=== PATIENT | female | born 1950 | race Caucasian/White ===

== ENCOUNTER 2017-10-18 01:54 | Emergency (ER) | payer MEDICARE, BC ==
[2017-10-18 02:04] VITALS: BP 143/70
--- NOTE | 2017-10-18 02:43 | EDM.PDOC ---
ED HPI GENERAL MEDICAL PROBLEM - General Chief Complaint: Cardiovascular Problem Stated Complaint: BOTH LEGS ARE SWOLLEN Time Seen by Provider: 10/18/17 02:09 Source of Information: Reports: Patient, Family (Daughter) History Limitations: Reports: No Limitations - History of Present Illness INITIAL COMMENTS - FREE TEXT/NARRATIVE: The patient states that she fell onto her right knee, not all the way to the ground, about one week ago. She developed ecchymosis and swelling to her right knee. She saw Dr. Mixon in occupational medicine on 10/10/2017, who recommended no treatment, as it appeared that the patient simply had a bruise to the area. Several days later, the patient noticed ecchymosis to her right foot and ankle, which has since resolved. The patient states that she noticed edema to her right leg this past Friday, , and edema to her left leg yesterday, 10/17/2017. She denies pain to either leg. The patient acknowledges that she does not watch her salt intake. Ordinarily, due to chronic pain, she is not able to ambulate very far, but acknowledges that she has ambulated less than usual recently. The patient has had palpitations for nearly one year, which is currently being worked up. She reports occasional dyspnea, but no different than her usual. The patient's PCP is Dr. Jennifer Berman. - Related Data Allergies Allergy/AdvReac Type Severity Reaction Status Date / Time Dairy Products Allergy Cannot Verified 11/08/14 15:20 Remember duloxetine HCl Allergy Rash Verified 11/08/14 15:20 [From Cymbalta] hydrocodone Allergy Itching Verified 11/08/14 15:20 milnacipran HCl Allergy Rash Verified 11/08/14 15:20 [From Savella] Penicillins Allergy Hives Verified 11/08/14 15:20 pregabalin [From Lyrica] Allergy Rash Verified 11/08/14 15:20 sertraline HCl [From Zoloft] Allergy Rash Verified 11/08/14 15:20 tramadol Allergy Cannot Verified 08/09/16 14:59 Remember turkey Allergy Cannot Verified 05/02/15 11:38 Remember venom-honey bee Allergy Swelling Verified 11/08/14 15:20 [bee venom (honey bee)] lactase AdvReac Other Verified 08/09/16 14:57 milnacipran AdvReac Tachycardia Verified 08/09/16 14:58 tomato AdvReac Stomach Verified 08/09/16 14:58 Upset wheat AdvReac Other Verified 08/09/16 14:59 duck Allergy Cannot Uncoded 05/02/15 11:38 Remember dust Allergy Cannot Uncoded 05/02/15 11:38 Remember pet dander Allergy Cannot Uncoded 05/02/15 11:38 Remember Home Meds: Home Meds Amitriptyline [Elavil] 1 tab PO BEDTIME 11/08/14 [History] Amitriptyline [Elavil] 1 tab PO BEDTIME 11/08/14 [History] Baclofen 1 - 2 tab PO TID PRN 11/08/14 [History] LORazepam [Ativan] 1 - 2 tab PO Q6H PRN 11/08/14 [History] Lansoprazole 30 mg PO BID 11/08/14 [History] Metoprolol Succinate [Toprol XL] 50 mg PO DAILY 11/08/14 [History] Zolpidem [Ambien] 10 mg PO BEDTIME 11/08/14 [History] amLODIPine Besylate [Amlodipine Besylate] 5 mg PO BID 11/08/14 [History] metFORMIN [Glucophage] 500 mg PO BIDM 11/08/14 [History] Ondansetron [Zofran ODT] 4 mg PO Q6H 05/02/15 [History] atorvaSTATin Calcium [Atorvastatin Calcium] 20 mg PO BEDTIME 05/02/15 [History] Past Medical History HEENT History: Reports: Allergic Rhinitis, Impaired Vision Other HEENT History: WEARS GLASSES Cardiovascular History: Reports: High Cholesterol, Hypertension Respiratory History: Reports: Pneumothorax, Sleep Apnea Gastrointestinal History: Reports: GERD, PUD Genitourinary History: Reports: Urinary Incontinence : 2 Musculoskeletal History: Reports: Arthritis, Back Pain, Chronic, Osteoarthritis Neurological History: Reports: Other (See Below) (Lacunar infarcts on MRI of the brain) Psychiatric History: Reports: Addiction (Alcohol), Anxiety, Depression, Other ( See Below) (Fibromyalgia) Endocrine/Metabolic History: Reports: Diabetes, Type II, Obesity/BMI 30+ Hematologic History: Reports: Blood Transfusion(s) Oncologic (Cancer) History: Reports: Breast (left) - Past Surgical History GI Surgical History: Reports: Cholecystectomy Female Surgical History: Reports: Hysterectomy Neurological Surgical History: Reports: Lumbar Spine (x 2) Oncologic Surgical History: Reports: Lumpectomy (left) Social & Family History - Family History Family Medical History: Noncontributory - Tobacco Use Smoking Status *Q: Current Every Day Smoker Years of Tobacco use: 56 Packs/Tins Daily: 1 Packs/Tins Daily Comment: Down from 2 ppd - Caffeine Use Caffeine Use: Reports: Coffee, Tea - Alcohol Use Alcohol Use History: Yes Date/Time of Last Drink Comment: Alcoholic, in recovery - Recreational Drug Use Recreational Drug Use: No - Living Situation & Occupation Living situation: Reports: , Alone Occupation: Unemployed ED ROS GENERAL - Review of Systems Review Of Systems: ROS reveals no pertinent complaints other than HPI. ED EXAM, GENERAL - Physical Exam Exam: See Below Exam Limited By: No Limitations General Appearance: Alert, WD/WN, No Apparent Distress Extremities: Other (1+ pretibial pitting edema bilaterally, with edema to the posterior aspect of the right foot, but not the left. Neurovascular status of the bilateral lower extremities is intact.) Course - Vital Signs Last Recorded V/S: Last Vital Signs Temp 35.9 C 10/18/17 02:01 Pulse 73 10/18/17 02:01 Resp 18 10/18/17 02:01 BP 143/70 H 10/18/17 02:01 Pulse Ox 90 L 10/18/17 02:01 - Re-Assessments/Exams Free Text/Narrative Re-Assessment/Exam: 10/18/17 02:36 The patient presents with bilateral lower extremity edema, slightly worse on the right than the left. She acknowledges that she does not watch her salt intake, and has also had decreased activity for the past several days. Clinically, I have a low suspicion for a DVT, particularly because the edema is in both legs, however, I offered to call the bakery technician in, if the patient wanted to undergo a Doppler ultrasound. She declined, and agrees to follow-up with her PCP, Dr. Jennifer Berman, this coming week, where she could have an outpatient Doppler. In the meantime, I am recommending that the patient consciously decrease her salt intake and elevate her feet when not ambulating. I would also like her to increase her ambulation. We discussed the use of compression stockings, however, the patient reports that she would have difficulty getting them on. Departure - Departure Time of Disposition: 02:37 Disposition: Home, Self-Care 01 Condition: Good Clinical Impression: Bilateral lower extremity edema - Discharge Information Referrals: Jennifer Berman MD [Primary Care Provider] - Additional Instructions: You were seen in the emergency room for edema both of your legs. Based on your history and physical examination, the edema is MOST LIKELY due to excessive salt intake and prolonged dependency of your legs. We recommend that you consciously decrease your salt intake to 1200 mg per day. Elevate your feet when not walking around, however, we would recommend that you increase your ambulation. If someone can help you put them on, knee-high compression stockings can help reduce and prevent reaccumulation of leg swelling. If your legs are still swollen by 10/20/2017, please follow-up with your PCP, Dr. Jennifer Berman, for further evaluation. If any other problems, please do not hesitate to return to the ER.
== END 2017-10-18 02:53 | disposition home or self-care (01) ==
LOC: JD.ED 01:54
DX: R60.0 Localized edema (principal); E78.00 Pure hypercholesterolemia, unspecified; I10 Essential (primary) hypertension; E11.9 Type 2 diabetes mellitus without complications; F17.210 Nicotine dependence, cigarettes, uncomplicated; Z91.011 Allergy to milk products; Z88.5 Allergy status to narcotic agent; Z88.8 Allergy status to other drugs, medicaments and biological substances; Z88.0 Allergy status to penicillin; Z91.030 Bee allergy status; Z91.018 Allergy to other foods; Z91.048 Other nonmedicinal substance allergy status; Z79.899 Other long term (current) drug therapy; Z79.84 Long term (current) use of oral hypoglycemic drugs
CPT/HCPCS: 99283

== ENCOUNTER 2018-01-08 17:39 | Emergency (ER) | payer MEDICARE, BC ==
[2018-01-08] MEDS ORDERED: Alum Hydrox/Mag Hydrox/Simeth 30 ML, Lidocaine 2% 15 ML PO ONE ×2 (18:29)
[2018-01-08] MEDS ORDERED: Albuterol 0.083% 2.5 MG/3 ML Neb Soln NEB ONE (18:29)
[2018-01-08] MEDS ORDERED: Sodium Chloride 0.9% 10 ML Syringe FLUSH PRN (18:32)
--- NOTE | 2018-01-08 18:33 | EDM.PDOC ---
ED HPI GENERAL MEDICAL PROBLEM - General Chief Complaint: Chest Pain Stated Complaint: TIGHT CHEST Time Seen by Provider: 01/08/18 18:14 Source of Information: Reports: Patient History Limitations: Reports: No Limitations - History of Present Illness INITIAL COMMENTS - FREE TEXT/NARRATIVE: Patient is a 67-year-old female presents ED complaining of tightness around her chest is been present for many weeks. States the tightness is rated 3 out of 10. Worse with taking a deep breath. She has no chest pain currently. But states at times she experiences intermittent sharp discomfort to the midsternal portion of her chest that comes and goes. Not worsened with exertion. Last week she experienced sharp pain to the chest and took a nitroglycerin. Pain went away immediately. As of recent she has noticed some increase in acid reflux and takes a PPI daily. Again at times she has developed some epigastric discomfort. There is no nausea. No diaphoresis. No dizziness. No fever. No shortness of breath. She has a cough that is chronic. She continues to smoke 3 cigarettes a day. There's been no recent sick exposures. She does have history of fibromyalgia and notes it's hard to ascertain if the pain is related to her fibromyalgia or not. She did attempt to get in with her primary care provider today and they refused to see her. They told her to come into the ED. Per patient she has a history of heart disease but has never been formally worked up. She's had a chemically induced stress test and states it came back okay. She was placed on nitroglycerin for chest heaviness at onetime with no additional evaluation. Chest Pain Score (Numeric/FACES): 3 - Related Data Allergies Allergy/AdvReac Type Severity Reaction Status Date / Time Dairy Products Allergy Cannot Verified 01/08/18 17:48 Remember duloxetine HCl Allergy Rash Verified 01/08/18 17:48 [From Cymbalta] hydrocodone Allergy Itching Verified 01/08/18 17:48 milnacipran HCl Allergy Rash Verified 01/08/18 17:48 [From Savella] Penicillins Allergy Hives Verified 01/08/18 17:48 pregabalin [From Lyrica] Allergy Rash Verified 01/08/18 17:48 sertraline HCl [From Zoloft] Allergy Rash Verified 01/08/18 17:48 tramadol Allergy Cannot Verified 01/08/18 17:48 Remember turkey Allergy Cannot Verified 01/08/18 17:48 Remember venom-honey bee Allergy Swelling Verified 01/08/18 17:48 [bee venom (honey bee)] lactase AdvReac Other Verified 01/08/18 17:48 milnacipran AdvReac Tachycardia Verified 01/08/18 17:48 tomato AdvReac Stomach Verified 01/08/18 17:48 Upset wheat AdvReac Other Verified 01/08/18 17:48 duck Allergy Cannot Uncoded 01/08/18 17:48 Remember dust Allergy Cannot Uncoded 01/08/18 17:48 Remember pet dander Allergy Cannot Uncoded 01/08/18 17:48 Remember Home Meds: Home Meds Amitriptyline [Elavil] 1 tab PO BEDTIME 11/08/14 [History] Amitriptyline [Elavil] 1 tab PO BEDTIME 11/08/14 [History] Baclofen 1 - 2 tab PO TID PRN 11/08/14 [History] LORazepam [Ativan] 1 - 2 tab PO Q6H PRN 11/08/14 [History] Lansoprazole 30 mg PO BID 11/08/14 [History] Metoprolol Succinate [Toprol XL] 50 mg PO DAILY 11/08/14 [History] Zolpidem [Ambien] 10 mg PO BEDTIME 11/08/14 [History] amLODIPine Besylate [Amlodipine Besylate] 5 mg PO BID 11/08/14 [History] metFORMIN [Glucophage] 500 mg PO BIDM 11/08/14 [History] Ondansetron [Zofran ODT] 4 mg PO Q6H 05/02/15 [History] atorvaSTATin Calcium [Atorvastatin Calcium] 20 mg PO BEDTIME 05/02/15 [History] Albuterol [Proventil HFA] 200 puff INH Q4H PRN #1 inhaler 01/08/18 [Rx] Past Medical History HEENT History: Reports: Allergic Rhinitis, Impaired Vision Other HEENT History: WEARS GLASSES Cardiovascular History: Reports: High Cholesterol, Hypertension Respiratory History: Reports: Pneumothorax, Sleep Apnea Other Respiratory History: COUGH, LUNG NODULE, LUNG ABSCESS Gastrointestinal History: Reports: GERD, PUD Other Gastrointestinal History: vomitting, weight loss Genitourinary History: Reports: Urinary Incontinence Other [employer] History: HX OF X2, VAGINAL BIRTHS, L breast lump with lumpectomy Musculoskeletal History: Reports: Arthritis, Back Pain, Chronic, Osteoarthritis Other Musculoskeletal History: osteopenia, low back surgery, chronic pain Neurological History: Reports: Other (See Below) Other Neuro History: stroke Psychiatric History: Reports: Addiction, Anxiety, Depression, Other (See Below) Other Psychiatric History: HX ETOH ABUSE Endocrine/Metabolic History: Reports: Diabetes, Type II, Obesity/BMI 30+ Hematologic History: Reports: Blood Transfusion(s) Oncologic (Cancer) History: Reports: Breast - Past Surgical History GI Surgical History: Reports: Cholecystectomy Female Surgical History: Reports: Hysterectomy Neurological Surgical History: Reports: Lumbar Spine Oncologic Surgical History: Reports: Lumpectomy Social & Family History - Family History Family Medical History: Noncontributory - Tobacco Use Smoking Status *Q: Current Every Day Smoker Years of Tobacco use: 50 Packs/Tins Daily: 0.1 - Caffeine Use Caffeine Use: Reports: Coffee, Tea - Recreational Drug Use Recreational Drug Use: No - Living Situation & Occupation Living situation: Reports: , Alone Occupation: Unemployed ED ROS GENERAL - Review of Systems Review Of Systems: ROS reveals no pertinent complaints other than HPI. ED EXAM, GENERAL - Physical Exam Exam: See Below Exam Limited By: No Limitations General Appearance: Alert, WD/WN, No Apparent Distress Ears: Hearing Grossly Normal Nose: Normal Inspection, Normal Mucosa Throat/Mouth: Normal Inspection, Normal Oropharynx, Normal Voice, No Airway Compromise Head: Atraumatic, Normocephalic Neck: Normal Inspection, Supple, Non-Tender, Full Range of Motion. No: Carotid Bruit, Lymphadenopathy (L), Lymphadenopathy (R) Respiratory/Chest: No Respiratory Distress, Lungs Clear, Normal Breath Sounds, No Accessory Muscle Use, Chest Non-Tender Cardiovascular: Normal Peripheral Pulses, Regular Rate, Rhythm, No Murmur ( obvious) Peripheral Pulses: 2+: Radial (L), Radial (R), Posterior Tibial (L), Posterior Tibial (R) GI/Abdominal: Normal Bowel Sounds, Soft, Non-Tender, No Organomegaly, No Distention Back Exam: Normal Inspection Extremities: Normal Inspection, Normal Range of Motion, Non-Tender (posterior lower legs), No Pedal Edema, Normal Capillary Refill, Other (Pain noted to the left posterior knee, chronic, present for years. ) Neurological: Alert, Oriented, CN II-XII Intact, Normal Cognition, No Motor/ Sensory Deficits Psychiatric: Normal Affect, Normal Mood Skin Exam: Warm, Dry, Intact, Normal Color, No Rash Course - Vital Signs Last Recorded V/S: Last Vital Signs Temp 98.2 F 01/08/18 17:48 Pulse 62 01/08/18 20:20 Resp 16 01/08/18 17:48 BP 159/72 H 01/08/18 20:20 Pulse Ox 96 01/08/18 18:39 - Orders/Labs/Meds Orders: Active Orders 24 hr Category Date Time Status EKG 12 Lead [EKG Documentation Completion] [RC] STAT Care 01/08/18 18:16 Active Peripheral IV Care [RC] . DIRECTED Care 01/08/18 18:32 Active RT Aerosol Therapy [RC] ASDIRECTED Care 01/08/18 18:30 Active Chest 1V Frontal [CR] Stat Exams 01/08/18 18:26 Taken Peripheral IV Insertion Adult [OM.PC] Routine Oth 01/08/18 18:32 Ordered Labs: Laboratory Tests 01/08/18 01/08/18 01/08/18 Range/Units 18:28 18:28 18:28 WBC 8.45 (3.98-10.04) K/mm3 RBC 4.40 (3.98-5.22) M/mm3 Hgb 14.1 (11.2-15.7) gm/L Hct 42.6 (34.1-44.9) % MCV 96.8 H (79.4-94.8) fl MCH 32.0 (25.6-32.2) pg MCHC 33.1 (32.2-35.5) g/dl RDW Std Deviation 46.5 H (36.4-46.3) fL Plt Count 238 (182-369) K/mm3 MPV 10.1 (9.4-12.3) fl Neutrophils % (Manual) 55 (40-60) % Band Neutrophils % 0 (0-10) % Lymphocytes % (Manual) 41 H (20-40) % Atypical Lymphs % 0 % Monocytes % (Manual) 4 (2-10) % Eosinophils % (Manual) 0 L (0.7-5.8) % Basophils % (Manual) 0 L (0.1-1.2) Platelet Estimate Adequate Plt Morphology Comment Normal RBC Morph Comment Normal PT 10.6 (9.5-12.1) SECONDS INR 0.97 APTT 26 (24-31) SECONDS D-Dimer, Quantitative (0.19-0.50) mg/L Sodium 140 (136-145) mEq/L Potassium 4.1 (3.5-5.1) mEq/L Chloride 106 (98-107) mEq/L Carbon Dioxide 23 (21-32) mEq/L Anion Gap 15.1 H (5-15) BUN 15 (7-18) mg/dL Creatinine 0.8 (0.55-1.02) mg/dL Est Cr Clr Drug Dosing 64.54 mL/min Estimated GFR (MDRD) > 60 (>60) mL/min BUN/Creatinine Ratio 18.8 H (14-18) Glucose 137 H (80-115) mg/dL Calcium 9.2 (8.5-10.1) mg/dL Total Bilirubin 0.2 (0.2-1.0) mg/dL AST 16 (15-37) U/L ALT 19 (14-59) U/L Alkaline Phosphatase 113 (46-116) U/L Troponin I < 0.017 (0.00-0.056) ng/mL C-Reactive Protein < 0.2 (<1.0) mg/dL Total Protein 6.8 (6.4-8.2) g/dl Albumin 3.3 L (3.4-5.0) g/dl Globulin 3.5 gm/dL Albumin/Globulin Ratio 0.9 L (1-2) Lipase 261 (73-393) U/L Urine Color (Yellow) Urine Appearance (Clear) Urine pH (5.0-8.0) Ur Specific Gillespie (1.005-1.030) Urine Protein (Negative) Urine Glucose (UA) (Negative) Urine Ketones (Negative) Urine Occult Blood (Negative) Urine Nitrite (Negative) Urine Bilirubin (Negative) Urine Urobilinogen (0.2-1.0) Ur Leukocyte Esterase (Negative) Urine RBC (0-5) /hpf Urine WBC (0-5) /hpf Ur Epithelial Cells (0-5) /hpf Urine Bacteria (FEW) /hpf Urine Mucus (FEW) /hpf 01/08/18 01/08/18 Range/Units 18:28 19:35 WBC (3.98-10.04) K/mm3 RBC (3.98-5.22) M/mm3 Hgb (11.2-15.7) gm/L Hct (34.1-44.9) % MCV (79.4-94.8) fl MCH (25.6-32.2) pg MCHC (32.2-35.5) g/dl RDW Std Deviation (36.4-46.3) fL Plt Count (182-369) K/mm3 MPV (9.4-12.3) fl Neutrophils % (Manual) (40-60) % Band Neutrophils % (0-10) % Lymphocytes % (Manual) (20-40) % Atypical Lymphs % % Monocytes % (Manual) (2-10) % Eosinophils % (Manual) (0.7-5.8) % Basophils % (Manual) (0.1-1.2) Platelet Estimate Plt Morphology Comment RBC Morph Comment PT (9.5-12.1) SECONDS INR APTT (24-31) SECONDS D-Dimer, Quantitative 0.59 H (0.19-0.50) mg/L Sodium (136-145) mEq/L Potassium (3.5-5.1) mEq/L Chloride (98-107) mEq/L Carbon Dioxide (21-32) mEq/L Anion Gap (5-15) BUN (7-18) mg/dL Creatinine (0.55-1.02) mg/dL Est Cr Clr Drug Dosing mL/min Estimated GFR (MDRD) (>60) mL/min BUN/Creatinine Ratio (14-18) Glucose (80-115) mg/dL Calcium (8.5-10.1) mg/dL Total Bilirubin (0.2-1.0) mg/dL AST (15-37) U/L ALT (14-59) U/L Alkaline Phosphatase (46-116) U/L Troponin I (0.00-0.056) ng/mL C-Reactive Protein (<1.0) mg/dL Total Protein (6.4-8.2) g/dl Albumin (3.4-5.0) g/dl Globulin gm/dL Albumin/Globulin Ratio (1-2) Lipase (73-393) U/L Urine Color Light yellow (Yellow) Urine Appearance Clear (Clear) Urine pH 6.5 (5.0-8.0) Ur Specific Gillespie 1.015 (1.005-1.030) Urine Protein Negative (Negative) Urine Glucose (UA) Negative (Negative) Urine Ketones Negative (Negative) Urine Occult Blood Negative (Negative) Urine Nitrite Negative (Negative) Urine Bilirubin Negative (Negative) Urine Urobilinogen 0.2 (0.2-1.0) Ur Leukocyte Esterase Trace H (Negative) Urine RBC Not seen (0-5) /hpf Urine WBC 0-5 (0-5) /hpf Ur Epithelial Cells 0-5 (0-5) /hpf Urine Bacteria Few (FEW) /hpf Urine Mucus Not seen (FEW) /hpf Meds: Medications Discontinued Medications Generic Name Dose Route Start Last Admin Trade Name Freq PRN Reason Stop Dose Admin Albuterol 2.5 mg 01/08/18 18:29 01/08/18 18:38 Proventil Neb Soln NEB 01/08/18 18:30 2.5 mg ONETIME ONE Administration Al Hydroxide/Mg Hydroxide 30 0 ml 01/08/18 18:29 01/08/18 18:46 ml/ Lidocaine HCl 15 ml PO 01/08/18 18:30 45 ml ONETIME ONE Administration Sodium Chloride 1,000 mls @ 125 mls/hr 01/08/18 18:45 01/08/18 18:49 Normal Saline IV 125 mls/hr ASDIRECTED CYNDY Administration Sodium Chloride 10 ml 01/08/18 18:32 01/08/18 18:49 Saline Flush FLUSH 10 ml ASDIRECTED PRN Administration Keep Vein Open - Re-Assessments/Exams Free Text/Narrative Re-Assessment/Exam: IV established with normal saline 125 mL per hour. Albuterol neb treatment 2.5 mg ordered. GI cocktail ordered as well. Initial labs and studies will include: CBC, chem 14, CRP, d-dimer, lipase, coag studies, troponin, UA, chest x-ray on view, and EKG. EKG sinus rhythm with no acute ST changes noted. CXR impression: reviewed with Dr. Baker. No acute findings noted. Final interpretation is pending. Labs reviewed: CBC essentially normal. D-dimer is mildly elevated at 0.59 age appropriate. CMP was essentially normal as well. Troponin less than 0.017. CRP normal. Lipase 261. Symptoms been going on for multiple weeks. Suspected related to the heart her enzyme she did have positive. 1934 reassessment, patient states after the breathing treatment she has no chest tightness and also after burping the discomfort is gone. I suspect this is more likely related to her chronic lung disease and also GERD. Again she has a history of acid reflux and continues to smoke cigarettes daily. She has a long history of smoking. I will get the patient up and ambulate around the ED and see how she does. She had no pain with ambulation to the restroom. Patient got up and walked with nursing staff with no issues. She had no chest pain or shortness of breath. She felt quite well getting up and walking. She is wanting to go home. Second troponin was ordered for 2129. Patient is not wanting to wait for 2nd troponin. She would like to go home at this time. Again suspect symptoms are related to her GERD and also chronic lung disease. She may have a component of gastritis and is currently on lansoprazole. Will have her continue those as prescribed with addition of Zantac as needed. She will see her PCP this coming week for reevaluation. We will discharge her home with a prescription for albuterol. Departure - Departure Time of Disposition: 20:34 Disposition: Home, Self-Care 01 Condition: Good Clinical Impression: Atypical chest pain GERD (gastroesophageal reflux disease) Qualifiers: Esophagitis presence: esophagitis presence not specified Qualified Code(s): K21.9 - Gastro-esophageal reflux disease without esophagitis Prescriptions: Albuterol [Proventil HFA] 200 puff INH Q4H PRN #1 inhaler PRN Reason: Dyspnea Instructions: Heartburn, Food Choices for Gastroesophageal Reflux Disease, Adult, Nonspecific Chest Pain Referrals: Jennifer Berman MD [Primary Care Provider] - Forms: ED Department Discharge Additional Instructions: Continue taking all home medications as prescribed. In addition will add Zantac 150 milligrams at at bedtime if acid reflux persist. No eating or drinking within 4 hours of going to bed. Please review the foods to refrain from with GERD education pamphlet. Take albuterol inhaler 1-2 puffs every 4 hours as needed for cough and shortness of breath. Please follow up with your primary care provider this coming week for reevaluation. Return to the ED if you develop any new or worsening symptoms as discussed. - My Orders Last 24 Hours: My Active Orders 01/08/18 18:16 EKG 12 Lead [EKG Documentation Completion] [RC] STAT 01/08/18 18:26 Chest 1V Frontal [CR] Stat 01/08/18 18:30 RT Aerosol Therapy [RC] ASDIRECTED 01/08/18 18:32 Peripheral IV Care [RC] . DIRECTED Peripheral IV Insertion Adult [OM.PC] Routine - Assessment/Plan Last 24 Hours: My Active Orders 01/08/18 18:16 EKG 12 Lead [EKG Documentation Completion] [RC] STAT 01/08/18 18:26 Chest 1V Frontal [CR] Stat 01/08/18 18:30 RT Aerosol Therapy [RC] ASDIRECTED 01/08/18 18:32 Peripheral IV Care [RC] . DIRECTED Peripheral IV Insertion Adult [OM.PC] Routine
[2018-01-08] MEDS ORDERED: Sodium Chloride 0.9% 1,000 ML IV SCH (18:45)
[2018-01-08 20:21] VITALS: BP 159/72
--- NOTE | 2018-01-09 10:05 | CR ---
Chest: Portable view of the chest was obtained. Comparison: Prior chest x-ray of 12/22/14. Heart size and mediastinum are normal. Lungs are clear. Minimal scoliosis is noted within the spine. Impression: 1. Nothing acute is seen on portable chest x-ray. Diagnostic code #1
== END 2018-01-08 20:43 | disposition home or self-care (01) ==
LOC: JD.ED 17:39
DX: K21.9 Gastro-esophageal reflux disease without esophagitis (principal); I11.9 Hypertensive heart disease without heart failure; E11.9 Type 2 diabetes mellitus without complications; E66.9 Obesity, unspecified; M79.7 Fibromyalgia; Z79.84 Long term (current) use of oral hypoglycemic drugs; F17.210 Nicotine dependence, cigarettes, uncomplicated; Z79.899 Other long term (current) drug therapy; Z88.5 Allergy status to narcotic agent; Z88.0 Allergy status to penicillin; Z91.030 Bee allergy status; Z88.8 Allergy status to other drugs, medicaments and biological substances; Z91.018 Allergy to other foods; Z91.011 Allergy to milk products
CPT/HCPCS: 36415; 71045; 80053; 81001; 83690; 84484; 85007; 85027; 85379; 85610; 85730; 86140; 93005; 94640; 96360; 96361; 99285; A9270; J7040; J7050

== ENCOUNTER 2019-05-28 17:25 | Inpatient (IN) | payer MEDICARE, BC ==
--- NOTE | 2019-05-28 17:59 | PCM.HP.2 ---
H&P History of Present Illness - General Date of Service: 05/28/19 Admit Problem/Dx: Abdominal Pain with New onset of Afib Source of Information: Patient, Family, Old Records, Provider History Limitations: Reports: No Limitations - History of Present Illness Initial Comments - Free Text/Narative: This is a 68 yo elderly white female with past medical hx/o Fibromyalgia, HTN, DM2, Constipation, Depression, GERD, Vincent's Esophagus, Small Hiatal Hernia, Chronic Abdominal Pain, and Obesity who was seen for routine visit with her PCP and was diagnosed with new onset of atrial fibrillation with HR in the low hundreds. She endorses chronic abdominal discomfort associated with nausea, vomiting, lightheadedness, dizziness and chest heaviness. She has had upper and lower endoscopy performed by Dr. Salter in [facility] back in Feb with benign results. However she has not gone back to see him for follow up since the procedures. She has not been diagnosed with gastroparesis or PUD. However she carries GERD, Hiatal Hernia, Vincent's Esophagus and long standing hx/o Diabetes. Her initial work up at the clinic shows a fairly unremarkable WBC. Her chemistry is significant for BS of 144 and Cl of 110. Her Lipid panel shows a Chol of 196, Trig of 201, HLD of 49, and LDL of 107. Her UA is negative for UTI. Her A1C is 6.0. Patient is coming in primarily for further management of new onset of atrial fibrillation. - Related Data Allergies/Adverse Reactions: Allergies Allergy/AdvReac Type Severity Reaction Status Date / Time Dairy Products Allergy Cannot Verified 01/08/18 17:48 Remember duloxetine HCl Allergy Rash Verified 01/08/18 17:48 [From Cymbalta] hydrocodone Allergy Itching Verified 01/08/18 17:48 milnacipran HCl Allergy Rash Verified 01/08/18 17:48 [From Savella] Penicillins Allergy Hives Verified 01/08/18 17:48 pregabalin [From Lyrica] Allergy Rash Verified 01/08/18 17:48 sertraline HCl [From Zoloft] Allergy Rash Verified 01/08/18 17:48 tramadol Allergy Cannot Verified 01/08/18 17:48 Remember turkey Allergy Cannot Verified 01/08/18 17:48 Remember venom-honey bee Allergy Swelling Verified 01/08/18 17:48 [bee venom (honey bee)] lactase AdvReac Other Verified 01/08/18 17:48 milnacipran AdvReac Tachycardia Verified 01/08/18 17:48 tomato AdvReac Stomach Verified 01/08/18 17:48 Upset wheat AdvReac Other Verified 01/08/18 17:48 duck Allergy Cannot Uncoded 01/08/18 17:48 Remember dust Allergy Cannot Uncoded 01/08/18 17:48 Remember pet dander Allergy Cannot Uncoded 01/08/18 17:48 Remember Home Medications: Home Meds Baclofen 10 mg PO TID PRN 11/08/14 [History] LORazepam [Ativan] 1 mg PO BID PRN 11/08/14 [History] Metoprolol Succinate [Toprol XL] 100 mg PO DAILY 11/08/14 [History] Zolpidem [Ambien] 5 mg PO BEDTIME 11/08/14 [History] amLODIPine Besylate [Amlodipine Besylate] 5 mg PO DAILY 11/08/14 [History] metFORMIN [Glucophage] 500 mg PO BIDM 11/08/14 [History] Acetaminophen [Acetaminophen Extra Strength] 1,000 mg PO BID PRN 05/29/19 [ History] Aspirin [Halfprin] 81 mg PO DAILY 05/29/19 [History] Omeprazole 40 mg PO DAILY 05/29/19 [History] Past Medical History HEENT History: Reports: Allergic Rhinitis, Impaired Vision Other HEENT History: WEARS GLASSES Cardiovascular History: Reports: High Cholesterol, Hypertension Respiratory History: Reports: Pneumothorax, Sleep Apnea Other Respiratory History: COUGH, LUNG NODULE, LUNG ABSCESS Gastrointestinal History: Reports: GERD, PUD Other Gastrointestinal History: vomitting, weight loss Genitourinary History: Reports: Urinary Incontinence Other OB/BYN History: HX OF X2, VAGINAL BIRTHS, L breast lump with lumpectomy Musculoskeletal History: Reports: Arthritis, Back Pain, Chronic, Osteoarthritis Other Musculoskeletal History: osteopenia, low back surgery, chronic pain Neurological History: Reports: Other (See Below) Other Neuro History: stroke Psychiatric History: Reports: Addiction, Anxiety, Depression, Other (See Below) Other Psychiatric History: HX ETOH ABUSE Endocrine/Metabolic History: Reports: Diabetes, Type II, Obesity/BMI 30+ Hematologic History: Reports: Blood Transfusion(s) Oncologic (Cancer) History: Reports: Breast - Past Surgical History GI Surgical History: Reports: Cholecystectomy Female Surgical History: Reports: Hysterectomy Neurological Surgical History: Reports: Lumbar Spine Oncologic Surgical History: Reports: Lumpectomy Social & Family History - Family History Family Medical History: Noncontributory - Caffeine Use Caffeine Use: Reports: Coffee, Tea - Living Situation & Occupation Living situation: Reports: , Alone Occupation: Unemployed H&P Review of Systems - Review of Systems: Review Of Systems: See Below General: Denies: Fever, Chills, Fatigue, Weight Loss HEENT: Reports: No Symptoms Pulmonary: Denies: Shortness of Breath Cardiovascular: Reports: Other (chest heaviness) Gastrointestinal: Reports: Nausea, Vomiting, Other (abdominal discomfort). Denies: Abdominal Pain Genitourinary: Reports: No Symptoms Musculoskeletal: Reports: No Symptoms Skin: Reports: No Symptoms Psychiatric: Denies: Confusion, Depression, Anxiety Neurological: Denies: Confusion, Numbness, Seizure, Weakness Hematologic/Lymphatic: Reports: No Symptoms Immunologic: Reports: No Symptoms Exam - Exam Exam: See Below - Exam General: Alert, Oriented, Cooperative HEENT: Conjunctiva Clear, EACs Clear, EOMI, Hearing Intact, Mucosa Moist & [place] , Nares Patent, Normal Nasal Septum, Posterior Pharynx Clear, Pupils Equal, Pupils Reactive, TMs Clear Neck: Supple, Trachea Midline Lungs: Clear to Auscultation, Normal Respiratory Effort Cardiovascular: Irregular Rhythm GI/Abdominal Exam: Normal Bowel Sounds, Soft, Non-Tender, No Organomegaly, No Distention, No Abnormal Bruit (Female) Exam: Deferred Rectal (Female) Exam: Deferred Back Exam: Normal Inspection, Decreased Range of Motion Extremities: Normal Inspection, Normal Range of Motion, Non-Tender, No Pedal Edema, Normal Capillary Refill Peripheral Pulses: 2+: Posterior Tibial (L), Posterior Tibial (R), Dorsalis Pedis (L), Dorsalis Pedis (R) Skin: Warm, Dry, Intact Neurological: Cranial Nerves Intact Neuro Extensive - Mental Status: Oriented x3, Normal Cognition, Memory Intact Neuro Extensive - Motor, Sensory, Reflexes: CN II-XII Intact, Normal Gait Psychiatric: Alert, Normal Affect, Normal Mood - Patient Data Result Diagrams: 05/29/19 05:52 05/29/19 05:52 EKG INTERPRETATION EKG Date: 05/28/19 Time: 04:26 Rhythm: A-Fib Rate (Beats/Min): 106 [place]: RAD-Right [place] Deviation P-Wave: Absent QRS: Normal ST-T: Other (Flat T wave in inferior lead) Problem List Initiated/Reviewed/Updated: Yes Assessment/Plan Comment:: Acute: Atrial Fibrillation New onset Was found with irregular heart rate at the clinic with a HR f 106 on EKG ALFRED VASC score of 4; carries moderate high risk w/o anticoagulation PLAN: Thyroid panel 2D echo Friday-no services on weekend Rate control agent Warfarin and Heparin for stroke prophylaxis with INR goal of bet 2-3 Abdominal Discomfort with nausea nd vomiting Risk factors: GERD, Vincent's Esophagus, Long standing DM2, and Hiatal Hernia No GB but still has appendix No other GI surgery except for hysterectomy Has been going on for a while now No specific triggers Recently had Upper and lower endoscopy in [facility] Unfortunately prep was poor but had polypectomy Has not had follow up appointment since the procedure PLAN: Abdominal/Pelvis CT scan with oral and IV contrast 250 ml before and after CT scan Clear liquid diet for now Gastric emptying if CT scan is negative Lightheadedness and Dizziness Carries a hx/o dizziness felt to be associated with abdominal discomfort Gets symptomatic with abrupt change in position or when she gets up quickly However she was just diagnosed with new onset of atrial fibrillation She has no focal neurological deficits PLAN: Fall Precautions and PT/OT eval UA negative Chest Pain r/o ACS R/o Angina Equivalent Risk Factors: HTN, HLD, DM2, and Atherosclerosis (diagnosed on previous abdominal CT scan taken in 2016) Heaviness today on presentation to her PCP for routine follow up appointment PLAN: Serial Troponin and EKG Lipid Panel in AM Consider stress test Friday Had stress test back in December with benign work up She follows cardiology in [place] Hyperglycemia with DM2. BS of 144 from the clinic. Last A1C 6 taken on today shows A1C of 6.0. Accu-check Q6H with low dose ISS. Dyslipidemia Lipid Panel at the clinic shows elevated Trig level of 201 nd LDL of 107. However HDL is 49 Already on Atorvastatin 20 mg po Daily AHA diet once po with regular meal Chronic: Fibromyalgia, HTN, DM2, Constipation, Depression, GERD, Vincent's Esophagus, Small Hiatal Hernia, Chronic Abdominal Pain, and Obesity Plan: Admit to [facility] as directed admit. CP work up. Clear liquid diet. Resume some home meds once verified. Abdominal/Pelvis CT scan. IVF for hydration. Fall precautions. GI prophylaxis. DVT/Stroke prophylaxis as above. PT/OT consult. Code status is full. - Mortality Measure Prognosis:: Good
[2019-05-28] MEDS ORDERED: Bisacodyl 5 MG Tab PO PRN (18:01)
[2019-05-28] MEDS ORDERED: Ondansetron 4 MG/2 ML SDV IV PRN (18:01)
[2019-05-28] MEDS ORDERED: Albuterol/Ipratropium 3.0-0.5 MG/3 ML Neb Soln NEB PRN (18:01)
[2019-05-28] MEDS ORDERED: Polyethylene Glycol 3350 Powder 17 GM Packet PO PRN (18:01)
[2019-05-28] MEDS ORDERED: Promethazine 12.5 MG in Sodium Chloride 0.9% 50 ML IV PRN (18:01)
[2019-05-28] MEDS ORDERED: Acetaminophen 650 MG Supp RECTAL PRN (18:01)
[2019-05-28] MEDS ORDERED: Sodium Chloride 0.9% 500 ML IV ONE (18:10)
[2019-05-28] MEDS ORDERED: Lactated Ringers 1,000 ML IV SCH (18:15)
[2019-05-28] MEDS ORDERED: Metoprolol Tartrate 5 MG/5 ML SDV IVPUSH PRN (18:26)
[2019-05-28] MEDS ORDERED: Scopolamine 1.5 MG Transdermal Patch TRDERM ONE (19:37)
[2019-05-28] MEDS ORDERED: 50% Dextrose in Water 50 ML Syringe IVPUSH PRN (19:41)
[2019-05-28] MEDS ORDERED: Diatrizoate Meglumine/Diatrizoate Sodium 37% 120 ML Bottle PO ONE (20:48)
[2019-05-28] MEDS ORDERED: Iopamidol 612 MG/ML 100 ML Bottle IVPUSH ONE (20:48)
[2019-05-28] MEDS: Metoprolol Tartrate 25 MG Tab PO SCH (20:58)
[2019-05-28] MEDS: Heparin Sodium 5,000 Units/ML Vial SUBCUT SCH (21:01)
[2019-05-28] MEDS: Insulin Lispro 100 Units/ML 3 ML Vial SUBCUT SCH (22:15)
[2019-05-28] MEDS: Temazepam 7.5 MG Cap PO PRN (22:23)
[2019-05-29] MEDS: Ketorolac 30 MG/ML SDV IV PRN ×2 (02:57→08:48)
[2019-05-29] MEDS: Heparin Sodium 5,000 Units/ML Vial SUBCUT SCH (02:59)
--- NOTE | 2019-05-29 06:54 | PCM.PN ---
- General Info Date of Service: 05/29/19 Admission Dx/Problem (Free Text): Abdominal Pain with New onset of Afib Subjective Update: Follow Up Functional Status: Reports: Pain Controlled - Review of Systems General: Denies: Fever, Chills HEENT: Reports: No Symptoms Pulmonary: Denies: Shortness of Breath Cardiovascular: Denies: Chest Pain, Dyspnea on Exertion, Lightheadedness Gastrointestinal: Reports: Other (no abdominal discomfort but epigastric). Denies: Abdominal Pain, Nausea, Vomiting Genitourinary: Reports: No Symptoms Musculoskeletal: Reports: No Symptoms Skin: Denies: Cyanosis Neurological: Denies: Confusion, Seizure, Tingling Psychiatric: Denies: Anxiety, Agitation, Hallucinations Systems Review Comment:: Slept okay last night. No acute issues except for loose stool and bowel leakage. Her CT scan report read suggestive of gastroenteritis. - Patient Data Vitals - Most Recent: Last Vital Signs Temp 36.7 C 05/29/19 03:06 Pulse 81 05/29/19 03:06 Resp 12 05/29/19 03:06 BP 117/82 05/29/19 03:06 Pulse Ox 93 L 05/29/19 03:06 Weight - Most Recent: 88.269 kg I&O - Last 24 Hours: Intake & Output 05/28/19 05/28/19 05/29/19 14:59 22:59 06:59 Intake Total 500 2219 Output Total 975 Balance 500 1244 Lab Results Last 24 Hours: Laboratory Results - last 24 hr 05/28/19 05/28/19 05/28/19 Range/Units 18:20 18:20 18:20 WBC (3.98-10.04) K/mm3 RBC (3.98-5.22) M/mm3 Hgb (11.2-15.7) gm/dl Hct (34.1-44.9) % MCV (79.4-94.8) fl MCH (25.6-32.2) pg MCHC (32.2-35.5) g/dl RDW Std Deviation (36.4-46.3) fL Plt Count (182-369) K/mm3 MPV (9.4-12.3) fl Neut % (Auto) (34.0-71.1) % Lymph % (Auto) (19.3-51.7) % [place] % (Auto) (4.7-12.5) % Eos % (Auto) (0.7-5.8) Baso % (Auto) (0.1-1.2) % Neut # (Auto) (1.56-6.13) K/mm3 Lymph # (Auto) (1.18-3.74) K/mm3 [place] # (Auto) (0.24-0.36) K/mm3 Eos # (Auto) (0.04-0.36) K/mm3 Baso # (Auto) (0.01-0.08) K/mm3 Sodium 144 (136-145) mEq/L Potassium 4.0 (3.5-5.1) mEq/L Chloride 107 (98-107) mEq/L Carbon Dioxide 24 (21-32) mEq/L Anion Gap 17.0 H (5-15) BUN 19 H (7-18) mg/dL Creatinine 0.9 (0.55-1.02) mg/dL Est Cr Clr Drug Dosing TNP Estimated GFR (MDRD) > 60 (>60) mL/min BUN/Creatinine Ratio 21.1 H (14-18) Glucose 86 (80-115) mg/dL POC Glucose (80-115) mg/dL Calcium 9.1 (8.5-10.1) mg/dL Magnesium 2.3 (1.8-2.4) mg/dl Total Bilirubin 0.3 (0.2-1.0) mg/dL AST 16 (15-37) U/L ALT 28 (14-59) U/L Alkaline Phosphatase 120 H (46-116) U/L CK-MB (CK-2) (0-3.6) ng/ml Troponin I (0.00-0.056) ng/mL C-Reactive Protein 0.2 (<1.0) mg/dL Total Protein 7.3 (6.4-8.2) g/dl Albumin 3.7 (3.4-5.0) g/dl Globulin 3.6 gm/dL Albumin/Globulin Ratio 1.0 (1-2) Lipase (73-393) U/L TSH 3rd Generation 2.188 (0.358-3.74) uIU/mL 01/03/20 01/03/20 01/04/20 Range/Units 18:20 21:02 00:25 WBC (3.98-10.04) K/mm3 RBC (3.98-5.22) M/mm3 Hgb (11.2-15.7) gm/dl Hct (34.1-44.9) % MCV (79.4-94.8) fl MCH (25.6-32.2) pg MCHC (32.2-35.5) g/dl RDW Std Deviation (36.4-46.3) fL Plt Count (182-369) K/mm3 MPV (9.4-12.3) fl Neut % (Auto) (34.0-71.1) % Lymph % (Auto) (19.3-51.7) % [place] % (Auto) (4.7-12.5) % Eos % (Auto) (0.7-5.8) Baso % (Auto) (0.1-1.2) % Neut # (Auto) (1.56-6.13) K/mm3 Lymph # (Auto) (1.18-3.74) K/mm3 [place] # (Auto) (0.24-0.36) K/mm3 Eos # (Auto) (0.04-0.36) K/mm3 Baso # (Auto) (0.01-0.08) K/mm3 Sodium (136-145) mEq/L Potassium (3.5-5.1) mEq/L Chloride (98-107) mEq/L Carbon Dioxide (21-32) mEq/L Anion Gap (5-15) BUN (7-18) mg/dL Creatinine (0.55-1.02) mg/dL Est Cr Clr Drug Dosing Estimated GFR (MDRD) (>60) mL/min BUN/Creatinine Ratio (14-18) Glucose (80-115) mg/dL POC Glucose 96 (80-115) mg/dL Calcium (8.5-10.1) mg/dL Magnesium (1.8-2.4) mg/dl Total Bilirubin (0.2-1.0) mg/dL AST (15-37) U/L ALT (14-59) U/L Alkaline Phosphatase (46-116) U/L CK-MB (CK-2) 1.3 1.2 (0-3.6) ng/ml Troponin I < 0.017 < 0.017 (0.00-0.056) ng/mL C-Reactive Protein (<1.0) mg/dL Total Protein (6.4-8.2) g/dl Albumin (3.4-5.0) g/dl Globulin gm/dL Albumin/Globulin Ratio (1-2) Lipase 82 (73-393) U/L TSH 3rd Generation (0.358-3.74) uIU/mL 05/29/19 Range/Units 05:52 WBC 7.40 (3.98-10.04) K/mm3 RBC 4.15 (3.98-5.22) M/mm3 Hgb 12.9 (11.2-15.7) gm/dl Hct 41.0 (34.1-44.9) % MCV 98.8 H (79.4-94.8) fl MCH 31.1 (25.6-32.2) pg MCHC 31.5 L (32.2-35.5) g/dl RDW Std Deviation 47.6 H (36.4-46.3) fL Plt Count 217 (182-369) K/mm3 MPV 10.0 (9.4-12.3) fl Neut % (Auto) 50.3 (34.0-71.1) % Lymph % (Auto) 38.2 (19.3-51.7) % [place] % (Auto) 8.6 (4.7-12.5) % Eos % (Auto) 2.3 (0.7-5.8) Baso % (Auto) 0.3 (0.1-1.2) % Neut # (Auto) 3.72 (1.56-6.13) K/mm3 Lymph # (Auto) 2.83 (1.18-3.74) K/mm3 [place] # (Auto) 0.64 H (0.24-0.36) K/mm3 Eos # (Auto) 0.17 (0.04-0.36) K/mm3 Baso # (Auto) 0.02 (0.01-0.08) K/mm3 Sodium (136-145) mEq/L Potassium (3.5-5.1) mEq/L Chloride (98-107) mEq/L Carbon Dioxide (21-32) mEq/L Anion Gap (5-15) BUN (7-18) mg/dL Creatinine (0.55-1.02) mg/dL Est Cr Clr Drug Dosing Estimated GFR (MDRD) (>60) mL/min BUN/Creatinine Ratio (14-18) Glucose (80-115) mg/dL POC Glucose (80-115) mg/dL Calcium (8.5-10.1) mg/dL Magnesium (1.8-2.4) mg/dl Total Bilirubin (0.2-1.0) mg/dL AST (15-37) U/L ALT (14-59) U/L Alkaline Phosphatase (46-116) U/L CK-MB (CK-2) (0-3.6) ng/ml Troponin I (0.00-0.056) ng/mL C-Reactive Protein (<1.0) mg/dL Total Protein (6.4-8.2) g/dl Albumin (3.4-5.0) g/dl Globulin gm/dL Albumin/Globulin Ratio (1-2) Lipase (73-393) U/L TSH 3rd Generation (0.358-3.74) uIU/mL Med Orders - Current: Current Medications Acetaminophen (Tylenol) 650 mg PO Q4H PRN PRN Reason: Pain (Mild 1-3)/fever Acetaminophen (Tylenol) 650 mg RECTAL Q4H PRN PRN Reason: Pain (mild 1-3) Albuterol/Ipratropium (Duoneb 3.0-0.5 Mg/3 Ml) 3 ml NEB Q4H PRN PRN Reason: Shortness Of Breath/wheezing Bisacodyl (Dulcolax) 5 mg PO DAILY PRN PRN Reason: Constipation Dextrose/Water (Dextrose 50% In Water) 50 ml IVPUSH ASDIRECTED PRN PRN Reason: Hypoglycemia Heparin Sodium (Porcine) (Heparin Sodium) 5,000 units SUBCUT Q8H [facility] Last Admin: 05/29/19 02:59 Dose: 5,000 units Lactated Ringer's (Ringers, Lactated) 1,000 mls @ 50 mls/hr IV ASDIRECTED CYNDY Stop: 05/29/19 14:14 Last Admin: 05/28/19 22:14 Dose: 50 mls/hr Promethazine HCl 12.5 mg/ (Sodium Chloride) 50.5 mls @ 100 mls/hr IV Q6H PRN PRN Reason: Nausea/Vomiting Insulin Human Lispro (Humalog) 0 unit SUBCUT QIDACANDBED [facility]; Protocol Last Admin: 05/28/19 22:15 Dose: Not Given Ketorolac Tromethamine (Toradol) 15 mg IV Q6H PRN PRN Reason: Pain (moderate 4-6) Last Admin: 05/29/19 02:57 Dose: 15 mg Metoprolol Tartrate (Lopressor) 5 mg IVPUSH Q4H PRN PRN Reason: Tachycardia Metoprolol Tartrate (Lopressor) 12.5 mg PO BID [facility] Last Admin: 05/28/19 20:58 Dose: 12.5 mg Miscellaneous Information (Remove Patch) 1 ea TRDERM Q72H [facility] Last Admin: 05/28/19 22:14 Dose: Not Given Ondansetron HCl (Zofran) 4 mg IV Q6H PRN PRN Reason: Nausea/Vomiting Polyethylene Glycol (Miralax) 17 gm PO DAILY PRN PRN Reason: Constipation Senna/Docusate Sodium (Senna Plus) 1 tab PO BID PRN PRN Reason: Constipation Temazepam (Restoril) 7.5 mg PO BEDTIME PRN PRN Reason: Sleep Last Admin: 05/28/19 22:23 Dose: 7.5 mg Warfarin Sodium (Coumadin) 5 mg PO DAILY@1800 CYNDY Discontinued Medications Diatrizoate Meglum/Diatrizoate Sod (Gastrografin 37%) 60 ml PO ONETIME ONE Stop: 05/28/19 20:49 Last Admin: 05/28/19 21:45 Dose: 60 ml Sodium Chloride (Normal Saline) 500 mls @ 999 mls/hr IV .BOLUS ONE Stop: 05/28/19 18:40 Last Admin: 05/28/19 22:14 Dose: 999 mls/hr Iopamidol (Isovue-300 (61%)) 100 ml IVPUSH ONETIME ONE Stop: 05/28/19 20:49 Last Admin: 05/28/19 21:45 Dose: 100 ml Scopolamine (Transderm-Scop) 1.5 mg TRDERM Q72H ONE Stop: 05/28/19 19:38 Last Admin: 05/28/19 21:06 Dose: 1.5 mg - Exam General: Alert, Oriented, Cooperative, No Acute Distress HEENT: Pupils Equal, Pupils Reactive, EOMI, Mucous Membr. Moist/[place] Neck: Supple, Trachea Midline Lungs: Clear to Auscultation, Normal Respiratory Effort Cardiovascular: Irregular Rhythm GI/Abdominal Exam: Normal Bowel Sounds, Soft, Non-Tender, No Organomegaly, No Distention, No Abnormal Bruit, No Mass (Female) Exam: Deferred Back Exam: Normal Inspection, Decreased Range of Motion Extremities: Normal Inspection, Normal Range of Motion, Non-Tender, No Pedal Edema, Normal Capillary Refill Peripheral Pulses: 2+: Dorsalis Pedis (L), Dorsalis Pedis (R) Skin: Warm, Dry, Intact Neurological: No New Focal Deficit Psy/Mental Status: Alert, Normal Affect, Normal Mood Sepsis Event Note - Evaluation Sepsis Screening Result: No Definite Risk - Focused Exam Vital Signs: Vital Signs Temp Pulse Resp BP Pulse Ox 05/29/19 03:06 36.7 C 81 12 117/82 93 L 05/28/19 21:30 14 05/28/19 21:01 36.4 C 108 H 22 H 120/87 96 05/28/19 20:58 103 H 120/87 Date Exam was Performed: 05/29/19 Time Exam was Performed: 20:32 - Problem List Review Problem List Initiated/Reviewed/Updated: Yes - My Orders Last 24 Hours: My Active Orders 05/28/19 18:01 Height and Weight [RC] 04 Oxygen Therapy [RC] PRN Up ad Karli [RC] ASDIRECTED VTE/DVT Education [RC] BID Vital Signs [RC] Q4HR Consult to Case Management/Reducing System Operator [CONS] Routine Consult to Spiritual Care [CONS] Routine OT Evaluation and Treatment [CONS] Routine PT Evaluation and Treatment [CONS] Routine Acetaminophen [Tylenol] 650 mg PO Q4H PRN Acetaminophen [Tylenol] 650 mg RECTAL Q4H PRN Albuterol/Ipratropium [DuoNeb 3.0-0.5 MG/3 ML] 3 ml NEB Q4H PRN Docusate Sodium/Sennosides [Senna Plus] 1 tab PO BID PRN Ketorolac [Toradol] 15 mg IV Q6H PRN Ondansetron [Zofran] 4 mg IV Q6H PRN Polyethylene Glycol 3350 [MiraLAX] 17 gm PO DAILY PRN Promethazine [Phenergan] 12.5 mg Sodium Chloride 0.9% [Normal Saline] 50 ml IV Q6H Temazepam [Restoril] 7.5 mg PO BEDTIME PRN bisacodyL [Dulcolax] 5 mg PO DAILY PRN Resuscitation Status Routine 05/28/19 18:03 Cardiac Monitoring [RC] CONTINUOUS Intake and Output [RC] 04,16 05/28/19 18:05 RT Aerosol Therapy [RC] ASDIRECTED 05/28/19 18:15 Lactated Ringers [Ringers, Lactated] 1,000 ml IV ASDIRECTED 05/28/19 18:26 Metoprolol Tartrate [Lopressor] 5 mg IVPUSH Q4H PRN 05/28/19 18:27 Telemetry Monitoring [Cardiac Monitoring] [RC] . DIRECTED THYROXINE (T4) [REF] Routine 05/28/19 18:28 Abdomen Pelvis w Cont [CT] Routine 05/28/19 18:30 Metoprolol Tartrate [Lopressor] 12.5 mg PO BID 05/28/19 19:00 Heparin Sodium 5,000 units SUBCUT Q8H 05/28/19 19:34 Patient Status [ADT] Routine 05/28/19 19:40 Accu Check [Blood Glucose Check, Bedside] [RC] QIDACANDBED 05/28/19 19:41 Dextrose 50% in Water 50 ml IVPUSH ASDIRECTED PRN 05/28/19 19:45 Remove Patch 1 ea TRDERM Q72H 05/28/19 22:00 Insulin Lispro [HumaLOG] See Protocol SUBCUT QIDACANDBED 05/28/19 Dinner Clear Liquid Diet [DIET] 05/29/19 05:52 CKMB [CHEM] Q5H COMPREHENSIVE METABOLIC PN,CMP [CHEM] DAILY MAGNESIUM [CHEM] DAILY TROPONIN I [CHEM] Q5H 05/29/19 07:00 EKG Documentation Completion [RC] ASDIRECTED EKG 12 Lead [EK] Routine 05/29/19 18:00 Warfarin [Coumadin] 5 mg PO DAILY@1800 05/30/19 05:11 CBC WITH AUTO DIFF [HEME] AM 05/30/19 18:15 COMPREHENSIVE METABOLIC PN,CMP [CHEM] DAILY MAGNESIUM [CHEM] DAILY 05/31/19 05:11 CBC WITH AUTO DIFF [HEME] AM 05/31/19 18:15 COMPREHENSIVE METABOLIC PN,CMP [CHEM] DAILY MAGNESIUM [CHEM] DAILY 06/01/19 05:11 CBC WITH AUTO DIFF [HEME] AM 06/01/19 18:15 MAGNESIUM [CHEM] DAILY - Plan Plan:: Acute: Atrial Fibrillation, HR controlled New onset Was found with irregular heart rate at the clinic with a HR of 106 on EKG ALFRED VASC score of 4; carries moderate high risk w/o anticoagulation PLAN: Thyroid panel 2D echo Friday-no services on weekend Rate control agent- Metoprolol Succinate 50 mg po Daily Warfarin and Heparin for stroke prophylaxis with INR goal of bet 2-3 Gastroenteritis Risk factors: GERD, Vincent's Esophagus, Long standing DM2, and Hiatal Hernia No GB but still has appendix No other GI surgery except for hysterectomy No specific triggers Tolerated liquid diet last night No nausea or vomiting PLAN: Abdominal/Pelvis CT scan with oral and IV contrast confirms it Soft diet and advance as tolerated C. Diff screening Lightheadedness and Dizziness, Resolved Carries a hx/o dizziness felt to be associated with abdominal discomfort Gets symptomatic with abrupt change in position or when she gets up quickly However she was just diagnosed with new onset of atrial fibrillation She has no focal neurological deficits PLAN: Fall Precautions and PT/OT eval UA negative Chest Pain r/o ACS, Resolved R/o Angina Equivalent Risk Factors: HTN, HLD, DM2, and Atherosclerosis (diagnosed on previous abdominal CT scan taken in 2016) Heaviness today on presentation to her PCP for routine follow up appointment Serial troponin x 3 all negative No more chest pain PLAN: Had stress test back in December with benign work up Outpatient follow up with cardiology in [place] after discharge Hyperglycemia with DM2, Improved BS of 144 from the clinic--> now 116 Last A1C 6 taken on today shows A1C of 6.0 PLAN: Accu-check Q6H with low dose ISS Dyslipidemia Lipid Panel at the clinic shows elevated Trig level of 201 nd LDL of 107. However HDL is 49 Already on Atorvastatin 20 mg po Daily PLAN: AHA diet once po with regular meal Additional Abnormal CT scan Findings Left renal cysts Nonobstructing nephrolithiasis on left kidney Subcentimeter right/left renal hypodense lesions(s) too small to characterize Atherosclerotic calcification of the abdominal aorta and iliac arteries Small fat containing umbilical hernia Chronic: Fibromyalgia, HTN, DM2, Constipation, Depression, GERD, Vincent's Esophagus, Small Hiatal Hernia, Chronic Abdominal Pain, and Obesity Plan: Continue current treatment. Soft diet. Resume some home meds once verified. Discontinue IVF once current fluid is done. Fall precautions. GI prophylaxis. DVT/Stroke prophylaxis as above. PT/OT consult. Code status is full.
[2019-05-29] MEDS: Insulin Lispro 100 Units/ML 3 ML Vial SUBCUT SCH ×3 (07:52→18:13)
[2019-05-29] MEDS: Metoprolol Tartrate 25 MG Tab PO SCH (08:31)
[2019-05-29] MEDS: Acetaminophen 325 MG Tab PO PRN ×3 (08:35→20:04)
[2019-05-29] MEDS ORDERED: Albuterol 6.7 GM Inhaler INH PRN (08:59)
[2019-05-29] MEDS ORDERED: Baclofen 10 MG Tab PO PRN (08:59)
[2019-05-29] MEDS ORDERED: LORazepam 0.5 MG Tab PO SCH (09:00)
[2019-05-29] MEDS ORDERED: Metoprolol Succinate 50 MG Tab.ER PO SCH (09:00)
[2019-05-29] MEDS ORDERED: amLODIPine 5 MG Tab PO SCH (09:00)
[2019-05-29] MEDS ORDERED: Enoxaparin 100 MG/1 ML Syringe SUBCUT SCH (09:15)
[2019-05-29] MEDS: Enoxaparin 100 MG/1 ML Syringe SUBCUT SCH ×2 (10:17→20:05)
[2019-05-29] MEDS ORDERED: Warfarin 5 MG Tab PO SCH ×2 (18:00)
[2019-05-29] MEDS: Zolpidem 5 MG Tab PO SCH (20:05)
[2019-05-29] MEDS ORDERED: Zolpidem 10 MG Tab PO SCH (21:00)
[2019-05-29] MEDS: Temazepam 7.5 MG Cap PO PRN (23:20)
[2019-05-30] MEDS: LORazepam 0.5 MG Tab PO PRN ×2 (02:00→20:45)
[2019-05-30] MEDS: Insulin Lispro 100 Units/ML 3 ML Vial SUBCUT SCH ×5 (02:02→22:25)
--- NOTE | 2019-05-30 07:04 | PCM.PN ---
- General Info Date of Service: 05/30/19 Admission Dx/Problem (Free Text): Abdominal Pain with New onset of Afib Subjective Update: Follow Up Functional Status: Reports: Pain Controlled, Tolerating Diet, Ambulating, Urinating - Review of Systems General: Reports: Appetite (hungry). Denies: Fever, Weakness, Fatigue, Malaise , Chills HEENT: Reports: No Symptoms Pulmonary: Denies: Shortness of Breath Cardiovascular: Denies: Chest Pain, Palpitations, Dyspnea on Exertion, Lightheadedness Gastrointestinal: Denies: Abdominal Pain, Decreased Appetite, Diarrhea, Hematochezia, Melena, Nausea, Vomiting Genitourinary: Reports: No Symptoms Musculoskeletal: Reports: Neck Pain, Back Pain, Leg Pain, Joint Pain Skin: Denies: Cyanosis, Rash Neurological: Denies: Confusion, Syncope, Trouble Speaking, Weakness Psychiatric: Denies: Anxiety, Agitation, Hallucinations Systems Review Comment:: No overnight or acute issues. Morning labs and vitals were unremarkable. - Patient Data Vitals - Most Recent: Last Vital Signs Temp 36.4 C 05/29/19 23:23 Pulse 89 05/29/19 23:23 Resp 18 05/29/19 23:23 BP 131/89 05/29/19 23:23 Pulse Ox 97 05/29/19 23:23 Weight - Most Recent: 88.995 kg I&O - Last 24 Hours: Intake & Output 05/29/19 05/30/19 05/30/19 22:59 06:59 14:59 Intake Total 1525 960 Output Total 1853 1050 Balance -328 -90 Lab Results Last 24 Hours: Laboratory Results - last 24 hr 05/29/19 05/29/19 05/29/19 Range/Units 05:52 05:52 05:52 WBC (3.98-10.04) K/mm3 RBC (3.98-5.22) M/mm3 Hgb (11.2-15.7) gm/dl Hct (34.1-44.9) % MCV (79.4-94.8) fl MCH (25.6-32.2) pg MCHC (32.2-35.5) g/dl RDW Std Deviation (36.4-46.3) fL Plt Count (182-369) K/mm3 MPV (9.4-12.3) fl Neut % (Auto) (34.0-71.1) % Lymph % (Auto) (19.3-51.7) % [place] % (Auto) (4.7-12.5) % Eos % (Auto) (0.7-5.8) Baso % (Auto) (0.1-1.2) % Neut # (Auto) (1.56-6.13) K/mm3 Lymph # (Auto) (1.18-3.74) K/mm3 [place] # (Auto) (0.24-0.36) K/mm3 Eos # (Auto) (0.04-0.36) K/mm3 Baso # (Auto) (0.01-0.08) K/mm3 PT 10.9 (9.7-12.0) SECONDS INR 1.00 Sodium 142 (136-145) mEq/L Potassium 3.6 (3.5-5.1) mEq/L Chloride 107 (98-107) mEq/L Carbon Dioxide 25 (21-32) mEq/L Anion Gap 13.6 (5-15) BUN 12 (7-18) mg/dL Creatinine 0.6 (0.55-1.02) mg/dL Est Cr Clr Drug Dosing 84.84 mL/min Estimated GFR (MDRD) > 60 (>60) mL/min BUN/Creatinine Ratio 20.0 H (14-18) Glucose 105 (80-115) mg/dL POC Glucose (80-115) mg/dL Calcium 9.0 (8.5-10.1) mg/dL Magnesium 2.0 (1.8-2.4) mg/dl Total Bilirubin 0.3 (0.2-1.0) mg/dL AST 16 (15-37) U/L ALT 27 (14-59) U/L Alkaline Phosphatase 105 (46-116) U/L CK-MB (CK-2) 1.2 (0-3.6) ng/ml Troponin I < 0.017 (0.00-0.056) ng/mL Total Protein 6.5 (6.4-8.2) g/dl Albumin 3.4 (3.4-5.0) g/dl Globulin 3.1 gm/dL Albumin/Globulin Ratio 1.1 (1-2) C.difficile 027-NAP1-B1 C. difficile Tox (PCR) H. pylori IgG Antibody (NEGATIVE) 05/29/19 05/29/19 05/29/19 Range/Units 05:52 07:04 11:49 WBC (3.98-10.04) K/mm3 RBC (3.98-5.22) M/mm3 Hgb (11.2-15.7) gm/dl Hct (34.1-44.9) % MCV (79.4-94.8) fl MCH (25.6-32.2) pg MCHC (32.2-35.5) g/dl RDW Std Deviation (36.4-46.3) fL Plt Count (182-369) K/mm3 MPV (9.4-12.3) fl Neut % (Auto) (34.0-71.1) % Lymph % (Auto) (19.3-51.7) % [place] % (Auto) (4.7-12.5) % Eos % (Auto) (0.7-5.8) Baso % (Auto) (0.1-1.2) % Neut # (Auto) (1.56-6.13) K/mm3 Lymph # (Auto) (1.18-3.74) K/mm3 [place] # (Auto) (0.24-0.36) K/mm3 Eos # (Auto) (0.04-0.36) K/mm3 Baso # (Auto) (0.01-0.08) K/mm3 PT (9.7-12.0) SECONDS INR Sodium (136-145) mEq/L Potassium (3.5-5.1) mEq/L Chloride (98-107) mEq/L Carbon Dioxide (21-32) mEq/L Anion Gap (5-15) BUN (7-18) mg/dL Creatinine (0.55-1.02) mg/dL Est Cr Clr Drug Dosing mL/min Estimated GFR (MDRD) (>60) mL/min BUN/Creatinine Ratio (14-18) Glucose (80-115) mg/dL POC Glucose 131 H 116 H (80-115) mg/dL Calcium (8.5-10.1) mg/dL Magnesium (1.8-2.4) mg/dl Total Bilirubin (0.2-1.0) mg/dL AST (15-37) U/L ALT (14-59) U/L Alkaline Phosphatase (46-116) U/L CK-MB (CK-2) (0-3.6) ng/ml Troponin I (0.00-0.056) ng/mL Total Protein (6.4-8.2) g/dl Albumin (3.4-5.0) g/dl Globulin gm/dL Albumin/Globulin Ratio (1-2) C.difficile 027-NAP1-B1 C. difficile Tox (PCR) H. pylori IgG Antibody Negative (NEGATIVE) 05/29/19 05/29/19 05/29/19 Range/Units 13:45 17:40 20:08 WBC (3.98-10.04) K/mm3 RBC (3.98-5.22) M/mm3 Hgb (11.2-15.7) gm/dl Hct (34.1-44.9) % MCV (79.4-94.8) fl MCH (25.6-32.2) pg MCHC (32.2-35.5) g/dl RDW Std Deviation (36.4-46.3) fL Plt Count (182-369) K/mm3 MPV (9.4-12.3) fl Neut % (Auto) (34.0-71.1) % Lymph % (Auto) (19.3-51.7) % [place] % (Auto) (4.7-12.5) % Eos % (Auto) (0.7-5.8) Baso % (Auto) (0.1-1.2) % Neut # (Auto) (1.56-6.13) K/mm3 Lymph # (Auto) (1.18-3.74) K/mm3 [place] # (Auto) (0.24-0.36) K/mm3 Eos # (Auto) (0.04-0.36) K/mm3 Baso # (Auto) (0.01-0.08) K/mm3 PT (9.7-12.0) SECONDS INR Sodium (136-145) mEq/L Potassium (3.5-5.1) mEq/L Chloride (98-107) mEq/L Carbon Dioxide (21-32) mEq/L Anion Gap (5-15) BUN (7-18) mg/dL Creatinine (0.55-1.02) mg/dL Est Cr Clr Drug Dosing mL/min Estimated GFR (MDRD) (>60) mL/min BUN/Creatinine Ratio (14-18) Glucose (80-115) mg/dL POC Glucose 99 117 H (80-115) mg/dL Calcium (8.5-10.1) mg/dL Magnesium (1.8-2.4) mg/dl Total Bilirubin (0.2-1.0) mg/dL AST (15-37) U/L ALT (14-59) U/L Alkaline Phosphatase (46-116) U/L CK-MB (CK-2) (0-3.6) ng/ml Troponin I (0.00-0.056) ng/mL Total Protein (6.4-8.2) g/dl Albumin (3.4-5.0) g/dl Globulin gm/dL Albumin/Globulin Ratio (1-2) C.difficile 027-NAP1-B1 Presumptive negative C. difficile Tox (PCR) Negative H. pylori IgG Antibody (NEGATIVE) 05/30/19 05/30/19 05/30/19 Range/Units 05:12 05:12 05:12 WBC 6.85 (3.98-10.04) K/mm3 RBC 4.19 (3.98-5.22) M/mm3 Hgb 13.2 (11.2-15.7) gm/dl Hct 41.0 (34.1-44.9) % MCV 97.9 H (79.4-94.8) fl MCH 31.5 (25.6-32.2) pg MCHC 32.2 (32.2-35.5) g/dl RDW Std Deviation 45.9 (36.4-46.3) fL Plt Count 202 (182-369) K/mm3 MPV 10.5 (9.4-12.3) fl Neut % (Auto) 49.8 (34.0-71.1) % Lymph % (Auto) 38.0 (19.3-51.7) % [place] % (Auto) 9.2 (4.7-12.5) % Eos % (Auto) 2.3 (0.7-5.8) Baso % (Auto) 0.4 (0.1-1.2) % Neut # (Auto) 3.41 (1.56-6.13) K/mm3 Lymph # (Auto) 2.60 (1.18-3.74) K/mm3 [place] # (Auto) 0.63 H (0.24-0.36) K/mm3 Eos # (Auto) 0.16 (0.04-0.36) K/mm3 Baso # (Auto) 0.03 (0.01-0.08) K/mm3 PT 11.0 (9.7-12.0) SECONDS INR 1.01 Sodium 142 (136-145) mEq/L Potassium 4.0 (3.5-5.1) mEq/L Chloride 105 (98-107) mEq/L Carbon Dioxide 24 (21-32) mEq/L Anion Gap 17.0 H (5-15) BUN 17 (7-18) mg/dL Creatinine 0.9 (0.55-1.02) mg/dL Est Cr Clr Drug Dosing 56.56 mL/min Estimated GFR (MDRD) > 60 (>60) mL/min BUN/Creatinine Ratio 18.9 H (14-18) Glucose 99 (80-115) mg/dL POC Glucose (80-115) mg/dL Calcium 9.6 (8.5-10.1) mg/dL Magnesium 2.0 (1.8-2.4) mg/dl Total Bilirubin 0.3 (0.2-1.0) mg/dL AST 19 (15-37) U/L ALT 31 (14-59) U/L Alkaline Phosphatase 112 (46-116) U/L CK-MB (CK-2) (0-3.6) ng/ml Troponin I (0.00-0.056) ng/mL Total Protein 7.1 (6.4-8.2) g/dl Albumin 3.7 (3.4-5.0) g/dl Globulin 3.4 gm/dL Albumin/Globulin Ratio 1.1 (1-2) C.difficile 027-NAP1-B1 C. difficile Tox (PCR) H. pylori IgG Antibody (NEGATIVE) Med Orders - Current: Current Medications Acetaminophen (Tylenol) 650 mg PO Q4H PRN PRN Reason: Pain (Mild 1-3)/fever Last Admin: 05/29/19 20:04 Dose: 650 mg Acetaminophen (Tylenol) 650 mg RECTAL Q4H PRN PRN Reason: Pain (mild 1-3) Acetaminophen (Tylenol) 975 mg PO BID PRN PRN Reason: Pain Albuterol (Proventil Hfa) 1 - 2 gm INH Q4H PRN PRN Reason: Dyspnea Albuterol/Ipratropium (Duoneb 3.0-0.5 Mg/3 Ml) 3 ml NEB Q4H PRN PRN Reason: Shortness Of Breath/wheezing Amlodipine Besylate (Norvasc) 5 mg PO DAILY [facility] Aspirin (Halfprin) 81 mg PO DAILY [facility] Baclofen (Lioresal) 10 - 20 mg PO TID PRN PRN Reason: Muscle Spasm Last Admin: 05/29/19 10:10 Dose: 10 mg Bisacodyl (Dulcolax) 5 mg PO DAILY PRN PRN Reason: Constipation Dextrose/Water (Dextrose 50% In Water) 50 ml IVPUSH ASDIRECTED PRN PRN Reason: Hypoglycemia Enoxaparin Sodium (Lovenox) 90 mg SUBCUT Q12H [facility] Last Admin: 05/29/19 20:05 Dose: 90 mg Promethazine HCl 12.5 mg/ (Sodium Chloride) 50.5 mls @ 100 mls/hr IV Q6H PRN PRN Reason: Nausea/Vomiting Insulin Human Lispro (Humalog) 0 unit SUBCUT QIDACANDBED [facility]; Protocol Last Admin: 05/30/19 02:02 Dose: Not Given Lorazepam (Ativan) 1 mg PO BID PRN PRN Reason: Anxiety Last Admin: 05/30/19 02:00 Dose: 1 mg Metoprolol Succinate (Toprol Xl) 50 mg PO DAILY [facility] Metoprolol Tartrate (Lopressor) 5 mg IVPUSH Q4H PRN PRN Reason: Tachycardia Miscellaneous Information (Remove Patch) 1 ea TRDERM Q72H [facility] Last Admin: 05/28/19 22:14 Dose: Not Given Ondansetron HCl (Zofran) 4 mg IV Q6H PRN PRN Reason: Nausea/Vomiting Polyethylene Glycol (Miralax) 17 gm PO DAILY PRN PRN Reason: Constipation Senna/Docusate Sodium (Senna Plus) 1 tab PO BID PRN PRN Reason: Constipation Temazepam (Restoril) 7.5 mg PO BEDTIME PRN PRN Reason: Sleep Last Admin: 05/29/19 23:20 Dose: 7.5 mg Warfarin Sodium (Pharmacy To Dose - Warfarin) 1 dose .XX ASDIRECTED PRN PRN Reason: RX TO DOSE WARFARIN Zolpidem Tartrate (Ambien) 5 mg PO BEDTIME [facility] Last Admin: 05/29/19 20:05 Dose: 5 mg Discontinued Medications Amlodipine Besylate (Norvasc) 5 mg PO BID [facility] Last Admin: 05/29/19 10:15 Dose: 5 mg Diatrizoate Meglum/Diatrizoate Sod (Gastrografin 37%) 60 ml PO ONETIME ONE Stop: 05/28/19 20:49 Last Admin: 05/28/19 21:45 Dose: 60 ml Enoxaparin Sodium (Lovenox) 100 mg SUBCUT Q12H [facility] Heparin Sodium (Porcine) (Heparin Sodium) 5,000 units SUBCUT Q8H [facility] Last Admin: 05/29/19 02:59 Dose: 5,000 units Lactated Ringer's (Ringers, Lactated) 1,000 mls @ 50 mls/hr IV ASDIRECTED CYNDY Stop: 05/29/19 14:14 Last Admin: 05/28/19 22:14 Dose: 50 mls/hr Sodium Chloride (Normal Saline) 500 mls @ 999 mls/hr IV .BOLUS ONE Stop: 05/28/19 18:40 Last Admin: 05/28/19 22:14 Dose: 999 mls/hr Iopamidol (Isovue-300 (61%)) 100 ml IVPUSH ONETIME ONE Stop: 05/28/19 20:49 Last Admin: 05/28/19 21:45 Dose: 100 ml Ketorolac Tromethamine (Toradol) 15 mg IV Q6H PRN PRN Reason: Pain (moderate 4-6) Last Admin: 05/29/19 08:48 Dose: 15 mg Lorazepam (Ativan) 0.5 mg PO BID [facility] Last Admin: 05/29/19 10:11 Dose: 0.5 mg Metoprolol Succinate (Toprol Xl) 50 mg PO DAILY [facility] Last Admin: 05/29/19 10:15 Dose: 50 mg Metoprolol Succinate (Toprol Xl) 100 mg PO DAILY [facility] Metoprolol Tartrate (Lopressor) 12.5 mg PO BID [facility] Last Admin: 05/29/19 08:31 Dose: 12.5 mg Scopolamine (Transderm-Scop) 1.5 mg TRDERM Q72H ONE Stop: 05/28/19 19:38 Last Admin: 05/28/19 21:06 Dose: 1.5 mg Warfarin Sodium (Coumadin) 5 mg PO DAILY@1800 [facility] Warfarin Sodium (Coumadin) 5 mg PO DAILY@1800 [facility] Stop: 05/29/19 18:01 Last Admin: 05/29/19 18:14 Dose: 5 mg Zolpidem Tartrate (Ambien) 10 mg PO BEDTIME [facility] - Exam General: Alert, Oriented, Cooperative, No Acute Distress HEENT: Pupils Equal, Pupils Reactive, EOMI, Mucous Membr. Moist/[place] Neck: Supple Lungs: Clear to Auscultation, Normal Respiratory Effort Cardiovascular: Regular Rate, Regular Rhythm GI/Abdominal Exam: Normal Bowel Sounds, Soft, Non-Tender, No Organomegaly, No Distention, No Abnormal Bruit, No Mass (Female) Exam: Deferred Back Exam: Normal Inspection, Decreased Range of Motion Extremities: Normal Inspection, Normal Range of Motion, Non-Tender, No Pedal Edema, Normal Capillary Refill Peripheral Pulses: 2+: Dorsalis Pedis (L), Dorsalis Pedis (R) Skin: Warm, Dry, Intact Neurological: No New Focal Deficit, Normal Gait Psy/Mental Status: Alert, Normal Affect, Normal Mood Sepsis Event Note - Evaluation Sepsis Screening Result: No Definite Risk - Focused Exam Vital Signs: Vital Signs Temp Pulse Resp BP Pulse Ox 05/29/19 23:23 36.4 C 89 18 131/89 97 05/29/19 20:14 36.6 C 93 22 H 107/69 94 L Date Exam was Performed: 05/30/19 Time Exam was Performed: 18:44 - Problem List Review Problem List Initiated/Reviewed/Updated: Yes - My Orders Last 24 Hours: My Active Orders 05/29/19 07:00 EKG 12 Lead [EK] Routine 05/29/19 08:59 Albuterol [Proventil HFA] 1 - 2 gm INH Q4H PRN Baclofen [Lioresal] 10 - 20 mg PO TID PRN 05/29/19 09:00 Enoxaparin [Lovenox] 90 mg SUBCUT Q12H Pharmacy to Dose - Warfarin 1 dose .XX ASDIRECTED PRN 05/29/19 19:26 Acetaminophen [Tylenol] 975 mg PO BID PRN 05/29/19 19:30 LORazepam [Ativan] 1 mg PO BID PRN 05/29/19 21:00 Zolpidem [Ambien] 5 mg PO BEDTIME 05/30/19 09:00 Aspirin [Halfprin] 81 mg PO DAILY Metoprolol Succinate [Toprol XL] 50 mg PO DAILY amLODIPine [Norvasc] 5 mg PO DAILY 05/30/19 Breakfast ADA Diabetic [[employer] Diet] [DIET] 05/31/19 05:11 CBC WITH AUTO DIFF [HEME] AM 05/31/19 05:15 COMPREHENSIVE METABOLIC PN,CMP [CHEM] DAILY MG [MAGNESIUM] [CHEM] DAILY 06/01/19 05:11 CBC WITH AUTO DIFF [HEME] AM 06/01/19 05:15 COMPREHENSIVE METABOLIC PN,CMP [CHEM] DAILY MG [MAGNESIUM] [CHEM] DAILY - Plan Plan:: Acute: Atrial Fibrillation, HR controlled New onset Was found with irregular heart rate at the clinic with a HR of 106 on EKG ALFRED VASC score of 4; carries moderate high risk w/o anticoagulation PLAN: Thyroid panel 2D echo Friday-no services on Rate control agent- Metoprolol Succinate 50 mg po Daily Warfarin and Heparin for stroke prophylaxis with INR goal of bet 2-3 Gastroenteritis Risk factors: GERD, Vincent's Esophagus, Long standing DM2, and Hiatal Hernia No GB but still has appendix No other GI surgery except for hysterectomy No specific triggers Tolerated liquid diet last night No nausea or vomiting PLAN: Abdominal/Pelvis CT scan with oral and IV contrast confirms it Soft diet and advance as tolerated C. Diff screening Hyperglycemia with DM2, Improved BS of 144 from the clinic-->now 116 Last A1C 6 taken on today shows A1C of 6.0 PLAN: Accu-check Q6H with low dose ISS Dyslipidemia Lipid Panel at the clinic shows elevated Trig level of 201 nd LDL of 107. However HDL is 49 Already on Atorvastatin 20 mg po Daily PLAN: AHA diet once po with regular meal Subtherapeutic INR INR is 1.0 Continue Lovenox 90 units SubQ BID Warfarin for pharmacy to dose Resolved: Lightheadedness and Dizziness, Resolved Carries a hx/o dizziness felt to be associated with abdominal discomfort Gets symptomatic with abrupt change in position or when she gets up quickly However she was just diagnosed with new onset of atrial fibrillation She has no focal neurological deficits PLAN: Fall Precautions and PT/OT eval UA negative Chest Pain r/o ACS, Resolved R/o Angina Equivalent Risk Factors: HTN, HLD, DM2, and Atherosclerosis (diagnosed on previous abdominal CT scan taken in 2016) Heaviness today on presentation to her PCP for routine follow up appointment Serial troponin x 3 all negative No more chest pain PLAN: Had stress test back in December with benign work up Outpatient follow up with cardiology in [place] after discharge Additional Abnormal CT scan Findings Left renal cysts Nonobstructing nephrolithiasis on left kidney Subcentimeter right/left renal hypodense lesions(s) too small to characterize Atherosclerotic calcification of the abdominal aorta and iliac arteries Small fat containing umbilical hernia Chronic: Fibromyalgia, HTN, DM2, Constipation, Depression, GERD, Vincent's Esophagus, Small Hiatal Hernia, Chronic Abdominal Pain, and Obesity Plan: Continue current treatment. Regular diet. Fall precautions. GI prophylaxis. DVT/Stroke prophylaxis as above. PT/OT consult. Dietary consult for weight management. Encourage to ambulate as tolerated. Code status is full.
--- NOTE | 2019-05-30 07:23 | CT ---
CT abdomen and pelvis Technique: Multiple axial sections were obtained from above the dome of the diaphragm inferiorly through the pubic symphysis. Intravenous and oral contrast was given. Delayed images were also obtained. Comparison: Previous CT abdomen and pelvis study of 03/13/17. Findings: Visualized lung bases show slight atelectasis within the right middle lobe. Nothing acute is otherwise appreciated within the lung bases. Liver contains no focal abnormality. Spleen appears within normal limits. Small hiatal hernia is noted. Adrenal glands show no nodule. Cysts are noted within the left kidney. Small abnormality is noted more inferiorly within the left kidney measuring 6 mm. This is too small to measure by Hounsfield unit measurements but given the other appearance of cysts within the left kidney this likely is of similar etiology. Small abnormality is also noted within the mid right kidney which does have Hounsfield unit measurements of a cyst and measures 1.1 cm. Delayed images show contrast within both ureters and bladder without evidence of ureteral obstruction. Small nonobstructing stone is noted within the inferior left kidney measuring 5 mm. Pancreas is within normal limits. Aorta shows atherosclerotic calcification without aneurysm. Atherosclerotic change continues into the iliac vessels. No retroperitoneal adenopathy or mesenteric abnormalities are seen. Appendix is not visualized with certainty. No pelvic mass or adenopathy is seen. No free fluid or inflammatory change is identified. Prior hysterectomy is noted. Small fat-containing umbilical hernia is noted. Diffuse disc space narrowing is noted within the visualized spine with multiple levels of vacuum phenomena and endplate spurring. Impression: 1. Findings as noted above. 2. Nothing acute is appreciated on CT study of the abdomen and pelvis. Diagnostic code #2 This report was dictated in [place] Standard Time I agree with preliminary report from [facility], finalized on 05/28/19, 11:43 PM Central Time
[2019-05-30] MEDS: Aspirin 81 MG Tab.EC PO SCH (08:51)
[2019-05-30] MEDS: amLODIPine 5 MG Tab PO SCH (08:52)
[2019-05-30] MEDS: Metoprolol Succinate 50 MG Tab.ER PO SCH (08:52)
[2019-05-30] MEDS: Enoxaparin 100 MG/1 ML Syringe SUBCUT SCH ×2 (08:53→20:50)
[2019-05-30] MEDS ORDERED: Metoprolol Succinate 50 MG Tab.ER PO SCH (09:00)
[2019-05-30] MEDS: Acetaminophen 325 MG Tab PO PRN (14:23)
[2019-05-30] MEDS ORDERED: Warfarin 5 MG Tab PO SCH (18:00)
[2019-05-30] MEDS ORDERED: Warfarin 7.5 MG Tab PO ONE (18:45)
[2019-05-30] MEDS: Zolpidem 5 MG Tab PO SCH (20:45)
[2019-05-31] MEDS ORDERED: Aluminum Hydroxide/Magnesium Hydroxide/Simethicone Susp 30 ML Cup PO ONE (02:19)
[2019-05-31] MEDS: LORazepam 0.5 MG Tab PO PRN ×2 (03:28→21:08)
[2019-05-31] MEDS: Acetaminophen 325 MG Tab PO PRN ×2 (06:37→17:04)
[2019-05-31] MEDS: Aspirin 81 MG Tab.EC PO SCH (10:01)
[2019-05-31] MEDS: Metoprolol Succinate 50 MG Tab.ER PO SCH (10:02)
[2019-05-31] MEDS: amLODIPine 5 MG Tab PO SCH (10:02)
[2019-05-31] MEDS: Enoxaparin 100 MG/1 ML Syringe SUBCUT SCH ×2 (10:03→21:08)
--- NOTE | 2019-05-31 12:39 | PCM.PN ---
- General Info Date of Service: 05/31/19 Admission Dx/Problem (Free Text): Abdominal Pain with New onset of Afib Subjective Update: Follow Up Functional Status: Reports: Pain Controlled, Tolerating Diet, Ambulating, Urinating - Review of Systems General: Denies: Fever, Weakness, Fatigue, Malaise, Chills HEENT: Reports: No Symptoms Pulmonary: Reports: No Symptoms. Denies: Shortness of Breath Cardiovascular: Denies: Chest Pain, Dyspnea on Exertion, Lightheadedness Gastrointestinal: Denies: Abdominal Pain, Nausea, Vomiting Genitourinary: Reports: No Symptoms Musculoskeletal: Reports: No Symptoms Skin: Reports: No Symptoms Neurological: Denies: Tingling, Trouble Speaking, Weakness Psychiatric: Reports: Anxiety, Other (Insomnia) Systems Review Comment:: Patient slept from 10-2 AM. After that she had trouble getting back to sleep. She was apparently got caught smoking in the bathroom and since then she was upset and irate. Night nurse warned me that she might take it out on me which she did during my morning rounds with her. She reports no acute issues but complains about not being able to rest/sleep well. She had a small stool early this morning. - Patient Data Vitals - Most Recent: Last Vital Signs Temp 36.6 C 05/31/19 11:39 Pulse 107 H 05/31/19 11:39 Resp 17 05/31/19 11:39 BP 97/80 05/31/19 11:39 Pulse Ox 94 L 05/31/19 11:39 Weight - Most Recent: 88.405 kg I&O - Last 24 Hours: Intake & Output 05/30/19 05/31/19 05/31/19 22:59 06:59 14:59 Intake Total 600 1600 Output Total 1300 2300 Balance -700 -700 Lab Results Last 24 Hours: Laboratory Results - last 24 hr 05/30/19 05/30/19 05/30/19 Range/Units 12:11 16:27 20:40 WBC (3.98-10.04) K/mm3 RBC (3.98-5.22) M/mm3 Hgb (11.2-15.7) gm/dl Hct (34.1-44.9) % MCV (79.4-94.8) fl MCH (25.6-32.2) pg MCHC (32.2-35.5) g/dl RDW Std Deviation (36.4-46.3) fL Plt Count (182-369) K/mm3 MPV (9.4-12.3) fl Neut % (Auto) (34.0-71.1) % Lymph % (Auto) (19.3-51.7) % [place] % (Auto) (4.7-12.5) % Eos % (Auto) (0.7-5.8) Baso % (Auto) (0.1-1.2) % Neut # (Auto) (1.56-6.13) K/mm3 Lymph # (Auto) (1.18-3.74) K/mm3 [place] # (Auto) (0.24-0.36) K/mm3 Eos # (Auto) (0.04-0.36) K/mm3 Baso # (Auto) (0.01-0.08) K/mm3 PT (9.7-12.0) SECONDS INR Sodium (136-145) mEq/L Potassium (3.5-5.1) mEq/L Chloride (98-107) mEq/L Carbon Dioxide (21-32) mEq/L Anion Gap (5-15) BUN (7-18) mg/dL Creatinine (0.55-1.02) mg/dL Est Cr Clr Drug Dosing mL/min Estimated GFR (MDRD) (>60) mL/min BUN/Creatinine Ratio (14-18) Glucose (80-115) mg/dL POC Glucose 94 145 H 125 H (80-115) mg/dL Calcium (8.5-10.1) mg/dL Magnesium (1.8-2.4) mg/dl Total Bilirubin (0.2-1.0) mg/dL AST (15-37) U/L ALT (14-59) U/L Alkaline Phosphatase (46-116) U/L Total Protein (6.4-8.2) g/dl Albumin (3.4-5.0) g/dl Globulin gm/dL Albumin/Globulin Ratio (1-2) 05/31/19 05/31/19 05/31/19 Range/Units 05:13 05:13 05:13 WBC 7.53 (3.98-10.04) K/mm3 RBC 4.36 (3.98-5.22) M/mm3 Hgb 13.7 (11.2-15.7) gm/dl Hct 42.6 (34.1-44.9) % MCV 97.7 H (79.4-94.8) fl MCH 31.4 (25.6-32.2) pg MCHC 32.2 (32.2-35.5) g/dl RDW Std Deviation 46.2 (36.4-46.3) fL Plt Count 231 (182-369) K/mm3 MPV 10.5 (9.4-12.3) fl Neut % (Auto) 56.4 (34.0-71.1) % Lymph % (Auto) 30.8 (19.3-51.7) % [place] % (Auto) 10.4 (4.7-12.5) % Eos % (Auto) 1.7 (0.7-5.8) Baso % (Auto) 0.4 (0.1-1.2) % Neut # (Auto) 4.25 (1.56-6.13) K/mm3 Lymph # (Auto) 2.32 (1.18-3.74) K/mm3 [place] # (Auto) 0.78 H (0.24-0.36) K/mm3 Eos # (Auto) 0.13 (0.04-0.36) K/mm3 Baso # (Auto) 0.03 (0.01-0.08) K/mm3 PT 11.9 (9.7-12.0) SECONDS INR 1.10 Sodium 143 (136-145) mEq/L Potassium 3.7 (3.5-5.1) mEq/L Chloride 106 (98-107) mEq/L Carbon Dioxide 24 (21-32) mEq/L Anion Gap 16.7 H (5-15) BUN 19 H (7-18) mg/dL Creatinine 0.9 (0.55-1.02) mg/dL Est Cr Clr Drug Dosing 56.56 mL/min Estimated GFR (MDRD) > 60 (>60) mL/min BUN/Creatinine Ratio 21.1 H (14-18) Glucose 107 (80-115) mg/dL POC Glucose (80-115) mg/dL Calcium 9.7 (8.5-10.1) mg/dL Magnesium 2.2 (1.8-2.4) mg/dl Total Bilirubin 0.2 (0.2-1.0) mg/dL AST 16 (15-37) U/L ALT 28 (14-59) U/L Alkaline Phosphatase 115 (46-116) U/L Total Protein 7.4 (6.4-8.2) g/dl Albumin 3.9 (3.4-5.0) g/dl Globulin 3.5 gm/dL Albumin/Globulin Ratio 1.1 (1-2) 05/31/19 Range/Units 06:32 WBC (3.98-10.04) K/mm3 RBC (3.98-5.22) M/mm3 Hgb (11.2-15.7) gm/dl Hct (34.1-44.9) % MCV (79.4-94.8) fl MCH (25.6-32.2) pg MCHC (32.2-35.5) g/dl RDW Std Deviation (36.4-46.3) fL Plt Count (182-369) K/mm3 MPV (9.4-12.3) fl Neut % (Auto) (34.0-71.1) % Lymph % (Auto) (19.3-51.7) % [place] % (Auto) (4.7-12.5) % Eos % (Auto) (0.7-5.8) Baso % (Auto) (0.1-1.2) % Neut # (Auto) (1.56-6.13) K/mm3 Lymph # (Auto) (1.18-3.74) K/mm3 [place] # (Auto) (0.24-0.36) K/mm3 Eos # (Auto) (0.04-0.36) K/mm3 Baso # (Auto) (0.01-0.08) K/mm3 PT (9.7-12.0) SECONDS INR Sodium (136-145) mEq/L Potassium (3.5-5.1) mEq/L Chloride (98-107) mEq/L Carbon Dioxide (21-32) mEq/L Anion Gap (5-15) BUN (7-18) mg/dL Creatinine (0.55-1.02) mg/dL Est Cr Clr Drug Dosing mL/min Estimated GFR (MDRD) (>60) mL/min BUN/Creatinine Ratio (14-18) Glucose (80-115) mg/dL POC Glucose 157 H (80-115) mg/dL Calcium (8.5-10.1) mg/dL Magnesium (1.8-2.4) mg/dl Total Bilirubin (0.2-1.0) mg/dL AST (15-37) U/L ALT (14-59) U/L Alkaline Phosphatase (46-116) U/L Total Protein (6.4-8.2) g/dl Albumin (3.4-5.0) g/dl Globulin gm/dL Albumin/Globulin Ratio (1-2) Med Orders - Current: Current Medications Acetaminophen (Tylenol) 650 mg PO Q4H PRN PRN Reason: Pain (Mild 1-3)/fever Last Admin: 05/31/19 06:37 Dose: 650 mg Acetaminophen (Tylenol) 650 mg RECTAL Q4H PRN PRN Reason: Pain (mild 1-3) Acetaminophen (Tylenol) 975 mg PO BID PRN PRN Reason: Pain Last Admin: 05/30/19 14:23 Dose: 975 mg Albuterol (Proventil Hfa) 1 - 2 gm INH Q4H PRN PRN Reason: Dyspnea Albuterol/Ipratropium (Duoneb 3.0-0.5 Mg/3 Ml) 3 ml NEB Q4H PRN PRN Reason: Shortness Of Breath/wheezing Amlodipine Besylate (Norvasc) 5 mg PO DAILY [facility] Last Admin: 05/31/19 10:02 Dose: 5 mg Aspirin (Halfprin) 81 mg PO DAILY [facility] Last Admin: 05/31/19 10:01 Dose: 81 mg Baclofen (Lioresal) 10 - 20 mg PO TID PRN PRN Reason: Muscle Spasm Last Admin: 05/29/19 10:10 Dose: 10 mg Bisacodyl (Dulcolax) 5 mg PO DAILY PRN PRN Reason: Constipation Dextrose/Water (Dextrose 50% In Water) 50 ml IVPUSH ASDIRECTED PRN PRN Reason: Hypoglycemia Enoxaparin Sodium (Lovenox) 90 mg SUBCUT Q12H [facility] Last Admin: 05/31/19 10:03 Dose: 90 mg Promethazine HCl 12.5 mg/ (Sodium Chloride) 50.5 mls @ 100 mls/hr IV Q6H PRN PRN Reason: Nausea/Vomiting Insulin Human Lispro (Humalog) 0 unit SUBCUT QIDACANDBED [facility]; Protocol Last Admin: 05/30/19 22:25 Dose: Not Given Lorazepam (Ativan) 1 mg PO BID PRN PRN Reason: Anxiety Last Admin: 05/31/19 03:28 Dose: 1 mg Metoprolol Succinate (Toprol Xl) 50 mg PO DAILY [facility] Last Admin: 05/31/19 10:02 Dose: 50 mg Metoprolol Tartrate (Lopressor) 5 mg IVPUSH Q4H PRN PRN Reason: Tachycardia Miscellaneous Information (Remove Patch) 1 ea TRDERM Q72H [facility] Last Admin: 05/28/19 22:14 Dose: Not Given Ondansetron HCl (Zofran) 4 mg IV Q6H PRN PRN Reason: Nausea/Vomiting Polyethylene Glycol (Miralax) 17 gm PO DAILY PRN PRN Reason: Constipation Senna/Docusate Sodium (Senna Plus) 1 tab PO BID PRN PRN Reason: Constipation Temazepam (Restoril) 7.5 mg PO BEDTIME PRN PRN Reason: Sleep Last Admin: 05/29/19 23:20 Dose: 7.5 mg Warfarin Sodium (Pharmacy To Dose - Warfarin) 1 dose .XX ASDIRECTED PRN PRN Reason: RX TO DOSE WARFARIN Warfarin Sodium (Coumadin) 5 mg PO DAILY@1800 [facility] Zolpidem Tartrate (Ambien) 5 mg PO BEDTIME [facility] Last Admin: 05/30/19 20:45 Dose: 5 mg Discontinued Medications Al Hydroxide/Mg Hydroxide (Mag-Al Plus) 30 ml PO ONETIME ONE Stop: 05/31/19 02:20 Last Admin: 05/31/19 02:35 Dose: 30 ml Amlodipine Besylate (Norvasc) 5 mg PO BID [facility] Last Admin: 05/29/19 10:15 Dose: 5 mg Diatrizoate Meglum/Diatrizoate Sod (Gastrografin 37%) 60 ml PO ONETIME ONE Stop: 05/28/19 20:49 Last Admin: 05/28/19 21:45 Dose: 60 ml Enoxaparin Sodium (Lovenox) 100 mg SUBCUT Q12H [facility] Heparin Sodium (Porcine) (Heparin Sodium) 5,000 units SUBCUT Q8H [facility] Last Admin: 05/29/19 02:59 Dose: 5,000 units Lactated Ringer's (Ringers, Lactated) 1,000 mls @ 50 mls/hr IV ASDIRECTED CYNDY Stop: 05/29/19 14:14 Last Admin: 05/28/19 22:14 Dose: 50 mls/hr Sodium Chloride (Normal Saline) 500 mls @ 999 mls/hr IV .BOLUS ONE Stop: 05/28/19 18:40 Last Admin: 05/28/19 22:14 Dose: 999 mls/hr Iopamidol (Isovue-300 (61%)) 100 ml IVPUSH ONETIME ONE Stop: 05/28/19 20:49 Last Admin: 05/28/19 21:45 Dose: 100 ml Ketorolac Tromethamine (Toradol) 15 mg IV Q6H PRN PRN Reason: Pain (moderate 4-6) Last Admin: 05/29/19 08:48 Dose: 15 mg Lorazepam (Ativan) 0.5 mg PO BID [facility] Last Admin: 05/29/19 10:11 Dose: 0.5 mg Metoprolol Succinate (Toprol Xl) 50 mg PO DAILY [facility] Last Admin: 05/29/19 10:15 Dose: 50 mg Metoprolol Succinate (Toprol Xl) 100 mg PO DAILY [facility] Metoprolol Tartrate (Lopressor) 12.5 mg PO BID [facility] Last Admin: 05/29/19 08:31 Dose: 12.5 mg Scopolamine (Transderm-Scop) 1.5 mg TRDERM Q72H ONE Stop: 05/28/19 19:38 Last Admin: 05/28/19 21:06 Dose: 1.5 mg Warfarin Sodium (Coumadin) 5 mg PO DAILY@1800 [facility] Warfarin Sodium (Coumadin) 5 mg PO DAILY@1800 [facility] Stop: 05/29/19 18:01 Last Admin: 05/29/19 18:14 Dose: 5 mg Warfarin Sodium (Coumadin) 5 mg PO QPM CYNDY Stop: 05/30/19 18:01 Last Admin: 05/30/19 17:23 Dose: 5 mg Zolpidem Tartrate (Ambien) 10 mg PO BEDTIME [facility] - Exam General: Alert, Oriented, Cooperative, No Acute Distress, Other (Hyped-up) HEENT: Pupils Equal, Pupils Reactive, EOMI, Mucous Membr. Moist/[place] Neck: Supple Lungs: Clear to Auscultation, Normal Respiratory Effort Cardiovascular: Irregular Rhythm GI/Abdominal Exam: Normal Bowel Sounds, Soft, Non-Tender, No Organomegaly, No Distention, No Abnormal Bruit (Female) Exam: Deferred Back Exam: Normal Inspection, Decreased Range of Motion Extremities: Normal Inspection, Normal Range of Motion, Non-Tender, No Pedal Edema, Normal Capillary Refill Peripheral Pulses: 2+: Dorsalis Pedis (L), Dorsalis Pedis (R) Skin: Warm, Dry, Intact Neurological: No New Focal Deficit Psy/Mental Status: Normal Affect, Anxious, Other Physical Findings Comments:: Angry/mad Sepsis Event Note - Evaluation Sepsis Screening Result: No Definite Risk - Focused Exam Vital Signs: Vital Signs Temp Pulse Resp BP Pulse Ox 05/31/19 11:39 36.6 C 107 H 17 97/80 94 L 05/31/19 10:02 93 124/72 05/31/19 08:31 36.6 C 93 16 124/72 96 05/31/19 03:21 36.6 C 89 20 132/82 94 L Date Exam was Performed: 06/01/19 Time Exam was Performed: 14:24 - Problem List Review Problem List Initiated/Reviewed/Updated: Yes - My Orders Last 24 Hours: My Active Orders 05/31/19 12:16 Consult to Physician [CONS] Urgent 05/31/19 12:18 Notify Provider Consults [RC] ASDIRECTED 05/31/19 18:00 Warfarin [Coumadin] 5 mg PO DAILY@1800 06/01/19 05:11 CBC WITH AUTO DIFF [HEME] AM 06/01/19 05:15 COMPREHENSIVE METABOLIC PN,CMP [CHEM] DAILY MG [MAGNESIUM] [CHEM] DAILY - Plan Plan:: Acute: Atrial Fibrillation, HR controlled New onset Was found with irregular heart rate at the clinic with a HR of 106 on EKG ALFRED VASC score of 4; carries moderate high risk w/o anticoagulation PLAN: Thyroid panel 2D echo today Rate control agent- Metoprolol Succinate 50 mg po Daily Warfarin and Heparin for stroke prophylaxis with INR goal of bet 2-3 Gastroenteritis, Improved Risk factors: GERD, Vincent's Esophagus, Long standing DM2, and Hiatal Hernia No GB but still has appendix No other GI surgery except for hysterectomy No specific triggers Tolerated liquid diet last night No nausea or vomiting C. Diff test negative PLAN: Abdominal/Pelvis CT scan with oral and IV contrast confirms it She is now on regular diet Hyperglycemia with DM2, Improved BS of 144 from the clinic-->now 116 Last A1C 6 taken on today shows A1C of 6.0 PLAN: Accu-check Q6H with low dose ISS Dyslipidemia Lipid Panel at the clinic shows elevated Trig level of 201 nd LDL of 107. However HDL is 49 Already on Atorvastatin 20 mg po Daily PLAN: AHA diet once po with regular meal Subtherapeutic INR INR is 1.0-->1.10 Continue Lovenox 90 units SubQ BID Warfarin for pharmacy to dose Severe Insomnia This is chronic to her and had trouble getting rest or sleeping for many years now Takes Ambien 5mg plus Baclofen and Ativan scheduled for night time States the regimen sometimes work Also thinks anxiety and racing thoughts may be contributory Denies drinking caffeinated products or coffee at night prior to bed time Has poor sleep hygiene w/o consistent bedtime hours Received Restoril and Ambien plus Baclofen and Ativan Friday Evening but the regimen did not work according to her Offered Psych to address Sleep Related Mood Disorders Sleep Related Mood Disorder (SRMD) Has not well controlled anxiety and poor sleep habits/insomnia She states I was not addressing it but untrue Had Ambien, Restoril, Ativan and Baclofen Friday night but reports not relief from it Had her usual night time dose last night but it did not work Offered Tele-psych but only agrees if her insurance covers it Resolved: Lightheadedness and Dizziness, Resolved Carries a hx/o dizziness felt to be associated with abdominal discomfort Gets symptomatic with abrupt change in position or when she gets up quickly However she was just diagnosed with new onset of atrial fibrillation She has no focal neurological deficits PLAN: Fall Precautions and PT/OT eval UA negative Chest Pain r/o ACS, Resolved R/o Angina Equivalent Risk Factors: HTN, HLD, DM2, and Atherosclerosis (diagnosed on previous abdominal CT scan taken in 2016) Heaviness today on presentation to her PCP for routine follow up appointment Serial troponin x 3 all negative No more chest pain PLAN: Had stress test back in December with benign work up Outpatient follow up with cardiology in [place] after discharge Additional Abnormal CT scan Findings Left renal cysts Nonobstructing nephrolithiasis on left kidney Subcentimeter right/left renal hypodense lesions(s) too small to characterize Atherosclerotic calcification of the abdominal aorta and iliac arteries Small fat containing umbilical hernia Chronic: Fibromyalgia, HTN, DM2, Constipation, Depression, GERD, Vincent's Esophagus, Small Hiatal Hernia, Chronic Abdominal Pain, and Obesity Plan: Continue current treatment. Regular diet. Fall precautions. GI prophylaxis. DVT/Stroke prophylaxis as above. PT/OT consult. Dietary consult for weight management. Encourage to ambulate as tolerated. Psych consult for SRMD. Code status is full.
--- NOTE | 2019-05-31 12:42 | PCM.SN ---
- Free Text/Narrative Note: Patient slept from 10-2 AM. After that she had trouble getting back to sleep. Per night nurse, she apparently smoked in the bathroom and they found cigarettes in her purse. This morning she was so irate and felt like I have not been listening to her (but untrue). She states she is not aware of her irregular heart rate and that she came to the hospital for abdominal pain. However I refuted her claim and instead re-iterated that she came here for new onset of atrial fibrillation now on medications as well abdominal pain which was due to gastroenteritis according to CT scan. Patient went on to accuse me that I was ignoring her insomnia. But again, it was not true. Patient tells me she had trouble with sleep chronically and part of that is due to her not well controlled anxiety. She states it runs in the family. A review of her medications shows she is on Ambien 5 mg po HS, Ativan 1 mg po BID and Baclofen 10-20 mg po TID PRN for muscle spasm. Patient received both Ambien and Restoril 7.5 mg po HS along with Ativan and Baclofen Friday night but still did not have a good sleep. Last night, she received her usual home pills w/o Restoril but woke up too soon and feeling not well rested. Informed patient I am uncomfortable tweaking her night time regimen and that she would benefit with sleep specialist due to sleep related mood disorders. Offered Dr. Jarvis but she would like to check if her insurance covers it and how much it would cost her. Notified CM/SW to address the billing issue. Advised nurse to notify tele-psych if patient is in agreement.
[2019-05-31] MEDS ORDERED: Warfarin 7.5 MG Tab PO SCH (18:00)
[2019-05-31] MEDS ORDERED: Warfarin 5 MG Tab PO SCH (18:00)
[2019-05-31] MEDS: Insulin Lispro 100 Units/ML 3 ML Vial SUBCUT SCH ×3 (20:54→20:57)
[2019-05-31] MEDS ORDERED: Zolpidem 10 MG Tab PO SCH (21:00)
[2019-06-01] MEDS: Insulin Lispro 100 Units/ML 3 ML Vial SUBCUT SCH ×5 (06:20→23:59)
[2019-06-01] MEDS: Acetaminophen 325 MG Tab PO PRN ×3 (06:25→20:44)
[2019-06-01] MEDS: metFORMIN 500 MG Tab PO SCH ×2 (06:26→18:07)
[2019-06-01] MEDS: Pantoprazole 40 MG Tab.CR PO SCH (06:26)
[2019-06-01] MEDS: LORazepam 0.5 MG Tab PO PRN (06:37)
--- NOTE | 2019-06-01 08:21 | PCM.PN ---
- General Info Date of Service: 06/01/19 Admission Dx/Problem (Free Text): Abdominal Pain with New onset of Afib Subjective Update: Follow Up Functional Status: Reports: Pain Controlled, Tolerating Diet, Ambulating, Urinating - Review of Systems General: Reports: Other (tired). Denies: Fever, Chills HEENT: Reports: No Symptoms Pulmonary: Denies: Shortness of Breath Cardiovascular: Denies: Chest Pain, Dyspnea on Exertion, Lightheadedness Gastrointestinal: Denies: Abdominal Pain, Diarrhea, Nausea, Vomiting Genitourinary: Reports: No Symptoms Musculoskeletal: Reports: No Symptoms Skin: Reports: No Symptoms Neurological: Denies: Numbness, Weakness, Gait Disturbance Psychiatric: Denies: Depression, Anxiety, Agitation, Hallucinations Systems Review Comment:: No significant overnight issues. She got some sleep and she states it was a lot better than usual. She states she had some stool leakage and tired of not able to control it. She request to have something to make her stool more formed. Her INR is now down to 1.43 - Patient Data Vitals - Most Recent: Last Vital Signs Temp 36.4 C 06/01/19 01:00 Pulse 87 06/01/19 01:00 Resp 20 06/01/19 01:00 BP 122/89 06/01/19 01:00 Pulse Ox 91 L 06/01/19 01:00 Weight - Most Recent: 88.587 kg I&O - Last 24 Hours: Intake & Output 05/31/19 06/01/19 06/01/19 22:59 06:59 14:59 Intake Total 1840 1520 Output Total 2250 1450 Balance -410 70 Lab Results Last 24 Hours: Laboratory Results - last 24 hr 05/31/19 05/31/19 05/31/19 Range/Units 11:28 16:29 21:23 WBC (3.98-10.04) K/mm3 RBC (3.98-5.22) M/mm3 Hgb (11.2-15.7) gm/dl Hct (34.1-44.9) % MCV (79.4-94.8) fl MCH (25.6-32.2) pg MCHC (32.2-35.5) g/dl RDW Std Deviation (36.4-46.3) fL Plt Count (182-369) K/mm3 MPV (9.4-12.3) fl Neut % (Auto) (34.0-71.1) % Lymph % (Auto) (19.3-51.7) % Bailey % (Auto) (4.7-12.5) % Eos % (Auto) (0.7-5.8) Baso % (Auto) (0.1-1.2) % Neut # (Auto) (1.56-6.13) K/mm3 Lymph # (Auto) (1.18-3.74) K/mm3 Bailey # (Auto) (0.24-0.36) K/mm3 Eos # (Auto) (0.04-0.36) K/mm3 Baso # (Auto) (0.01-0.08) K/mm3 Manual Slide Review PT (9.7-12.0) SECONDS INR Sodium (136-145) mEq/L Potassium (3.5-5.1) mEq/L Chloride (98-107) mEq/L Carbon Dioxide (21-32) mEq/L Anion Gap (5-15) BUN (7-18) mg/dL Creatinine (0.55-1.02) mg/dL Est Cr Clr Drug Dosing mL/min Estimated GFR (MDRD) (>60) mL/min BUN/Creatinine Ratio (14-18) Glucose (80-115) mg/dL POC Glucose 103 120 H 100 (80-115) mg/dL Calcium (8.5-10.1) mg/dL Magnesium (1.8-2.4) mg/dl Total Bilirubin (0.2-1.0) mg/dL AST (15-37) U/L ALT (14-59) U/L Alkaline Phosphatase (46-116) U/L Total Protein (6.4-8.2) g/dl Albumin (3.4-5.0) g/dl Globulin gm/dL Albumin/Globulin Ratio (1-2) 06/01/19 06/01/19 06/01/19 Range/Units 05:48 05:48 05:48 WBC 6.86 (3.98-10.04) K/mm3 RBC 4.25 (3.98-5.22) M/mm3 Hgb 13.4 (11.2-15.7) gm/dl Hct 42.1 (34.1-44.9) % MCV 99.1 H (79.4-94.8) fl MCH 31.5 (25.6-32.2) pg MCHC 31.8 L (32.2-35.5) g/dl RDW Std Deviation 47.0 H (36.4-46.3) fL Plt Count 205 (182-369) K/mm3 MPV 10.5 (9.4-12.3) fl Neut % (Auto) 44.5 (34.0-71.1) % Lymph % (Auto) 40.4 (19.3-51.7) % Bailey % (Auto) 11.8 (4.7-12.5) % Eos % (Auto) 2.8 (0.7-5.8) Baso % (Auto) 0.4 (0.1-1.2) % Neut # (Auto) 3.05 (1.56-6.13) K/mm3 Lymph # (Auto) 2.77 (1.18-3.74) K/mm3 Bailey # (Auto) 0.81 H (0.24-0.36) K/mm3 Eos # (Auto) 0.19 (0.04-0.36) K/mm3 Baso # (Auto) 0.03 (0.01-0.08) K/mm3 Manual Slide Review PT 15.3 H (9.7-12.0) SECONDS INR 1.43 Sodium 142 (136-145) mEq/L Potassium 4.2 (3.5-5.1) mEq/L Chloride 108 H (98-107) mEq/L Carbon Dioxide 26 (21-32) mEq/L Anion Gap 12.2 (5-15) BUN 19 H (7-18) mg/dL Creatinine 0.9 (0.55-1.02) mg/dL Est Cr Clr Drug Dosing 56.56 mL/min Estimated GFR (MDRD) > 60 (>60) mL/min BUN/Creatinine Ratio 21.1 H (14-18) Glucose 106 (80-115) mg/dL POC Glucose (80-115) mg/dL Calcium 9.1 (8.5-10.1) mg/dL Magnesium 2.2 (1.8-2.4) mg/dl Total Bilirubin 0.2 (0.2-1.0) mg/dL AST 24 (15-37) U/L ALT 33 (14-59) U/L Alkaline Phosphatase 104 (46-116) U/L Total Protein 6.7 (6.4-8.2) g/dl Albumin 3.5 (3.4-5.0) g/dl Globulin 3.2 gm/dL Albumin/Globulin Ratio 1.1 (1-2) 06/01/19 Range/Units 06:36 WBC (3.98-10.04) K/mm3 RBC (3.98-5.22) M/mm3 Hgb (11.2-15.7) gm/dl Hct (34.1-44.9) % MCV (79.4-94.8) fl MCH (25.6-32.2) pg MCHC (32.2-35.5) g/dl RDW Std Deviation (36.4-46.3) fL Plt Count (182-369) K/mm3 MPV (9.4-12.3) fl Neut % (Auto) (34.0-71.1) % Lymph % (Auto) (19.3-51.7) % Bailey % (Auto) (4.7-12.5) % Eos % (Auto) (0.7-5.8) Baso % (Auto) (0.1-1.2) % Neut # (Auto) (1.56-6.13) K/mm3 Lymph # (Auto) (1.18-3.74) K/mm3 Bailey # (Auto) (0.24-0.36) K/mm3 Eos # (Auto) (0.04-0.36) K/mm3 Baso # (Auto) (0.01-0.08) K/mm3 Manual Slide Review PT (9.7-12.0) SECONDS INR Sodium (136-145) mEq/L Potassium (3.5-5.1) mEq/L Chloride (98-107) mEq/L Carbon Dioxide (21-32) mEq/L Anion Gap (5-15) BUN (7-18) mg/dL Creatinine (0.55-1.02) mg/dL Est Cr Clr Drug Dosing mL/min Estimated GFR (MDRD) (>60) mL/min BUN/Creatinine Ratio (14-18) Glucose (80-115) mg/dL POC Glucose 77 L (80-115) mg/dL Calcium (8.5-10.1) mg/dL Magnesium (1.8-2.4) mg/dl Total Bilirubin (0.2-1.0) mg/dL AST (15-37) U/L ALT (14-59) U/L Alkaline Phosphatase (46-116) U/L Total Protein (6.4-8.2) g/dl Albumin (3.4-5.0) g/dl Globulin gm/dL Albumin/Globulin Ratio (1-2) Med Orders - Current: Current Medications Acetaminophen (Tylenol) 650 mg PO Q4H PRN PRN Reason: Pain (Mild 1-3)/fever Last Admin: 05/31/19 06:37 Dose: 650 mg Acetaminophen (Tylenol) 650 mg RECTAL Q4H PRN PRN Reason: Pain (mild 1-3) Acetaminophen (Tylenol) 975 mg PO BID PRN PRN Reason: Pain Last Admin: 06/01/19 06:25 Dose: 975 mg Albuterol (Proventil Hfa) 1 - 2 gm INH Q4H PRN PRN Reason: Dyspnea Albuterol/Ipratropium (Duoneb 3.0-0.5 Mg/3 Ml) 3 ml NEB Q4H PRN PRN Reason: Shortness Of Breath/wheezing Amlodipine Besylate (Norvasc) 5 mg PO DAILY [facility] Last Admin: 05/31/19 10:02 Dose: 5 mg Aspirin (Halfprin) 81 mg PO DAILY [facility] Last Admin: 05/31/19 10:01 Dose: 81 mg Baclofen (Lioresal) 10 - 20 mg PO TID PRN PRN Reason: Muscle Spasm Last Admin: 05/29/19 10:10 Dose: 10 mg Bisacodyl (Dulcolax) 5 mg PO DAILY PRN PRN Reason: Constipation Dextrose/Water (Dextrose 50% In Water) 50 ml IVPUSH ASDIRECTED PRN PRN Reason: Hypoglycemia Enoxaparin Sodium (Lovenox) 90 mg SUBCUT Q12H [facility] Last Admin: 05/31/19 21:08 Dose: 90 mg Promethazine HCl 12.5 mg/ (Sodium Chloride) 50.5 mls @ 100 mls/hr IV Q6H PRN PRN Reason: Nausea/Vomiting Insulin Human Lispro (Humalog) 0 unit SUBCUT QIDACANDBED [facility]; Protocol Last Admin: 06/01/19 06:20 Dose: Not Given Lorazepam (Ativan) 1 mg PO BID PRN PRN Reason: Anxiety Last Admin: 06/01/19 06:37 Dose: 1 mg Metformin HCl (Glucophage) 500 mg PO BIDM [facility] Last Admin: 06/01/19 06:26 Dose: 500 mg Metoprolol Succinate (Toprol Xl) 50 mg PO DAILY [facility] Last Admin: 05/31/19 10:02 Dose: 50 mg Metoprolol Tartrate (Lopressor) 5 mg IVPUSH Q4H PRN PRN Reason: Tachycardia Miscellaneous Information (Remove Patch) 1 ea TRDERM Q72H [facility] Last Admin: 06/01/19 06:29 Dose: 1 ea Nicotine Polacrilex (Nicorelief) 4 mg CHEW Q2H PRN PRN Reason: Withdrawal Symptoms Ondansetron HCl (Zofran) 4 mg IV Q6H PRN PRN Reason: Nausea/Vomiting Pantoprazole Sodium (Protonix) 40 mg PO DAILY@0700 [facility] Last Admin: 06/01/19 06:26 Dose: 40 mg Polyethylene Glycol (Miralax) 17 gm PO DAILY PRN PRN Reason: Constipation Senna/Docusate Sodium (Senna Plus) 1 tab PO BID PRN PRN Reason: Constipation Warfarin Sodium (Pharmacy To Dose - Warfarin) 1 dose .XX ASDIRECTED PRN PRN Reason: RX TO DOSE WARFARIN Zolpidem Tartrate (Ambien) 10 mg PO BEDTIME [facility] Last Admin: 05/31/19 21:08 Dose: 10 mg Discontinued Medications Al Hydroxide/Mg Hydroxide (Mag-Al Plus) 30 ml PO ONETIME ONE Stop: 05/31/19 02:20 Last Admin: 05/31/19 02:35 Dose: 30 ml Amlodipine Besylate (Norvasc) 5 mg PO BID [facility] Last Admin: 05/29/19 10:15 Dose: 5 mg Diatrizoate Meglum/Diatrizoate Sod (Gastrografin 37%) 60 ml PO ONETIME ONE Stop: 05/28/19 20:49 Last Admin: 05/28/19 21:45 Dose: 60 ml Enoxaparin Sodium (Lovenox) 100 mg SUBCUT Q12H [facility] Heparin Sodium (Porcine) (Heparin Sodium) 5,000 units SUBCUT Q8H [facility] Last Admin: 05/29/19 02:59 Dose: 5,000 units Lactated Ringer's (Ringers, Lactated) 1,000 mls @ 50 mls/hr IV ASDIRECTED CYNDY Stop: 05/29/19 14:14 Last Admin: 05/28/19 22:14 Dose: 50 mls/hr Sodium Chloride (Normal Saline) 500 mls @ 999 mls/hr IV .BOLUS ONE Stop: 05/28/19 18:40 Last Admin: 05/28/19 22:14 Dose: 999 mls/hr Iopamidol (Isovue-300 (61%)) 100 ml IVPUSH ONETIME ONE Stop: 05/28/19 20:49 Last Admin: 05/28/19 21:45 Dose: 100 ml Ketorolac Tromethamine (Toradol) 15 mg IV Q6H PRN PRN Reason: Pain (moderate 4-6) Last Admin: 05/29/19 08:48 Dose: 15 mg Lorazepam (Ativan) 0.5 mg PO BID [facility] Last Admin: 05/29/19 10:11 Dose: 0.5 mg Metoprolol Succinate (Toprol Xl) 50 mg PO DAILY [facility] Last Admin: 05/29/19 10:15 Dose: 50 mg Metoprolol Succinate (Toprol Xl) 100 mg PO DAILY [facility] Metoprolol Tartrate (Lopressor) 12.5 mg PO BID [facility] Last Admin: 05/29/19 08:31 Dose: 12.5 mg Scopolamine (Transderm-Scop) 1.5 mg TRDERM Q72H ONE Stop: 05/28/19 19:38 Last Admin: 05/28/19 21:06 Dose: 1.5 mg Temazepam (Restoril) 7.5 mg PO BEDTIME PRN PRN Reason: Sleep Last Admin: 05/29/19 23:20 Dose: 7.5 mg Warfarin Sodium (Coumadin) 5 mg PO DAILY@1800 [facility] Warfarin Sodium (Coumadin) 5 mg PO DAILY@1800 [facility] Stop: 05/29/19 18:01 Last Admin: 05/29/19 18:14 Dose: 5 mg Warfarin Sodium (Coumadin) 5 mg PO QPM [facility] Stop: 05/30/19 18:01 Last Admin: 05/30/19 17:23 Dose: 5 mg Warfarin Sodium (Coumadin) 5 mg PO DAILY@1800 [facility] Warfarin Sodium (Coumadin) 7.5 mg PO QPM [facility] Stop: 05/31/19 18:01 Last Admin: 05/31/19 17:04 Dose: 7.5 mg Zolpidem Tartrate (Ambien) 10 mg PO BEDTIME [facility] Zolpidem Tartrate (Ambien) 5 mg PO BEDTIME [facility] Last Admin: 05/30/19 20:45 Dose: 5 mg - Exam General: Alert, Oriented, Cooperative, No Acute Distress HEENT: Pupils Equal, Pupils Reactive, EOMI, Mucous Membr. Moist/Elsie Neck: Supple Lungs: Clear to Auscultation, Normal Respiratory Effort Cardiovascular: Irregular Rhythm GI/Abdominal Exam: Normal Bowel Sounds, Soft, Non-Tender, No Organomegaly, No Distention, No Abnormal Bruit, No Mass (Female) Exam: Deferred Back Exam: Normal Inspection, Decreased Range of Motion Extremities: Normal Inspection, Normal Range of Motion, Non-Tender, No Pedal Edema, Normal Capillary Refill Peripheral Pulses: 2+: Posterior Tibial (L), Posterior Tibial (R), Dorsalis Pedis (L), Dorsalis Pedis (R) Skin: Warm, Dry, Intact Neurological: No New Focal Deficit Psy/Mental Status: Alert, Normal Affect, Normal Mood Sepsis Event Note - Evaluation Sepsis Screening Result: No Definite Risk - Focused Exam Vital Signs: Vital Signs Temp Pulse Resp BP Pulse Ox 06/01/19 01:00 36.4 C 87 20 122/89 91 L 05/31/19 21:15 36.6 C 82 20 104/75 93 L Date Exam was Performed: 06/01/19 Time Exam was Performed: 14:39 - Problem List Review Problem List Initiated/Reviewed/Updated: Yes - My Orders Last 24 Hours: My Active Orders 05/31/19 12:16 Consult to Physician [CONS] Urgent 05/31/19 12:18 Notify Provider Consults [RC] ASDIRECTED 05/31/19 13:06 Nicotine Polacrilex [Nicorelief] 4 mg CHEW Q2H PRN 05/31/19 21:00 Zolpidem [Ambien] 10 mg PO BEDTIME 06/01/19 07:00 Pantoprazole [ProTONIX] 40 mg PO DAILY@0700 metFORMIN [Glucophage] 500 mg PO BIDM - Plan Plan:: Acute: Atrial Fibrillation, HR controlled New onset Was found with irregular heart rate at the clinic with a HR of 106 on EKG ALFRED VASC score of 4; carries moderate high risk w/o anticoagulation PLAN: Thyroid panel 2D echo report read as EF of 55% with no RWMA and Moderate Aortic Valve Sclerosis w/o Stenosis Rate control agent- Metoprolol Succinate 50 mg po Daily Warfarin and Heparin for stroke prophylaxis with INR goal of bet 2-3 Gastroenteritis, Resolved Risk factors: GERD, Vincent's Esophagus, Long standing DM2, and Hiatal Hernia No GB but still has appendix No other GI surgery except for hysterectomy No specific triggers Tolerated liquid diet last night No nausea or vomiting C. Diff test negative PLAN: Abdominal/Pelvis CT scan with oral and IV contrast confirms it She is now on regular diet Hyperglycemia with DM2, Controlled BS of 144 from the clinic-->now 116 Last A1C 6 taken on today shows A1C of 6.0 PLAN: Accu-check Q6H with low dose ISS Metformin 500 mg po daily Dyslipidemia Lipid Panel at the clinic shows elevated Trig level of 201 nd LDL of 107. However HDL is 49 Already on Atorvastatin 20 mg po Daily PLAN: AHA diet once po with regular meal Subtherapeutic INR INR is 1.0-->1.10-->1.43 Continue Lovenox 90 units SubQ BID Warfarin for pharmacy to dose Severe Insomnia/Sleep Related Mood Disorders This is chronic to her and had trouble getting rest or sleeping for many years now Takes Ambien 5mg plus Baclofen and Ativan scheduled for night time States the regimen sometimes work Also thinks anxiety and racing thoughts may be contributory Denies drinking caffeinated products or coffee at night prior to bed time Has poor sleep hygiene w/o consistent bedtime hours Received Restoril and Ambien plus Baclofen and Ativan Friday Evening but the regimen did not work according to her Awaiting Tele-psych consult Sleep Related Mood Disorder (SRMD) Has not well controlled anxiety and poor sleep habits/insomnia She states I was not addressing it but untrue Had Ambien, Restoril, Ativan and Baclofen Friday night but reports not relief from it Had her usual night time dose last night but it did not work Awaiting Tele psych consult Resolved: Lightheadedness and Dizziness, Resolved Carries a hx/o dizziness felt to be associated with abdominal discomfort Gets symptomatic with abrupt change in position or when she gets up quickly However she was just diagnosed with new onset of atrial fibrillation She has no focal neurological deficits PLAN: Fall Precautions and PT/OT eval UA negative Chest Pain r/o ACS, Resolved R/o Angina Equivalent Risk Factors: HTN, HLD, DM2, and Atherosclerosis (diagnosed on previous abdominal CT scan taken in 2017) Heaviness today on presentation to her PCP for routine follow up appointment Serial troponin x 3 all negative No more chest pain PLAN: Had stress test back in December with benign work up Outpatient follow up with cardiology in [place] after discharge Additional Abnormal CT scan Findings Left renal cysts Nonobstructing nephrolithiasis on left kidney Subcentimeter right/left renal hypodense lesions(s) too small to characterize Atherosclerotic calcification of the abdominal aorta and iliac arteries Small fat containing umbilical hernia Chronic: Fibromyalgia, HTN, DM2, Constipation, Depression, GERD, Vincent's Esophagus, Small Hiatal Hernia, Chronic Abdominal Pain, and Obesity Plan: Continue current treatment. INR is improving but slow. Regular diet. Fall precautions. GI prophylaxis. DVT/Stroke prophylaxis as above. PT/OT consult. Hopefully Dr. Jarvis can help her with her underlying Severe Insomnia. Encourage to ambulate as tolerated. Dietary consult to review diet for loose stool; patient wants more formed stool. Code status is full. LOS anticipate > 96hrs due to subtherapeutic INR and response to new psych medications.
[2019-06-01] MEDS: amLODIPine 5 MG Tab PO SCH (08:51)
[2019-06-01] MEDS: Aspirin 81 MG Tab.EC PO SCH (08:51)
[2019-06-01] MEDS: Metoprolol Succinate 50 MG Tab.ER PO SCH (08:52)
[2019-06-01] MEDS: Enoxaparin 100 MG/1 ML Syringe SUBCUT SCH ×2 (08:52→20:49)
[2019-06-01] MEDS: Topiramate 25 MG Tab PO SCH ×2 (12:26→20:45)
[2019-06-01] MEDS ORDERED: Ketorolac 15 MG/ML SDV IVPUSH SCH (14:30)
[2019-06-01] MEDS: LORazepam 1 MG Tab PO SCH ×2 (15:00→20:45)
[2019-06-01] MEDS: Nicotine Polacrilex 2 MG Gum CHEW PRN ×2 (15:00→19:30)
[2019-06-01] MEDS ORDERED: Ketorolac 15 MG/ML SDV IVPUSH PRN (17:10)
[2019-06-01] MEDS ORDERED: Warfarin 5 MG Tab PO ONE (18:00)
[2019-06-01] MEDS ORDERED: QUEtiapine 25 MG Tab PO SCH (21:00)
[2019-06-02] MEDS: Pantoprazole 40 MG Tab.CR PO SCH (06:07)
[2019-06-02] MEDS: Acetaminophen 325 MG Tab PO PRN (06:07)
[2019-06-02] MEDS: Insulin Lispro 100 Units/ML 3 ML Vial SUBCUT SCH ×2 (06:08→12:08)
[2019-06-02] MEDS: metFORMIN 500 MG Tab PO SCH (06:08)
--- NOTE | 2019-06-02 07:41 | PCM.PN ---
- General Info Date of Service: 06/02/19 Admission Dx/Problem (Free Text): Abdominal Pain with New onset of Afib Subjective Update: Follow Up Functional Status: Reports: Pain Controlled, Tolerating Diet, Ambulating, Urinating, New Symptoms - Review of Systems Systems Review Comment:: Had a rough night and felt like she was "drugged" otherwise no acute issues. - Patient Data Vitals - Most Recent: Last Vital Signs Temp 36.7 C 06/02/19 05:35 Pulse 108 H 06/02/19 05:35 Resp 16 06/02/19 05:35 BP 111/77 06/02/19 05:35 Pulse Ox 92 L 06/02/19 05:35 Weight - Most Recent: 88.269 kg I&O - Last 24 Hours: Intake & Output 06/01/19 06/02/19 06/02/19 22:59 06:59 14:59 Intake Total 745 500 Output Total 2200 200 Balance -1455 300 Lab Results Last 24 Hours: Laboratory Results - last 24 hr 05/29/19 06/01/19 06/01/19 Range/Units 05:52 05:48 10:59 PT 15.3 H (9.7-12.0) SECONDS INR 1.43 POC Glucose 104 (80-115) mg/dL Thyroxine (T4) 7.1 (4.5-12.0) ug/dL 06/01/19 06/01/19 06/02/19 Range/Units 18:05 22:07 06:05 PT (9.7-12.0) SECONDS INR POC Glucose 90 93 115 (80-115) mg/dL Thyroxine (T4) (4.5-12.0) ug/dL Med Orders - Current: Current Medications Acetaminophen (Tylenol) 650 mg PO Q4H PRN PRN Reason: Pain (Mild 1-3)/fever Last Admin: 06/02/19 06:07 Dose: 650 mg Acetaminophen (Tylenol) 650 mg RECTAL Q4H PRN PRN Reason: Pain (mild 1-3) Acetaminophen (Tylenol) 975 mg PO BID PRN PRN Reason: Pain Last Admin: 06/01/19 06:25 Dose: 975 mg Albuterol (Proventil Hfa) 1 - 2 gm INH Q4H PRN PRN Reason: Dyspnea Albuterol/Ipratropium (Duoneb 3.0-0.5 Mg/3 Ml) 3 ml NEB Q4H PRN PRN Reason: Shortness Of Breath/wheezing Amlodipine Besylate (Norvasc) 5 mg PO DAILY [facility] Last Admin: 06/01/19 08:51 Dose: 5 mg Aspirin (Halfprin) 81 mg PO DAILY [facility] Last Admin: 06/01/19 08:51 Dose: 81 mg Baclofen (Lioresal) 10 - 20 mg PO TID PRN PRN Reason: Muscle Spasm Last Admin: 05/29/19 10:10 Dose: 10 mg Bisacodyl (Dulcolax) 5 mg PO DAILY PRN PRN Reason: Constipation Dextrose/Water (Dextrose 50% In Water) 50 ml IVPUSH ASDIRECTED PRN PRN Reason: Hypoglycemia Enoxaparin Sodium (Lovenox) 90 mg SUBCUT Q12H [facility] Last Admin: 06/01/19 20:49 Dose: 90 mg Promethazine HCl 12.5 mg/ (Sodium Chloride) 50.5 mls @ 100 mls/hr IV Q6H PRN PRN Reason: Nausea/Vomiting Insulin Human Lispro (Humalog) 0 unit SUBCUT QIDACANDBED [facility]; Protocol Last Admin: 06/02/19 06:08 Dose: Not Given Ketorolac Tromethamine (Toradol) 15 mg IVPUSH Q8H PRN PRN Reason: Pain Lorazepam (Ativan) 1 mg PO BID PRN PRN Reason: Anxiety Last Admin: 06/01/19 06:37 Dose: 1 mg Lorazepam (Ativan) 1 mg PO TID [facility] Last Admin: 06/01/19 20:45 Dose: 1 mg Metformin HCl (Glucophage) 500 mg PO BIDM [facility] Last Admin: 06/02/19 06:08 Dose: 500 mg Metoprolol Succinate (Toprol Xl) 50 mg PO DAILY [facility] Last Admin: 06/01/19 08:52 Dose: 50 mg Metoprolol Tartrate (Lopressor) 5 mg IVPUSH Q4H PRN PRN Reason: Tachycardia Miscellaneous Information (Remove Patch) 1 ea TRDERM Q72H [facility] Last Admin: 06/01/19 06:29 Dose: 1 ea Nicotine Polacrilex (Nicorelief) 4 mg CHEW Q2H PRN PRN Reason: Withdrawal Symptoms Last Admin: 06/01/19 19:30 Dose: 4 mg Ondansetron HCl (Zofran) 4 mg IV Q6H PRN PRN Reason: Nausea/Vomiting Pantoprazole Sodium (Protonix) 40 mg PO DAILY@0700 [facility] Last Admin: 06/02/19 06:07 Dose: 40 mg Polyethylene Glycol (Miralax) 17 gm PO DAILY PRN PRN Reason: Constipation Quetiapine Fumarate (Seroquel) 75 mg PO BEDTIME [facility] Last Admin: 06/01/19 20:45 Dose: 75 mg Senna/Docusate Sodium (Senna Plus) 1 tab PO BID PRN PRN Reason: Constipation Topiramate (Topamax) 25 mg PO BID [facility] Last Admin: 06/01/19 20:45 Dose: 25 mg Warfarin Sodium (Pharmacy To Dose - Warfarin) 1 dose .XX ASDIRECTED PRN PRN Reason: RX TO DOSE WARFARIN Discontinued Medications Al Hydroxide/Mg Hydroxide (Mag-Al Plus) 30 ml PO ONETIME ONE Stop: 05/31/19 02:20 Last Admin: 05/31/19 02:35 Dose: 30 ml Amlodipine Besylate (Norvasc) 5 mg PO BID [facility] Last Admin: 05/29/19 10:15 Dose: 5 mg Diatrizoate Meglum/Diatrizoate Sod (Gastrografin 37%) 60 ml PO ONETIME ONE Stop: 05/28/19 20:49 Last Admin: 05/28/19 21:45 Dose: 60 ml Enoxaparin Sodium (Lovenox) 100 mg SUBCUT Q12H [facility] Heparin Sodium (Porcine) (Heparin Sodium) 5,000 units SUBCUT Q8H [facility] Last Admin: 05/29/19 02:59 Dose: 5,000 units Lactated Ringer's (Ringers, Lactated) 1,000 mls @ 50 mls/hr IV ASDIRECTED CYNDY Stop: 05/29/19 14:14 Last Admin: 05/28/19 22:14 Dose: 50 mls/hr Sodium Chloride (Normal Saline) 500 mls @ 999 mls/hr IV .BOLUS ONE Stop: 05/28/19 18:40 Last Admin: 05/28/19 22:14 Dose: 999 mls/hr Iopamidol (Isovue-300 (61%)) 100 ml IVPUSH ONETIME ONE Stop: 05/28/19 20:49 Last Admin: 05/28/19 21:45 Dose: 100 ml Ketorolac Tromethamine (Toradol) 15 mg IV Q6H PRN PRN Reason: Pain (moderate 4-6) Last Admin: 05/29/19 08:48 Dose: 15 mg Ketorolac Tromethamine (Toradol) 15 mg IVPUSH Q8H [facility] Last Admin: 06/01/19 14:59 Dose: 15 mg Lorazepam (Ativan) 0.5 mg PO BID [facility] Last Admin: 05/29/19 10:11 Dose: 0.5 mg Metoprolol Succinate (Toprol Xl) 50 mg PO DAILY [facility] Last Admin: 05/29/19 10:15 Dose: 50 mg Metoprolol Succinate (Toprol Xl) 100 mg PO DAILY [facility] Metoprolol Tartrate (Lopressor) 12.5 mg PO BID [facility] Last Admin: 05/29/19 08:31 Dose: 12.5 mg Scopolamine (Transderm-Scop) 1.5 mg TRDERM Q72H ONE Stop: 05/28/19 19:38 Last Admin: 05/28/19 21:06 Dose: 1.5 mg Temazepam (Restoril) 7.5 mg PO BEDTIME PRN PRN Reason: Sleep Last Admin: 05/29/19 23:20 Dose: 7.5 mg Warfarin Sodium (Coumadin) 5 mg PO DAILY@1800 [facility] Warfarin Sodium (Coumadin) 5 mg PO DAILY@1800 [facility] Stop: 05/29/19 18:01 Last Admin: 05/29/19 18:14 Dose: 5 mg Warfarin Sodium (Coumadin) 5 mg PO QPM [facility] Stop: 05/30/19 18:01 Last Admin: 05/30/19 17:23 Dose: 5 mg Warfarin Sodium (Coumadin) 5 mg PO DAILY@1800 [facility] Warfarin Sodium (Coumadin) 7.5 mg PO QPM [facility] Stop: 05/31/19 18:01 Last Admin: 05/31/19 17:04 Dose: 7.5 mg Warfarin Sodium (Coumadin) 5 mg PO ONETIME ONE Stop: 06/01/19 18:01 Last Admin: 06/01/19 18:07 Dose: 5 mg Zolpidem Tartrate (Ambien) 10 mg PO BEDTIME [facility] Zolpidem Tartrate (Ambien) 5 mg PO BEDTIME [facility] Last Admin: 05/30/19 20:45 Dose: 5 mg Zolpidem Tartrate (Ambien) 10 mg PO BEDTIME [facility] Last Admin: 05/31/19 21:08 Dose: 10 mg Sepsis Event Note - Evaluation Sepsis Screening Result: No Definite Risk - Focused Exam Vital Signs: Vital Signs Temp Pulse Pulse Resp BP Pulse Ox 06/02/19 05:35 36.7 C 108 H 16 111/77 92 L 06/01/19 20:43 36.4 C 16 103/78 96 06/01/19 20:00 105 H Date Exam was Performed: 06/02/19 Time Exam was Performed: 07:41 - My Orders Last 24 Hours: My Active Orders 06/01/19 07:00 Pantoprazole [ProTONIX] 40 mg PO DAILY@0700 metFORMIN [Glucophage] 500 mg PO BIDM 06/01/19 17:10 Ketorolac [Toradol] 15 mg IVPUSH Q8H PRN 06/03/19 05:11 BMP [BASIC METABOLIC PANEL,BMP] [CHEM] AM CBC WITH AUTO DIFF [HEME] AM 06/04/19 05:11 BMP [BASIC METABOLIC PANEL,BMP] [CHEM] AM CBC WITH AUTO DIFF [HEME] AM 06/05/19 05:11 BMP [BASIC METABOLIC PANEL,BMP] [CHEM] AM CBC WITH AUTO DIFF [HEME] AM 06/06/19 05:11 BMP [BASIC METABOLIC PANEL,BMP] [CHEM] AM CBC WITH AUTO DIFF [HEME] AM - Plan Plan:: Acute: Atrial Fibrillation, HR controlled New onset Was found with irregular heart rate at the clinic with a HR of 106 on EKG ALFRED VASC score of 4; carries moderate high risk w/o anticoagulation PLAN: Thyroid panel 2D echo report read as EF of 55% with no RWMA and Moderate Aortic Valve Sclerosis w/o Stenosis Rate control agent- Metoprolol Succinate 50 mg po Daily Warfarin and Heparin for stroke prophylaxis with INR goal of bet 2-3 Gastroenteritis, Resolved Risk factors: GERD, Vincent's Esophagus, Long standing DM2, and Hiatal Hernia No GB but still has appendix No other GI surgery except for hysterectomy No specific triggers Tolerated liquid diet last night No nausea or vomiting C. Diff test negative PLAN: Abdominal/Pelvis CT scan with oral and IV contrast confirms it She is now on regular diet Hyperglycemia with DM2, Controlled BS of 144 from the clinic-->now 116 Last A1C 6 taken on today shows A1C of 6.0 PLAN: Accu-check Q6H with low dose ISS Metformin 500 mg po daily Dyslipidemia Lipid Panel at the clinic shows elevated Trig level of 201 nd LDL of 107. However HDL is 49 Already on Atorvastatin 20 mg po Daily PLAN: AHA diet once po with regular meal Subtherapeutic INR INR is 1.0-->1.10-->1.43 Continue Lovenox 90 units SubQ BID Warfarin for pharmacy to dose Severe Insomnia/Sleep Related Mood Disorders This is chronic to her and had trouble getting rest or sleeping for many years now Takes Ambien 5mg plus Baclofen and Ativan scheduled for night time States the regimen sometimes work Also thinks anxiety and racing thoughts may be contributory Denies drinking caffeinated products or coffee at night prior to bed time Has poor sleep hygiene w/o consistent bedtime hours Received Restoril and Ambien plus Baclofen and Ativan Friday Evening but the regimen did not work according to her Awaiting Tele-psych consult Sleep Related Mood Disorder (SRMD) Has not well controlled anxiety and poor sleep habits/insomnia She states I was not addressing it but untrue Had Ambien, Restoril, Ativan and Baclofen Friday night but reports not relief from it Had her usual night time dose last night but it did not work Awaiting Tele psych consult Resolved: Lightheadedness and Dizziness, Resolved Carries a hx/o dizziness felt to be associated with abdominal discomfort Gets symptomatic with abrupt change in position or when she gets up quickly However she was just diagnosed with new onset of atrial fibrillation She has no focal neurological deficits PLAN: Fall Precautions and PT/OT eval UA negative Chest Pain r/o ACS, Resolved R/o Angina Equivalent Risk Factors: HTN, HLD, DM2, and Atherosclerosis (diagnosed on previous abdominal CT scan taken in 2016) Heaviness today on presentation to her PCP for routine follow up appointment Serial troponin x 3 all negative No more chest pain PLAN: Had stress test back in December with benign work up Outpatient follow up with cardiology in [place] after discharge Additional Abnormal CT scan Findings Left renal cysts Nonobstructing nephrolithiasis on left kidney Subcentimeter right/left renal hypodense lesions(s) too small to characterize Atherosclerotic calcification of the abdominal aorta and iliac arteries Small fat containing umbilical hernia Chronic: Fibromyalgia, HTN, DM2, Constipation, Depression, GERD, Vincent's Esophagus, Small Hiatal Hernia, Chronic Abdominal Pain, and Obesity Plan: Continue current treatment. INR is improving but slow. Regular diet. Fall precautions. GI prophylaxis. DVT/Stroke prophylaxis as above. PT/OT consult. Hopefully Dr. Jarvis can help her with her underlying Severe Insomnia. Encourage to ambulate as tolerated. Dietary consult to review diet for loose stool; patient wants more formed stool. Code status is full. LOS anticipate > 96hrs due to subtherapeutic INR and response to new psych medications.
[2019-06-02] MEDS ORDERED: LORazepam 1 MG Tab PO PRN (09:15)
[2019-06-02] MEDS: Aspirin 81 MG Tab.EC PO SCH (09:56)
[2019-06-02] MEDS: LORazepam 1 MG Tab PO SCH (09:57)
[2019-06-02] MEDS: amLODIPine 5 MG Tab PO SCH (10:00)
[2019-06-02] MEDS: Topiramate 25 MG Tab PO SCH (10:01)
[2019-06-02] MEDS: Metoprolol Succinate 50 MG Tab.ER PO SCH (10:01)
[2019-06-02 10:16] VITALS: BP 128/94; PULSE 77
--- NOTE | 2019-06-02 10:30 | PCM.DCSUM1 ---
Discharge Summary - Hospital Course HPI Initial Comments: This is a 68 yo elderly white female with past medical hx/o Fibromyalgia, HTN, DM2, Constipation, Depression, GERD, Vincent's Esophagus, Small Hiatal Hernia, Chronic Abdominal Pain, and Obesity who was seen for routine visit with her PCP and was diagnosed with new onset of atrial fibrillation with HR in the low hundreds. She endorses chronic abdominal discomfort associated with nausea, vomiting, lightheadedness, dizziness and chest heaviness. She has had upper and lower endoscopy performed by Dr. Salter in [facility] in Feb with benign results and has not gone back to see him for follow up since the procedures. She has not been diagnosed with gastroparesis or PUD. However she carries GERD, Hiatal Hernia, Vincent's Esophagus and long standing hx/o Diabetes. Her initial work up at the clinic shows a fairly unremarkable WBC. Her chemistry is significant for BS of 144 and Cl of 110. Her Lipid panel shows Chol of 196, Trig of 201, HLD of 49, and LDL of 107. Her UA is negative for UTI. Her A1C is 6.0. Patient is coming in primarily for further management of new onset of atrial fibrillation. Diagnosis: Stroke: No Modified Hume Scale: No Symptoms at All Modified Janet Scale Score: 0 - Discharge Data Discharge Date: 06/02/19 Discharge Disposition: Home, Self-Care 01 Condition: Good - Referral to Home Health Primary Care Physician: Dio Webb MD - Patient Summary/Data Operative Procedure(s) Performed: None Complications: None Consults: Consultations 05/28/19 18:01 Consult to Case Management/Miner Operator [CONS] Routine Consult to Spiritual Care [CONS] Routine OT Evaluation and Treatment [CONS] Routine PT Evaluation and Treatment [CONS] Routine 05/31/19 12:16 Consult to Physician [CONS] Urgent Labs Pending at D/C: None Recommended Follow-up Testing/Procedures: INR by Friday Hospital Course: Patient was primarily admitted for new onset of atrial fibrillation with partially controlled heart rate. She was initially seen at the clinic but was referred to us for further management. She was treated with Beta Tangela and was put on Warfarin for stroke prophylaxis. During this hospitalization, she was diagnosed with gastroenteritis felt to be due to viral in etiology. She did however improve gradually with supportive care and medical management. Her hospital course was fairly complicated by her chronic insomnia. We tried to help her medically but without any success. We then consulted Dr. Jarvis and he adjusted her psychotropic regimen as well as started her on Seroquel for anxiety reduction and sleep initiation. Unfortunately, she did not like how she felt so she decided to go back on her triple home regimen of Baclofen, Ativan, and Ambien. Once medically stable with therapeutic INR level, she was then released from the hospital. She was cautioned about alcohol use and operating any motor vehicles while on the above regimen. She was advised to follow up with her PCP and to see GI for her chronic GI issues after discharge. The patient expressed understanding and in agreement with the plans as discussed above. All questions and concerns answered. - Patient Instructions Diet: Heart Healthy Diet, Diabetic Diet Activity: As Tolerated Driving, Other: Do not drive today Showering/Bathing: May Shower Notify Provider of: Fever, Increased Pain, Swelling and Redness, Nausea and/or Vomiting Other/Special Instructions: - Please take all new medications as directed. - Resume all home medications and routine home activities as tolerated. - Recommend follow up INR through your PCP's office this coming Friday. - Absolutely avoid alcohol while taking Ambien, Ativan and Baclofen. - Recommend you see GI for further eval of your "gut leakage". - Recommend sleep study or see a specialist for your severe Insomnia. - Call or follow up with your PCP for any questions or concerns after discharge. - Follow up with your PCP in 1 week with repeat INR. - Come back or seek immediate care should your symptoms persist or get worse - Discharge Plan *PRESCRIPTION DRUG MONITORING PROGRAM REVIEWED*: Not Applicable *COPY OF PRESCRIPTION DRUG MONITORING REPORT IN PATIENT LASHA: Not Applicable Prescriptions/Med Rec: Metoprolol Succinate 50 mg PO DAILY #30 tab.er.24h Warfarin [Coumadin] 2.5 mg PO DAILY #30 tab Home Medications: Home Meds Baclofen 10 mg PO TID PRN 11/08/14 [History] LORazepam [Ativan] 1 mg PO BID PRN 11/08/14 [History] Zolpidem [Ambien] 5 mg PO BEDTIME 11/08/14 [History] metFORMIN [Glucophage] 500 mg PO BIDM 11/08/14 [History] Acetaminophen [Acetaminophen Extra Strength] 1,000 mg PO BID PRN 05/29/19 [ History] Aspirin [Halfprin] 81 mg PO DAILY 05/29/19 [History] Omeprazole 40 mg PO DAILY 05/29/19 [History] Metoprolol Succinate 50 mg PO DAILY #30 tab.er.24h 06/02/19 [Rx] Warfarin [Coumadin] 2.5 mg PO DAILY #30 tab 06/02/19 [Rx] amLODIPine Besylate [Amlodipine Besylate] 5 mg PO DAILY #0 06/02/19 [Rx] Oxygen Therapy Mode: Room Air Patient Handouts: Vitamin K Foods and Warfarin, Viral Gastroenteritis, Adult, [id number], Food Choices to Help Relieve Diarrhea, Adult, Hyperglycemia, Easy- to-Read, Nonspecific Chest Pain, [id number]-[id number], Insomnia, Dyslipidemia, Steps to Quit Smoking Referrals: Dio Webb MD [Primary Care Provider] - 06/09/19 1:00 pm (Obtain a referral for a fleet administrative assistant (stomach doctor) and psychiatrist (mental health doctor ) as needed at your follow-up appointment.) - Discharge Summary/Plan Comment DC Time >30 min.: No Discharge Summary/Plan Comment: Discharge to Home Offered practical counseling on smoking cigarettes. She was counseled about the dangers of smoking and associated health risks. At this time she is not ready to quit but receptive to the idea of smoking cessation. Patient was provided reading materials or brochures to help when to quit smoking. She was advised to set a specific date, call the Quit line and follow up with her PCP when she is ready to quit. - General Info Date of Service: 06/02/19 Subjective Update: Had a rough night and felt like she was "drugged" otherwise no acute issues except her chronic pain and fibromyalgia. Functional Status: Reports: Tolerating Diet, Ambulating, Urinating, New Symptoms. Denies: Pain Controlled - Review of Systems General: Denies: Fever, Weakness, Fatigue, Malaise, Chills HEENT: Reports: No Symptoms Pulmonary: Denies: Shortness of Breath Cardiovascular: Denies: Chest Pain, Dyspnea on Exertion, Lightheadedness Gastrointestinal: Denies: Abdominal Pain, Nausea, Vomiting Genitourinary: Reports: No Symptoms Musculoskeletal: Reports: No Symptoms Neurological: Denies: Confusion, Numbness, Tingling, Trouble Speaking Psychiatric: Denies: Confusion, Mood Lability, Anxiety, Agitation, Hallucinations Systems Review Comment: Nolan slept good but did not sleep right. She states "I could not move my hand'. I felt I was out of my element" It's hard to explain. Now requesting not the take the pills she took last night. However her INR is now at therapeutic range. - Patient Data Vitals - Most Recent: Last Vital Signs Temp 36.7 C 06/02/19 05:35 Pulse 77 06/02/19 10:01 Resp 16 06/02/19 05:35 BP 128/94 H 06/02/19 10:01 Pulse Ox 92 L 06/02/19 05:35 Weight - Most Recent: 88.269 kg I&O - Last 24 hours: Intake & Output 06/01/19 06/02/19 06/02/19 22:59 06:59 14:59 Intake Total 745 500 Output Total 2200 200 Balance -1455 300 Lab Results - Last 24 hrs: Laboratory Results - last 24 hr 05/29/19 06/01/19 06/01/19 Range/Units 05:52 10:59 18:05 PT (9.7-12.0) SECONDS INR POC Glucose 104 90 (80-115) mg/dL Thyroxine (T4) 7.1 (4.5-12.0) ug/dL 06/01/19 06/02/19 06/02/19 Range/Units 22:07 05:34 06:05 PT 22.2 H D (9.7-12.0) SECONDS INR 2.13 POC Glucose 93 115 (80-115) mg/dL Thyroxine (T4) (4.5-12.0) ug/dL Med Orders - Current: Current Medications Acetaminophen (Tylenol) 650 mg PO Q4H PRN PRN Reason: Pain (Mild 1-3)/fever Last Admin: 06/02/19 06:07 Dose: 650 mg Acetaminophen (Tylenol) 650 mg RECTAL Q4H PRN PRN Reason: Pain (mild 1-3) Acetaminophen (Tylenol) 975 mg PO BID PRN PRN Reason: Pain Last Admin: 06/01/19 06:25 Dose: 975 mg Albuterol (Proventil Hfa) 1 - 2 gm INH Q4H PRN PRN Reason: Dyspnea Albuterol/Ipratropium (Duoneb 3.0-0.5 Mg/3 Ml) 3 ml NEB Q4H PRN PRN Reason: Shortness Of Breath/wheezing Amlodipine Besylate (Norvasc) 5 mg PO DAILY [facility] Last Admin: 06/02/19 10:00 Dose: 5 mg Aspirin (Halfprin) 81 mg PO DAILY [facility] Last Admin: 06/02/19 09:56 Dose: 81 mg Baclofen (Lioresal) 10 - 20 mg PO TID PRN PRN Reason: Muscle Spasm Last Admin: 05/29/19 10:10 Dose: 10 mg Bisacodyl (Dulcolax) 5 mg PO DAILY PRN PRN Reason: Constipation Dextrose/Water (Dextrose 50% In Water) 50 ml IVPUSH ASDIRECTED PRN PRN Reason: Hypoglycemia Promethazine HCl 12.5 mg/ (Sodium Chloride) 50.5 mls @ 100 mls/hr IV Q6H PRN PRN Reason: Nausea/Vomiting Insulin Human Lispro (Humalog) 0 unit SUBCUT QIDACANDBED [facility]; Protocol Last Admin: 06/02/19 06:08 Dose: Not Given Ketorolac Tromethamine (Toradol) 15 mg IVPUSH Q8H PRN PRN Reason: Pain Last Admin: 06/02/19 10:02 Dose: 15 mg Lorazepam (Ativan) 1 mg PO TID [facility] Last Admin: 06/02/19 09:57 Dose: 1 mg Lorazepam (Ativan) 1 mg PO BID PRN PRN Reason: Anxiety Metformin HCl (Glucophage) 500 mg PO BIDM [facility] Last Admin: 06/02/19 06:08 Dose: 500 mg Metoprolol Succinate (Toprol Xl) 50 mg PO DAILY [facility] Last Admin: 06/02/19 10:01 Dose: 50 mg Metoprolol Tartrate (Lopressor) 5 mg IVPUSH Q4H PRN PRN Reason: Tachycardia Miscellaneous Information (Remove Patch) 1 ea TRDERM Q72H [facility] Last Admin: 06/01/19 06:29 Dose: 1 ea Nicotine Polacrilex (Nicorelief) 4 mg CHEW Q2H PRN PRN Reason: Withdrawal Symptoms Last Admin: 06/01/19 19:30 Dose: 4 mg Ondansetron HCl (Zofran) 4 mg IV Q6H PRN PRN Reason: Nausea/Vomiting Pantoprazole Sodium (Protonix) 40 mg PO DAILY@0700 [facility] Last Admin: 06/02/19 06:07 Dose: 40 mg Polyethylene Glycol (Miralax) 17 gm PO DAILY PRN PRN Reason: Constipation Quetiapine Fumarate (Seroquel) 75 mg PO BEDTIME [facility] Last Admin: 06/01/19 20:45 Dose: 75 mg Senna/Docusate Sodium (Senna Plus) 1 tab PO BID PRN PRN Reason: Constipation Topiramate (Topamax) 25 mg PO BID [facility] Last Admin: 06/02/19 10:01 Dose: Not Given Warfarin Sodium (Pharmacy To Dose - Warfarin) 1 dose .XX ASDIRECTED PRN PRN Reason: RX TO DOSE WARFARIN Discontinued Medications Al Hydroxide/Mg Hydroxide (Mag-Al Plus) 30 ml PO ONETIME ONE Stop: 05/31/19 02:20 Last Admin: 05/31/19 02:35 Dose: 30 ml Amlodipine Besylate (Norvasc) 5 mg PO BID [facility] Last Admin: 05/29/19 10:15 Dose: 5 mg Diatrizoate Meglum/Diatrizoate Sod (Gastrografin 37%) 60 ml PO ONETIME ONE Stop: 05/28/19 20:49 Last Admin: 05/28/19 21:45 Dose: 60 ml Enoxaparin Sodium (Lovenox) 100 mg SUBCUT Q12H [facility] Enoxaparin Sodium (Lovenox) 90 mg SUBCUT Q12H [facility] Last Admin: 06/01/19 20:49 Dose: 90 mg Heparin Sodium (Porcine) (Heparin Sodium) 5,000 units SUBCUT Q8H [facility] Last Admin: 05/29/19 02:59 Dose: 5,000 units Lactated Ringer's (Ringers, Lactated) 1,000 mls @ 50 mls/hr IV ASDIRECTED [facility] Stop: 05/29/19 14:14 Last Admin: 05/28/19 22:14 Dose: 50 mls/hr Sodium Chloride (Normal Saline) 500 mls @ 999 mls/hr IV .BOLUS ONE Stop: 05/28/19 18:40 Last Admin: 05/28/19 22:14 Dose: 999 mls/hr Iopamidol (Isovue-300 (61%)) 100 ml IVPUSH ONETIME ONE Stop: 05/28/19 20:49 Last Admin: 05/28/19 21:45 Dose: 100 ml Ketorolac Tromethamine (Toradol) 15 mg IV Q6H PRN PRN Reason: Pain (moderate 4-6) Last Admin: 05/29/19 08:48 Dose: 15 mg Ketorolac Tromethamine (Toradol) 15 mg IVPUSH Q8H [facility] Last Admin: 06/01/19 14:59 Dose: 15 mg Lorazepam (Ativan) 0.5 mg PO BID [facility] Last Admin: 05/29/19 10:11 Dose: 0.5 mg Lorazepam (Ativan) 1 mg PO BID PRN PRN Reason: Anxiety Last Admin: 06/01/19 06:37 Dose: 1 mg Metoprolol Succinate (Toprol Xl) 50 mg PO DAILY [facility] Last Admin: 05/29/19 10:15 Dose: 50 mg Metoprolol Succinate (Toprol Xl) 100 mg PO DAILY [facility] Metoprolol Tartrate (Lopressor) 12.5 mg PO BID [facility] Last Admin: 05/29/19 08:31 Dose: 12.5 mg Scopolamine (Transderm-Scop) 1.5 mg TRDERM Q72H ONE Stop: 05/28/19 19:38 Last Admin: 05/28/19 21:06 Dose: 1.5 mg Temazepam (Restoril) 7.5 mg PO BEDTIME PRN PRN Reason: Sleep Last Admin: 05/29/19 23:20 Dose: 7.5 mg Warfarin Sodium (Coumadin) 5 mg PO DAILY@1800 [facility] Warfarin Sodium (Coumadin) 5 mg PO DAILY@1800 [facility] Stop: 05/29/19 18:01 Last Admin: 05/29/19 18:14 Dose: 5 mg Warfarin Sodium (Coumadin) 5 mg PO QPM [facility] Stop: 05/30/19 18:01 Last Admin: 05/30/19 17:23 Dose: 5 mg Warfarin Sodium (Coumadin) 5 mg PO DAILY@1800 [facility] Warfarin Sodium (Coumadin) 7.5 mg PO QPM [facility] Stop: 05/31/19 18:01 Last Admin: 05/31/19 17:04 Dose: 7.5 mg Warfarin Sodium (Coumadin) 5 mg PO ONETIME ONE Stop: 06/01/19 18:01 Last Admin: 06/01/19 18:07 Dose: 5 mg Zolpidem Tartrate (Ambien) 10 mg PO BEDTIME [facility] Zolpidem Tartrate (Ambien) 5 mg PO BEDTIME [facility] Last Admin: 05/30/19 20:45 Dose: 5 mg Zolpidem Tartrate (Ambien) 10 mg PO BEDTIME [facility] Last Admin: 05/31/19 21:08 Dose: 10 mg - Exam General: Reports: Alert, Oriented, Cooperative, No Acute Distress HEENT: Reports: Pupils Equal, Pupils Reactive, EOMI, Mucous Membr. Moist/[place] Neck: Reports: Supple Lungs: Reports: Clear to Auscultation, Normal Respiratory Effort Cardiovascular: Reports: Irregular Rhythm GI/Abdominal Exam: Normal Bowel Sounds, Soft, Non-Tender, No Organomegaly, No Distention, No Abnormal Bruit (Female) Exam: Deferred Rectal (Female) Exam: Deferred Back Exam: Reports: Normal Inspection, Decreased Range of Motion Extremities: Normal Inspection, Normal Range of Motion, Non-Tender, No Pedal Edema, Normal Capillary Refill, Other Skin: Reports: Dry, Intact Neurological: Reports: No New Focal Deficit Psy/Mental Status: Reports: Alert, Normal Affect, Normal Mood
[2019-06-02] MEDS ORDERED: Warfarin 5 MG Tab PO SCH (18:00)
--- NOTE | 2019-06-03 08:16 | CONS ---
CONSULTING PHYSICIAN: Orlando Jarvis MD DATE OF CONSULTATION: 06/01/2019 Site where the services are provided is [facility] in [place], [place]. Site where the services are provided is from our offices in [facility]. Length of service for this 60-minute inpatient telemedicine event is 60 minutes. IDENTIFICATION: The patient is a 68-year-old female who is admitted to the inpatient Med Surg Unit at [facility] in [place], [place], on 05/28/2019. She is seen for psychiatric consultation per the request of staff attending, Dr. Singh and his treatment team. CHIEF COMPLAINT: "I have been sick just a very long time. My heart is doing strange things and my digestive symptom is on the blink." HISTORY OF PRESENT ILLNESS: The patient is a 68-year-old female who is admitted for abdominal pain on 05/28/2019 and subsequently was identified as having AFib and is now being treated for this condition as well while her GI issues are worked up. The patient is being seen now to assess for sleep issues. The patient states that she is having difficulty sleeping, noting "I don't sleep. I can't fall asleep, and when I do, I can't stay asleep for long. I'm always anxious. I just don't relax." The patient goes on to note "I don't think I'm depressed," but she does state that she gets "a little angry because of my health." She states that she used to be very active, but at this point in time, "I'm limited" and that is very frustrating to the patient. She does state when she goes on to talk that not only does she get angry, she gets a little depressed about her situation. She states she was not feeling depressed earlier. She states she definitely feels that "I should state the anxiety. I just can't relax." It is the most prominent symptom of her presentation. The patient is denying that she is suicidal or homicidal. She denies any psychotic, delusional, or paranoid symptoms. She denies any illicit substance use or excessive alcohol use complicating her clinical picture. She does have a lot of racing thoughts and ruminations and worries. MEDICATIONS: At the time of presentation: 1. Ativan 1 mg b.i.d., which the patient feels that it helps a little bit. 2. Ambien 5 mg at bedtime. 3. Baclofen. 4. Amlodipine. 5. Metformin. 6. Omeprazole. ALLERGIES: 1. Cymbalta. 2. Hydrocodone. 3. Savella. 4. Penicillin. 5. Lyrica. 6. Zoloft, which causes rash. 7. Tramadol. 8. Lactose. 9. . PAST MEDICAL HISTORY: 1. AFib, new onset. 2. Abdominal pain of unknown etiology. 3. Fibromyalgia. REVIEW OF SYSTEMS: Aside from cardiovascular, GI, and musculoskeletal, all other major organ systems are negative at this point in time for acute difficulties or complications. FAMILY PSYCHIATRIC AND CD HISTORY: The patient does report that there is a history of anxiety in the family. PAST PSYCHIATRIC AND CD HISTORY: The patient reports 1 psychiatric hospitalization in the past "many years ago," and denies any chemical dependency treatments. Denies any suicide attempts or self-injurious behaviors in the past. PAST PSYCHIATRIC MEDICATION HISTORY: Includes Zoloft and Cymbalta. SOCIAL HISTORY: The patient was born and raised in [place], [place]. She used to work in home health care. She was twice, has 2 daughters from her 1st marriage. She states that her 2nd about 3 years ago and she is living by herself in [place] at this point in time. She enjoys work activities. She is not reporting any past service or any legal issues, and she is Anglican in terms of her claudia formation. MENTAL STATUS EXAM: The patient is a 68-year-old white female in no apparent distress. Speech is of regular rate and rhythm. The patient is cognitively oriented x3. Psychomotor activity is within normal limits. There are no abnormal motor movements or tics observed. Gait and station are not observed. This patient is seated for the purposes of the inpatient consult. Mood is anxious and somewhat depressed as well as with thoughts of anger and irritability. Affect is cooperative overall for the purposes of the inpatient consult, but does become somewhat tearful at times throughout the course of the interview. There is no behavioral or stated evidence of acute suicidal or homicidal ideation or acute psychotic, delusional, or paranoid symptoms. Thought processes are significant for some racing thoughts or ruminations. However, there are no acute manic symptoms or loose associations evident. Judgment and insight appear unimpaired at this point in time. Motivation for help is good. VITALS: 116/60, 64, 18, 97.3 degrees. IMPRESSION: [place] I: 1. Bipolar affective disease, mixed type, F31.60. 2. Anxiety disorder, not otherwise specified, F41.9. 3. History of insomnia. 4. Rule out major depressive disorder. [place] II: None. [place] III: 1. Atrial fibrillation, new onset. 2. History of abdominal pain. 3. History of fibromyalgia. [place] IV: Severe. [place] V: 55 to 60. PLAN: 1. Discontinue Ambien. This medication appears ineffective for sleep initiation and maintenance at this point in time for the patient. 2. Begin trial of Seroquel 75 mg at bedtime to help with clarity of thought, mood stability, anxiety reduction, sleep initiation and maintenance. 3. Begin trial of Topamax 25 mg b.i.d. for mood stability and anxiety reduction. 4. Increase the patient's Ativan from 1 mg b.i.d. to 1 mg t.i.d. for anxiety reduction. 5. Other medications as dosed and prescribed by the patient's primary inpatient care provider and treatment team. 6. The patient is apprised of benefits and side effects of her newly initiated psychiatric medication regimen. She acknowledges understanding of these facts and has no further questions by the end of the interview session. 7. Recommend that the patient is medically stabilized and discharged back to community, that she follows up with Outpatient Psychiatry to assess overall function and efficacy of her newly initiated psychiatric medication regimen. 8. We will continue to follow up with the patient on an as-needed basis while the patient remains on the inpatient Med Surg Unit at [facility] in [place], [place]. 9. We will follow up with the patient sooner if any complications in the interim. 10.Crisis plan is in place. RUTH /[id number]
== END 2019-06-02 13:04 | disposition home or self-care (01) | DRG 309 ==
LOC: JD.MS 17:25
PROVIDERS: ADMIT Internal Medicine; ATTEND Internal Medicine
DX: I48.91 Unspecified atrial fibrillation (principal); F31.60 Bipolar disorder, current episode mixed, unspecified; K52.9 Noninfective gastroenteritis and colitis, unspecified; M79.7 Fibromyalgia; I10 Essential (primary) hypertension; K21.9 Gastro-esophageal reflux disease without esophagitis; M19.90 Unspecified osteoarthritis, unspecified site; M54.9 Dorsalgia, unspecified; M85.80 Other specified disorders of bone density and structure, unspecified site; F41.9 Anxiety disorder, unspecified; E11.65 Type 2 diabetes mellitus with hyperglycemia; E78.5 Hyperlipidemia, unspecified; G47.00 Insomnia, unspecified; R79.1 Abnormal coagulation profile; N28.1 Cyst of kidney, acquired; N20.0 Calculus of kidney; F39 Unspecified mood [affective] disorder; H54.7 Unspecified visual loss; E66.9 Obesity, unspecified; G89.29 Other chronic pain; Z91.011 Allergy to milk products; Z88.8 Allergy status to other drugs, medicaments and biological substances; Z88.0 Allergy status to penicillin; Z88.1 Allergy status to other antibiotic agents; Z91.030 Bee allergy status; Z91.018 Allergy to other foods; Z79.82 Long term (current) use of aspirin; Z79.84 Long term (current) use of oral hypoglycemic drugs; Z79.899 Other long term (current) drug therapy; Z87.11 Personal history of peptic ulcer disease; Z71.6 Tobacco abuse counseling; Z90.710 Acquired absence of both cervix and uterus; Z90.49 Acquired absence of other specified parts of digestive tract; Z98.890 Other specified postprocedural states; Z68.35 Body mass index [BMI] 35.0-35.9, adult
CPT/HCPCS: 36415; 74177; 74177-26; 80053; 82553; 82962; 83690; 83735; 84436; 84443; 84484; 85025; 85610; 86140; 86677; 87493; 90662; 93005; 93306; 97161-GP; 97165-GO; 99222; 99232; 99238; A9270-GY; G0008; J1644; J1650; J1885; J7030; J7120; Q3014; Q9963; Q9967

== ENCOUNTER 2021-06-26 21:16 | Emergency (ER) | payer MEDICARE, BC ==
[2021-06-26 21:45] VITALS: BP 156/100; PULSE 71
[2021-06-26] MEDS ORDERED: Sodium Chloride 0.9% 10 ML Syringe FLUSH PRN (21:47)
[2021-06-26] MEDS ORDERED: Albuterol/Ipratropium 3.0-0.5 MG/3 ML Neb Soln NEB ONE (22:48)
== END 2021-06-26 23:27 | disposition home or self-care (01) ==
LOC: JD.ED 21:16
DX: R06.00 Dyspnea, unspecified (principal); F17.200 Nicotine dependence, unspecified, uncomplicated; Z20.822 Contact with and (suspected) exposure to COVID-19
CPT/HCPCS: 36415; 71045; 80053; 83880; 84484; 85025; 85379; 86140; 93005; 94640; 99284; U0002; J7620-GY

== ENCOUNTER 2022-05-27 12:43 | Emergency (ER) | payer MEDICARE, BC ==
[2022-05-27] MEDS ORDERED: Sodium Chloride 0.9% 10 ML Syringe FLUSH PRN (14:08)
[2022-05-27] MEDS ORDERED: Diltiazem 125 MG in Sodium Chloride 0.9% 100 ML IV SCH (14:30)
[2022-05-27] MEDS ORDERED: Diltiazem 25 MG/5 ML SDV IVPUSH ONE (14:33)
[2022-05-27 14:36] LABS: ESTIMATED GFR 59 mL/min (>60)
[2022-05-27] MEDS ORDERED: Furosemide 40 MG/4 ML VIAL IVPUSH ONE (14:55)
[2022-05-27 15:13] LABS: CORONAVIRUS COVID-19 NAA NEGATIVE (NEGATIVE)
[2022-05-27] MEDS ORDERED: LORazepam 1 MG Tab PO ONE (15:33)
[2022-05-27] MEDS ORDERED: LORazepam 1 MG Tab ONE (15:35)
[2022-05-27] MEDS ORDERED: cefTRIAXone 2 GM in Sodium Chloride 0.9% 100 ML IV ONE (16:50)
[2022-05-27] MEDS ORDERED: Metoprolol Tartrate 50 MG Tab PO ONE (18:44)
[2022-05-27] MEDS ORDERED: Acetaminophen 325 MG Tab PO ONE (20:12)
[2022-05-27 22:37] VITALS: BP 127/68; PULSE 82
== END 2022-05-27 22:36 | disposition home or self-care (01) ==
LOC: JD.ED 12:43
DX: I48.91 Unspecified atrial fibrillation (principal); N30.00 Acute cystitis without hematuria; I11.0 Hypertensive heart disease with heart failure; I50.9 Heart failure, unspecified; M19.90 Unspecified osteoarthritis, unspecified site; E11.9 Type 2 diabetes mellitus without complications; E66.9 Obesity, unspecified; Z68.32 Body mass index [BMI] 32.0-32.9, adult; Z72.0 Tobacco use; Z91.011 Allergy to milk products; Z88.8 Allergy status to other drugs, medicaments and biological substances; Z88.5 Allergy status to narcotic agent; Z88.0 Allergy status to penicillin; Z91.030 Bee allergy status; Z91.048 Other nonmedicinal substance allergy status; Z91.018 Allergy to other foods; Z79.84 Long term (current) use of oral hypoglycemic drugs; Z79.01 Long term (current) use of anticoagulants; Z79.899 Other long term (current) drug therapy; Z20.822 Contact with and (suspected) exposure to COVID-19
CPT/HCPCS: 0241U; 36415; 71045; 80053; 81001; 83880; 84439; 84443; 84484; 85025; 85610; 86140; 87086; 87088; 87186; 93005; 96365; 96366; 96368; 96375; 96376; 99285; A9270; J0696; J1940; J3490

== ENCOUNTER 2022-08-17 20:15 | Inpatient (IN) | payer MEDICARE, BC ==
[2022-08-17 21:14] LABS: ESTIMATED GFR 48 mL/min (>60)
[2022-08-17 22:25] LABS: CORONAVIRUS COVID-19 NAA NEGATIVE (NEGATIVE)
[2022-08-17] MEDS ORDERED: Albuterol/Ipratropium 3.0-0.5 MG/3 ML Neb Soln NEB ONE (22:46)
[2022-08-17] MEDS ORDERED: Diltiazem 25 MG/5 ML SDV IVPUSH ONE ×3 (22:47→22:59)
[2022-08-17] MEDS ORDERED: Lactated Ringers 500 ML IV ONE (23:03)
[2022-08-17] MEDS ORDERED: Diltiazem 125 MG in Sodium Chloride 0.9% 100 ML IV SCH (23:45)
[2022-08-17] MEDS ORDERED: Levofloxacin/Dextrose 5%-Water 500 MG in Premix Bag 1 BAG IV ONE (23:47)
[2022-08-18] MEDS ORDERED: Docusate Sodium 100 MG Cap PO PRN (00:17)
[2022-08-18] MEDS ORDERED: Sodium Chloride 0.9% 10 ML Syringe FLUSH PRN (00:17)
[2022-08-18] MEDS ORDERED: Ondansetron 4 MG/2 ML SDV IV PRN (00:17)
[2022-08-18] MEDS ORDERED: Ondansetron 4 MG Tab.DIS PO PRN (00:17)
[2022-08-18] MEDS ORDERED: Levofloxacin 500 MG Tab PO SCH (00:30)
[2022-08-18] MEDS ORDERED: Diltiazem 125 MG in Sodium Chloride 0.9% 100 ML IV SCH (00:30)
[2022-08-18] MEDS ORDERED: Sucralfate Suspension 1 GM/10 ML Cup PO ONE (01:05)
[2022-08-18] MEDS: Diltiazem IR 60 MG Tab PO SCH ×5 (02:29→23:15)
[2022-08-18] MEDS ORDERED: Haloperidol Lactate 5 MG/ML SDV IVPUSH ONE (04:01)
[2022-08-18] MEDS ORDERED: Haloperidol Lactate 5 MG/ML SDV ONE (04:08)
[2022-08-18] MEDS ORDERED: OLANZapine 10 MG Vial IM STA (04:54)
[2022-08-18] MEDS: Metoprolol Tartrate 25 MG Tab PO SCH ×2 (08:38→21:05)
[2022-08-18] MEDS ORDERED: Acetaminophen/Butalbital/Caffeine 325-50-40 MG Tab PO ONE ×2 (08:53→17:21)
[2022-08-18] MEDS ORDERED: Baclofen 10 MG Tab PO PRN (16:53)
[2022-08-18] MEDS ORDERED: Albuterol 6.7 GM Inhaler INH PRN (16:53)
[2022-08-18] MEDS: Warfarin 5 MG Tab PO SCH (17:41)
[2022-08-18] MEDS ORDERED: Zolpidem 5 MG Tab PO SCH (21:00)
[2022-08-18] MEDS ORDERED: PROPAFENONE 150 MG PO SCH (21:00)
[2022-08-18] MEDS: LORazepam 1 MG Tab PO PRN (21:05)
[2022-08-18] MEDS: Levofloxacin 500 MG Tab PO SCH (21:05)
[2022-08-18] MEDS: QUEtiapine 25 MG Tab PO SCH (21:05)
[2022-08-18] MEDS: Formoterol/Mometasone 200-5 MCG 8.8 GM Inhaler IH SCH (21:06)
[2022-08-18] MEDS: guaiFENesin 600 MG Tab.ER PO SCH (21:06)
[2022-08-19] MEDS: Diltiazem IR 60 MG Tab PO SCH (06:03)
[2022-08-19] MEDS: Pantoprazole 40 MG Tab.CR PO SCH (06:03)
[2022-08-19] MEDS: Torsemide 20 MG Tab PO SCH (08:41)
[2022-08-19] MEDS: Metoprolol Tartrate 25 MG Tab PO SCH (08:42)
[2022-08-19] MEDS: guaiFENesin 600 MG Tab.ER PO SCH ×2 (08:42→20:05)
[2022-08-19] MEDS: Formoterol/Mometasone 200-5 MCG 8.8 GM Inhaler IH SCH ×2 (08:43→20:44)
[2022-08-19] MEDS: Diltiazem 180 MG Cap.CD PO SCH (11:43)
[2022-08-19] MEDS: Nystatin Topical Powder 15 GM Bottle TOP PRN (11:44)
[2022-08-19] MEDS: Acetaminophen 325 MG Tab PO PRN ×2 (13:53→21:36)
[2022-08-19] MEDS: traMADol 50 MG Tab PO PRN ×2 (16:03→21:37)
[2022-08-19] MEDS: Warfarin 5 MG Tab PO SCH (18:02)
[2022-08-19] MEDS: QUEtiapine 25 MG Tab PO SCH (20:01)
[2022-08-19] MEDS: LORazepam 1 MG Tab PO PRN (20:02)
[2022-08-19] MEDS: Levofloxacin 500 MG Tab PO SCH (20:05)
[2022-08-20] MEDS: Acetaminophen 325 MG Tab PO PRN (03:58)
[2022-08-20] MEDS: traMADol 50 MG Tab PO PRN (03:59)
[2022-08-20] MEDS: Pantoprazole 40 MG Tab.CR PO SCH (06:41)
[2022-08-20] MEDS: Diltiazem 180 MG Cap.CD PO SCH (08:09)
[2022-08-20] MEDS: guaiFENesin 600 MG Tab.ER PO SCH (08:09)
[2022-08-20] MEDS: Torsemide 20 MG Tab PO SCH (08:09)
[2022-08-20] MEDS: Nystatin Topical Powder 15 GM Bottle TOP PRN (08:11)
[2022-08-20] MEDS: Formoterol/Mometasone 200-5 MCG 8.8 GM Inhaler IH SCH (08:19)
[2022-08-20 10:12] VITALS: BP 111/87; PULSE 82
[2022-08-20] MEDS ORDERED: Diltiazem 180 MG Cap.CD PO SCH (12:00)
[2022-08-20] MEDS ORDERED: Warfarin 5 MG Tab PO SCH (18:00)
== END 2022-08-20 10:20 | disposition home or self-care (01) | DRG 70 ==
LOC: JD.ED 20:15 → JD.ICU 08-18 00:17
PROVIDERS: ADMIT Hospitalist; ATTEND Hospitalist
DX: G93.40 Encephalopathy, unspecified (principal); I21.A1 Myocardial infarction type 2; N30.00 Acute cystitis without hematuria; I48.91 Unspecified atrial fibrillation; E11.9 Type 2 diabetes mellitus without complications; J44.9 Chronic obstructive pulmonary disease, unspecified; G47.00 Insomnia, unspecified; B96.20 Unspecified Escherichia coli [E. coli] as the cause of diseases classified elsewhere; F29 Unspecified psychosis not due to a substance or known physiological condition; Z66 Do not resuscitate; Z88.8 Allergy status to other drugs, medicaments and biological substances; Z91.011 Allergy to milk products; Z79.84 Long term (current) use of oral hypoglycemic drugs; Z79.899 Other long term (current) drug therapy; Z79.01 Long term (current) use of anticoagulants; Z91.018 Allergy to other foods; Z90.49 Acquired absence of other specified parts of digestive tract; Z90.710 Acquired absence of both cervix and uterus; Z98.890 Other specified postprocedural states; Z56.0 Unemployment, unspecified; Z88.0 Allergy status to penicillin
CPT/HCPCS: 0241U; 36415; 36600; 70450; 70450-26; 71046; 71046-26; 80048; 80053; 80306; 80307; 81001; 82375; 82803; 83605; 84484; 85025; 85610; 85730; 87040; 87086; 87088; 87186; 93005; 93010; 94640; 94762; 96361; 96365; 96366; 96368; 96375; 96376; 99223; 99233; 99239; 99285; 99285-25; A9270-GY; J1630; J1956; J2405; J3490; J7120; J7620-GY

== ENCOUNTER 2022-10-23 00:41 | Emergency (ER) | payer MEDICARE, BC ==
[2022-10-23] MEDS ORDERED: Furosemide 40 MG/4 ML VIAL IVPUSH ONE ×2 (01:08→02:01)
[2022-10-23 01:14] LABS: BASOPHILS ABSOLUTE AUTO 0.02 K/mm3 (0.01-0.08); BASOPHILS PERCENT AUTO 0.2 % (0.1-1.2); EOSINOPHILS ABSOLUTE AUTO 0.02 K/mm3 (0.04-0.36); EOSINOPHILS PERCENT AUTO 0.2 (0.7-5.8); HEMATOCRIT 36.5 % (34.1-44.9); HEMOGLOBIN 11.2 gm/dl (11.2-15.7); IMMATURE GRAN ABSOLUTE AUTO 0.03 K/mm3 (0.00-0.10); IMMATURE GRAN PERCENT AUTO 0.3 % (<=1.0); LYMPHOCYTES ABSOLUTE AUTO 2.02 K/mm3 (1.18-3.74); LYMPHOCYTES PERCENT AUTO 18.4 % (19.3-51.7); MEAN CORPUSCULAR HEMOGLOBIN 27.5 pg (25.6-32.2); MEAN CORPUSCULAR HGB CONC 30.7 g/dl (32.2-35.5); MEAN CORPUSCULAR VOLUME 89.7 fl (79.4-94.8); MEAN PLATELET VOLUME 10.6 fl (9.4-12.3); MONOCYTES ABSOLUTE AUTO 0.94 K/mm3 (0.24-0.36); MONOCYTES PERCENT AUTO 8.6 % (4.7-12.5); NEUTROPHILS ABSOLUTE AUTO 7.93 K/mm3 (1.56-6.13); NEUTROPHILS PERCENT AUTO 72.3 % (34.0-71.1); PLATELET COUNT,PLT 275 K/mm3 (182-369); RED BLOOD CELL COUNT 4.07 M/mm3 (3.98-5.22); WHITE BLOOD CELL COUNT,WBC 10.96 K/mm3 (3.98-10.04)
[2022-10-23 01:36] LABS: INR 2.2; PROTHROMBIN TIME 22.2 SECONDS (9.7-12.0)
[2022-10-23 01:46] LABS: A/G RATIO 0.9 (1-2); ALBUMIN 3.6 g/dl (3.4-5.0); ANION GAP 17.3 (5-15); BILIRUBIN TOTAL 0.8 mg/dL (0.2-1.0); BUN/CREATININE RATIO 21.8 (14-18); CALCIUM 9.6 mg/dL (8.5-10.1); CREATININE 1.1 mg/dL (0.55-1.02); EST CRCL DRUG DOSING (CG) 40.38 mL/min; POTASSIUM,K 4.3 mEq/L (3.5-5.1); PROTEIN TOTAL,TP 7.5 g/dl (6.4-8.2)
[2022-10-23] MEDS ORDERED: Acetaminophen 325 MG Tab PO ONE (03:31)
[2022-10-23 04:38] VITALS: BP 116/83; PULSE 121
== END 2022-10-23 06:28 | disposition home or self-care (01) ==
LOC: JD.ED 00:41
DX: I11.0 Hypertensive heart disease with heart failure (principal); I50.9 Heart failure, unspecified; I48.91 Unspecified atrial fibrillation; K21.9 Gastro-esophageal reflux disease without esophagitis; E11.9 Type 2 diabetes mellitus without complications; E66.9 Obesity, unspecified; Z68.30 Body mass index [BMI] 30.0-30.9, adult; Z91.048 Other nonmedicinal substance allergy status; Z88.8 Allergy status to other drugs, medicaments and biological substances; Z88.0 Allergy status to penicillin; Z88.5 Allergy status to narcotic agent; Z91.030 Bee allergy status; Z91.011 Allergy to milk products; Z79.84 Long term (current) use of oral hypoglycemic drugs; Z79.01 Long term (current) use of anticoagulants; Z79.899 Other long term (current) drug therapy; Z86.16 Personal history of COVID-19
CPT/HCPCS: 36415; 71045; 73030; 80053; 83880; 84484; 85025; 85610; 96374; 96376; 99284; A9270; J1940

== ENCOUNTER 2022-11-12 09:41 | Observation (INO) | payer MEDICARE, BC ==
[2022-11-12 11:46] LABS: BASOPHILS ABSOLUTE AUTO 0.04 K/mm3 (0.01-0.08); BASOPHILS PERCENT AUTO 0.4 % (0.1-1.2); EOSINOPHILS ABSOLUTE AUTO 0.06 K/mm3 (0.04-0.36); EOSINOPHILS PERCENT AUTO 0.6 (0.7-5.8); HEMOGLOBIN 10.5 gm/dl (11.2-15.7); IMMATURE GRAN ABSOLUTE AUTO 0.03 K/mm3 (0.00-0.10); IMMATURE GRAN PERCENT AUTO 0.3 % (<=1.0); LYMPHOCYTES ABSOLUTE AUTO 1.94 K/mm3 (1.18-3.74); LYMPHOCYTES PERCENT AUTO 20.3 % (19.3-51.7); MEAN CORPUSCULAR HEMOGLOBIN 26.7 pg (25.6-32.2); MEAN CORPUSCULAR VOLUME 89.1 fl (79.4-94.8); MEAN PLATELET VOLUME 11.1 fl (9.4-12.3); MONOCYTES ABSOLUTE AUTO 0.86 K/mm3 (0.24-0.36); NEUTROPHILS ABSOLUTE AUTO 6.62 K/mm3 (1.56-6.13); NEUTROPHILS PERCENT AUTO 69.4 % (34.0-71.1); PLATELET COUNT,PLT 249 K/mm3 (182-369); RED BLOOD CELL COUNT 3.93 M/mm3 (3.98-5.22); WHITE BLOOD CELL COUNT,WBC 9.55 K/mm3 (3.98-10.04)
[2022-11-12] MEDS ORDERED: hydrALAZINE 20 MG/ML SDV IVPUSH ONE (11:59)
[2022-11-12] MEDS ORDERED: amLODIPine 5 MG Tab PO ONE (12:01)
[2022-11-12] MEDS ORDERED: Acetaminophen 325 MG Tab PO ONE (12:20)
[2022-11-12 12:22] LABS: INR 2.7; PROTHROMBIN TIME 26.8 SECONDS (9.7-12.0)
[2022-11-12 12:23] LABS: A/G RATIO 0.9 (1-2); ALBUMIN 3.5 g/dl (3.4-5.0); ANION GAP 16.8 (5-15); BILIRUBIN TOTAL 0.9 mg/dL (0.2-1.0); BUN/CREATININE RATIO 23.3 (14-18); CALCIUM 9.5 mg/dL (8.5-10.1); CREATININE 1.2 mg/dL (0.55-1.02); EST CRCL DRUG DOSING (CG) 38.5 mL/min; POTASSIUM,K 3.8 mEq/L (3.5-5.1); PROTEIN TOTAL,TP 7.3 g/dl (6.4-8.2)
[2022-11-12 12:24] LABS: PTT,PARTIAL THROMBOPLSTIN TIME 32.8 SECONDS (21.7-31.4)
[2022-11-12] MEDS ORDERED: Acetaminophen/HYDROcodone 325-5 MG Tab PO ONE (12:59)
[2022-11-12] MEDS ORDERED: Diltiazem IR 30 MG Tab PO ONE (15:22)
[2022-11-12 15:43] LABS: APPEARANCE,URINE SLT CLOUDY (Clear); BILIRUBIN,URINE NEGATIVE (Negative); COLOR,URINE DARK YELLOW (Yellow); GLUCOSE,URINE NEGATIVE (Negative); KETONES,URINE NEGATIVE (Negative); LEUKOCYTE ESTERASE,URINE 1+ (Negative); NITRITE,URINE NEGATIVE (Negative); OCCULT BLOOD,URINE TRACE-INTACT (Negative); PROTEIN,URINE 2+ (Negative)
[2022-11-12 15:51] LABS: BACTERIA,URINE MANY /hpf (FEW); MUCUS,URINE FEW /hpf (FEW); RBC,URINE 0-5 /hpf (0-5); WBC CLUMPS,URINE FEW /hpf (NOT SEEN); WBC,URINE 50-75 /hpf (0-5)
[2022-11-12] MEDS ORDERED: Non-Formulary Medication 1 Each (Budesonide/Formoterol 6 GM Inhaler) INH PRN (15:56)
[2022-11-12] MEDS ORDERED: Ondansetron 4 MG Tab.DIS PO PRN (16:01)
[2022-11-12] MEDS ORDERED: Lactated Ringers 1,000 ML IV SCH (16:15)
[2022-11-12] MEDS ORDERED: Warfarin 5 MG Tab PO SCH (18:00)
[2022-11-12] MEDS: Insulin Regular, Human 100 Units/ML 3 ML Vial SUBCUT SCH (18:41)
[2022-11-12] MEDS: Temazepam 15 MG Cap PO PRN (19:36)
[2022-11-12] MEDS: oxyCODONE 5 MG Tab PO PRN (19:39)
[2022-11-13] MEDS ORDERED: LORazepam 2 MG/ML SDV IM ONE (00:29)
[2022-11-13] MEDS ORDERED: LORazepam 2 MG/ML SDV IV ONE (01:00)
[2022-11-13] MEDS ORDERED: guaiFENesin/Dextromethorphan 100-10 MG/5 ML Soln 5 ML Cup ONE (04:18)
[2022-11-13] MEDS ORDERED: guaiFENesin/Dextromethorphan 100-10 MG/5 ML Soln 5 ML Cup PO PRN (05:30)
[2022-11-13] MEDS: oxyCODONE 5 MG Tab PO PRN ×3 (05:40→15:52)
[2022-11-13 07:03] LABS: A/G RATIO 0.9 (1-2); ALBUMIN 3.3 g/dl (3.4-5.0); ANION GAP 12.9 (5-15); CALCIUM 9.2 mg/dL (8.5-10.1); EST CRCL DRUG DOSING (CG) 46.2 mL/min; MAGNESIUM 1.9 mg/dL (1.8-2.4); POTASSIUM,K 3.9 mEq/L (3.5-5.1)
[2022-11-13 07:04] LABS: INR 2.87; PROTHROMBIN TIME 28.4 SECONDS (9.7-12.0)
[2022-11-13 07:07] LABS: BASOPHILS ABSOLUTE AUTO 0.02 K/mm3 (0.01-0.08); BASOPHILS PERCENT AUTO 0.2 % (0.1-1.2); EOSINOPHILS ABSOLUTE AUTO 0.08 K/mm3 (0.04-0.36); HEMOGLOBIN 10.2 gm/dl (11.2-15.7); IMMATURE GRAN ABSOLUTE AUTO 0.02 K/mm3 (0.00-0.10); IMMATURE GRAN PERCENT AUTO 0.2 % (<=1.0); LYMPHOCYTES ABSOLUTE AUTO 1.81 K/mm3 (1.18-3.74); LYMPHOCYTES PERCENT AUTO 21.6 % (19.3-51.7); MEAN CORPUSCULAR HEMOGLOBIN 26.9 pg (25.6-32.2); MEAN CORPUSCULAR VOLUME 89.7 fl (79.4-94.8); MEAN PLATELET VOLUME 11.3 fl (9.4-12.3); MONOCYTES ABSOLUTE AUTO 0.58 K/mm3 (0.24-0.36); MONOCYTES PERCENT AUTO 6.9 % (4.7-12.5); NEUTROPHILS ABSOLUTE AUTO 5.86 K/mm3 (1.56-6.13); NEUTROPHILS PERCENT AUTO 70.1 % (34.0-71.1); PLATELET COUNT,PLT 214 K/mm3 (182-369); RED BLOOD CELL COUNT 3.79 M/mm3 (3.98-5.22); WHITE BLOOD CELL COUNT,WBC 8.37 K/mm3 (3.98-10.04)
[2022-11-13] MEDS ORDERED: Albuterol 6.7 GM Inhaler INH PRN (07:39)
[2022-11-13] MEDS: Diltiazem 180 MG Cap.CD PO SCH ×2 (07:39→08:04)
[2022-11-13] MEDS ORDERED: Pantoprazole 40 MG Tab.CR PO SCH ×3 (07:45→17:00)
[2022-11-13] MEDS: Metoprolol Succinate 50 MG Tab.ER PO SCH (08:00)
[2022-11-13] MEDS: Lidocaine 4% 1 each Patch TOP SCH (08:00)
[2022-11-13] MEDS: Lisinopril 2.5 MG Tab PO SCH (08:00)
[2022-11-13] MEDS: Aspirin 81 MG Tab.EC PO SCH (08:01)
[2022-11-13] MEDS: Clopidogrel 75 MG Tab PO SCH (08:01)
[2022-11-13] MEDS: guaiFENesin 600 MG Tab.ER PO SCH ×3 (08:01→20:44)
[2022-11-13] MEDS: Insulin Regular, Human 100 Units/ML 3 ML Vial SUBCUT SCH ×3 (08:04→18:23)
[2022-11-13] MEDS: Labetalol 100 MG in Sodium Chloride 0.9% 80 ML IV SCH ×2 (08:44→10:19)
[2022-11-13] MEDS ORDERED: IPRATROPIUM INH SCH (09:00)
[2022-11-13] MEDS ORDERED: Torsemide 20 MG Tab PO SCH (09:00)
[2022-11-13] MEDS: Torsemide 20 MG Tab PO SCH (09:46)
[2022-11-13 11:18] LABS: HEMOGLOBIN A1C 6.7 %
[2022-11-13] MEDS ORDERED: Sodium Chloride 0.9% 500 ML IV ONE ×3 (13:16→16:24)
[2022-11-13] MEDS: LORazepam 1 MG Tab PO PRN ×2 (13:27→16:32)
[2022-11-13] MEDS: Phenylephrine 10 MG in Sodium Chloride 0.9% 99 ML IV SCH ×9 (14:52→23:48)
[2022-11-13] MEDS ORDERED: Warfarin 2.5 MG Tab PO SCH (18:00)
[2022-11-13] MEDS ORDERED: QUEtiapine 25 MG Tab PO ONE (20:00)
[2022-11-13 21:19] VITALS: PULSE 90
[2022-11-13 21:38] LABS: APPEARANCE,URINE SLT CLOUDY (Clear); BILIRUBIN,URINE NEGATIVE (Negative); COLOR,URINE YELLOW (Yellow); GLUCOSE,URINE NEGATIVE (Negative); KETONES,URINE NEGATIVE (Negative); LEUKOCYTE ESTERASE,URINE 2+ (Negative); NITRITE,URINE NEGATIVE (Negative); OCCULT BLOOD,URINE TRACE-LYSED (Negative); PROTEIN,URINE NEGATIVE (Negative)
[2022-11-13 22:11] LABS: BACTERIA,URINE MANY /hpf (FEW); EPITHELIAL CELLS,URINE 0-5 /hpf (0-5); MUCUS,URINE NOT SEEN /hpf (FEW); RBC,URINE NOT SEEN /hpf (0-5); WBC CLUMPS,URINE FEW /hpf (NOT SEEN)
[2022-11-14] MEDS: Phenylephrine 10 MG in Sodium Chloride 0.9% 99 ML IV SCH ×7 (00:53→09:12)
[2022-11-14] MEDS: Temazepam 15 MG Cap PO PRN (02:56)
[2022-11-14 04:42] VITALS: BP 116/101
[2022-11-14] MEDS ORDERED: Sodium Chloride 0.9% 500 ML IV ONE (05:12)
[2022-11-14] MEDS: Norepinephrine 4 MG in Dextrose 5% in Water 246 ML IV SCH ×4 (05:26→11:58)
[2022-11-14 05:55] LABS: BASOPHILS ABSOLUTE AUTO 0.01 K/mm3 (0.01-0.08); BASOPHILS PERCENT AUTO 0.1 % (0.1-1.2); EOSINOPHILS ABSOLUTE AUTO 0.01 K/mm3 (0.04-0.36); EOSINOPHILS PERCENT AUTO 0.1 (0.7-5.8); HEMATOCRIT 34.9 % (34.1-44.9); HEMOGLOBIN 10.3 gm/dl (11.2-15.7); IMMATURE GRAN ABSOLUTE AUTO 0.06 K/mm3 (0.00-0.10); IMMATURE GRAN PERCENT AUTO 0.6 % (<=1.0); LYMPHOCYTES ABSOLUTE AUTO 1.72 K/mm3 (1.18-3.74); LYMPHOCYTES PERCENT AUTO 16.2 % (19.3-51.7); MEAN CORPUSCULAR HEMOGLOBIN 26.7 pg (25.6-32.2); MEAN CORPUSCULAR HGB CONC 29.5 g/dl (32.2-35.5); MEAN CORPUSCULAR VOLUME 90.4 fl (79.4-94.8); MEAN PLATELET VOLUME 11.5 fl (9.4-12.3); MONOCYTES ABSOLUTE AUTO 1.06 K/mm3 (0.24-0.36); NEUTROPHILS ABSOLUTE AUTO 7.75 K/mm3 (1.56-6.13); PLATELET COUNT,PLT 225 K/mm3 (182-369); RED BLOOD CELL COUNT 3.86 M/mm3 (3.98-5.22); WHITE BLOOD CELL COUNT,WBC 10.61 K/mm3 (3.98-10.04)
[2022-11-14 06:30] LABS: A/G RATIO 0.9 (1-2); ANION GAP 22.2 (5-15); BILIRUBIN TOTAL 1.3 mg/dL (0.2-1.0); BUN/CREATININE RATIO 17.4 (14-18); CALCIUM 8.5 mg/dL (8.5-10.1); CREATININE 1.9 mg/dL (0.55-1.02); EST CRCL DRUG DOSING (CG) 24.32 mL/min; PROTEIN TOTAL,TP 6.4 g/dl (6.4-8.2)
[2022-11-14 06:43] LABS: POTASSIUM,K 5.2 mEq/L (3.5-5.1)
[2022-11-14 06:50] LABS: O2 SATURATION ARTERIAL 95.6 % (96.0-97.0); PCO2 ARTERIAL 28.5 mmHg (35.0-45.0)
[2022-11-14 06:51] LABS: BASE EXCESS ARTERIAL -14.3 (-2-2.0); BICARBONATE,ARTERIAL 11.7 meq/L (22.0-26.0)
[2022-11-14] MEDS ORDERED: Sodium Chloride 0.9% 1,000 ML ONE (07:17)
[2022-11-14] MEDS ORDERED: Sodium Chloride 0.9% 1,000 ML IV ONE ×2 (07:17→08:30)
[2022-11-14] MEDS ORDERED: cefTRIAXone 2 GM in Sodium Chloride 0.9% 100 ML IV SCH (07:30)
[2022-11-14 07:51] LABS: LACTIC ACID 6.8 mmol/L (0.4-2.0)
[2022-11-14 08:23] LABS: SLIDE REVIEW ABNORMAL SMEAR
[2022-11-14] MEDS ORDERED: Pantoprazole 40 MG Vial IVPUSH SCH (09:00)
[2022-11-14] MEDS: Lidocaine 4% 1 each Patch TOP SCH (09:00)
[2022-11-14] MEDS ORDERED: Phenylephrine 25 MG in Sodium Chloride 0.9% 247.5 ML IV SCH (09:30)
[2022-11-14] MEDS: Phenylephrine 25 MG in Sodium Chloride 0.9% 247.5 ML IV SCH ×2 (10:18→15:40)
[2022-11-14] MEDS: Diltiazem 180 MG Cap.CD PO SCH (10:26)
[2022-11-14] MEDS: Torsemide 20 MG Tab PO SCH (10:33)
[2022-11-14] MEDS: Insulin Regular, Human 100 Units/ML 3 ML Vial SUBCUT SCH ×2 (10:36→17:14)
[2022-11-14] MEDS: Metoprolol Succinate 50 MG Tab.ER PO SCH (10:36)
[2022-11-14] MEDS: Lisinopril 2.5 MG Tab PO SCH (10:36)
[2022-11-14] MEDS: Aspirin 81 MG Tab.EC PO SCH (11:22)
[2022-11-14] MEDS: Clopidogrel 75 MG Tab PO SCH (11:22)
[2022-11-14] MEDS: guaiFENesin 600 MG Tab.ER PO SCH (11:22)
[2022-11-14 11:35] LABS: INR 5.95; PROTHROMBIN TIME 55.8 SECONDS (9.7-12.0)
[2022-11-14] MEDS ORDERED: Norepinephrine 16 MG in Dextrose 5% in Water 234 ML IV SCH ×2 (12:30)
[2022-11-14] MEDS ORDERED: 50% Dextrose in Water 50 ML Syringe IVPUSH PRN (17:24)
[2022-11-14] MEDS ORDERED: 50% Dextrose in Water 50 ML Syringe ONE (17:27)
[2022-11-14] MEDS ORDERED: Warfarin Sliding Scale PO SCH (18:00)
== END 2022-11-14 20:12 | disposition expired ==
LOC: JD.ED 09:41 → JD.MS 15:31 → JD.ICU 11-13 08:15
PROVIDERS: ADMIT Internal Medicine; ATTEND Internal Medicine
DX: A41.51 Sepsis due to Escherichia coli [E. coli] (principal); R65.21 Severe sepsis with septic shock; G93.40 Encephalopathy, unspecified; R41.82 Altered mental status, unspecified; I48.91 Unspecified atrial fibrillation; F51.04 Psychophysiologic insomnia; I11.0 Hypertensive heart disease with heart failure; I50.20 Unspecified systolic (congestive) heart failure; E78.00 Pure hypercholesterolemia, unspecified; F41.9 Anxiety disorder, unspecified; F32.A Depression, unspecified; G47.30 Sleep apnea, unspecified; E11.9 Type 2 diabetes mellitus without complications; E66.9 Obesity, unspecified; Z79.899 Other long term (current) drug therapy; Z79.84 Long term (current) use of oral hypoglycemic drugs; Z79.82 Long term (current) use of aspirin; Z79.01 Long term (current) use of anticoagulants; Z88.0 Allergy status to penicillin; Z88.8 Allergy status to other drugs, medicaments and biological substances; Z88.3 Allergy status to other anti-infective agents; Z88.6 Allergy status to analgesic agent; Z91.048 Other nonmedicinal substance allergy status; Z86.16 Personal history of COVID-19
CPT/HCPCS: 36415; 36600; 70450; 71045; 80053; 81001; 82803; 82947; 83036; 83605; 83735; 83880; 84484; 85025; 85610; 85730; 86140; 87040; 87086; 87088; 87186; 93005; 97116; 97162; 97166; 97530; 99285; A9270; C9113; J0696; J1815; J2060; J2370; J3490; J7030; J7050; J7060; J7120; 93010; 96374; 99223; 99233; 99239; G0378